=== PATIENT | female | born 1965 | race Hispanic/Latino ===

== ENCOUNTER 2022-02-28 14:16 | Emergency (ER) | payer OTHER, SELFPAY ==
--- OUTSIDE RECORDS SUMMARY | 2022-02-28 14:25 | XMS REPORT | Continuity of Care Document ---
:1965 Author Organization [facility] t Address [address] [place] [address] Dr. H[address]. [address] [place] [address] Care Team Providers Name Role Phone Pcp, Patient Does Not Have A Primary Care Physician [id number] Yoandy CAMPOS, Jenny Daniels Attending Clinician Quin Akbar Attending Clinician Lana Chirinos LVN Attending Clinician Hernán CASTAÑEDA, Eduardo Zarate Attending Clinician HARVEY GILES Attending Clinician Unavailable Corey CASTAÑEDA, Sriram Love Attending Clinician Sheldon Weir MD Attending Clinician Hugh CASTAÑEDA, Refugio Hodge Attending Clinician Liliam CASTAÑEDA, Ruddy Richard Attending Clinician Harvey Giles MD Attending Clinician HANNAH DILLARD Attending Clinician Unavailable Hannah Dillard DO Attending Clinician Doctor Unassigned, [place] Attending Clinician Unavailable Brendan Wolf Attending Clinician HARVEY GILES Admitting Clinician Unavailable Harvey Giles MD Admitting Clinician Payers Payer Name Policy Type Policy Number Effective Date Expiration Date Fay sommer [facility] [id number] 2019 PPO 00:00:00 Problems Condition Condition Condition Status Onset Resolution Last Treating Co mments Source Name Details Category Date Date Treatment Clinician Date Morbid Morbid Disease Active Univers obesity obesity 6-18 [place] mass index mass index 00 Me dical of 50 or of 50 or Branch higher higher Pulmonary Pulmonary Disease Active Uni vers embolus, embolus, 6-17 ity of left left 00:00: [place] 00 Medical Branch Exposure Exposure Disease Active Unive rs of vaginal of vaginal 08-15 it y of mesh mesh 00:00: [place] through through Medical vaginal vaginal Branch wall wall Vaginismus Vaginismus Disease Active U nivers 4-03 ity of 00:00: [place] [facility] Dyspareuni Dyspareuni Disease Active U nivers a a 4-03 ity of 00:00: [place] [facility] Normal Normal Disease Active Univers breast breast 3-08 ity of exam exam 00:00: [place] 00 Medical Branch Normal Normal Disease Active Univers breast breast 3-08 ity of exam exam 00:00: [place] 00 Medical Branch Chronic Chronic Disease Active 2009-05 Univers pain pain 2-16 ity of syndrome syndrome 00:00: [place] 00 Medical Branch Subclinica Subclinica Disease Active 2009-05 U nivers l l 2-16 ity of hypothyroi hypothyroi 00:[place] dism dism 00 Medical [place] Cervicalgi Cervicalgi Disease Active 2005-05 U nivers a a 2-11 ity of 00:00: [place] 00 Medical Branch Myalgia Myalgia Disease Active 2005-05 Overview: Univ ers and and 05-24 Formattin ity of myositis myositis 00:00: g of this [place] 00 note Medical might be Branch different from the original. 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 classified classified Br anch Simple and Simple and Disease Active Overview : Univers unspecifie unspecifie 01-03 Formattin ity of d goiter d goiter 00:00: g of this [place] 00 note Medical might be Branch different from the original. 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 Arms and legs Urinary Urinary Disease Active Overview: Univ ers incontinen incontinen 01-03 Formattin ity of ce ce 00:00: g of this [place] 00 note Medical might be Branch different from the original. 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 Positive R0, a sed rate of 48, and positive RA factor; hep C is neg and so is the anti-CCP Ab. Anti-DNA was negative too. Allergies, Adverse Reactions, Alerts Allergy Allergy Status Severity Reaction(s) Onset Inactive Treating Comm ents Source Name Type Date Date Clinician NO KNOWN Drug Active Univers ALLERGIE Class ity of S [facility] Social History Social Habit Start Date Stop Date Quantity Comments Source Alcohol intake 2021-10-30 2021-10-30 Current University of 00:00:00 00:00:00 non-drinker of [facility] alcohol (finding) Branch Exposure to 2021-10-19 2021-10-29 Not sure University SARS-CoV-2 00:00:00 16:16:00 [place] Medical (event) Branch Tobacco use and 2012-07-20 2012-07-20 Smokeless tobacco Un iversity of exposure 00:00:00 00:00:00 non-user [facility] Tobacco Comment 2006-08-01 2006-08-01 Basically a Universi ty of 00:00:00 00:00:00 non-smoker. [facility] Sex Ass[birth year] At [birth year] Universit y of 00:00:00 00:00:00 [facility] Smoking Status Start Date Stop Date Source Never smoked tobacco [facility] Medications Ordered Filled Start Stop Current Ordering Indication Dosage Frequency Signature Comments Components Source Medication Medication Date Date Medication? Clinician (SIG) Name Name INSTILL 4 2021-0 No DROPS INTO 12-02 AFFECTED 00:00: EAR THREE 00 TIMES DAILY FOR 7 DAYS Dose 2021-0 No Unknown 12-02 00:00: 00 Dose 2021-0 No Unknown 12-02 00:00: 00 Dose 2-0 No 250 Unknown 12-02 00:00: 00 Dose 2-0 No Unknown 12-02 00:00: 00 INSTILL 4 2021-0 No DROPS INTO 12-02 AFFECTED 00:00: EAR THREE 00 TIMES DAILY FOR 7 DAYS Dose 2-0 No Unknown 12-02 00:00: 00 Dose 2022-0 No Unknown 12-02 00:00: 00 Dose 2022-0 No 250 Unknown 12-02 00:00: 00 Dose 2022-0 No Unknown 12-02 00:00: 00 INSTILL 4 2021-0 No DROPS INTO 11-19 AFFECTED 00:00: EAR THREE 00 TIMES DAILY FOR 7 DAYS TAKE 3 2-0 No 250 TABLETS BY 7-08 MOUTH EVERY 00:00: 24 00 (TWENTY-FOU R) HOURS FOR 4 DAYS. Dose 2-0 No 5 Unknown 11-19 00:00: 00 Dose 2022-0 No Unknown 11-19 00:00: 00 Eliquis 5 2021-0 No 1mg mg tablet 11-19 00:00: 00 TAKE 1 2-0 No TABLET BY 7-08 MOUTH IN 00:00: THE MORNING 00 ON AN EMPTY STOMACH 30 TO 60 MINUTES PRIOR TO BREAKFAST Dose 2022-0 No Unknown 11-19 00:00: 00 Dose 2022-0 No Unknown 11-19 00:00: 00 INSTILL 4 2022-0 No DROPS INTO 11-19 AFFECTED 00:00: EAR THREE 00 TIMES DAILY FOR 7 DAYS TAKE 3 2022-0 No 250 TABLETS BY 7-08 MOUTH EVERY 00:00: 24 00 (TWENTY-FOU R) HOURS FOR 4 DAYS. Dose 2022-0 No 5 Unknown 11-19 00:00: 00 Dose 2022-0 No Unknown 11-19 00:00: 00 Eliquis 5 2022-0 No 1mg mg tablet 11-19 00:00: 00 TAKE 1 2022-0 No TABLET BY 7-08 MOUTH IN 00:00: THE MORNING 00 ON AN EMPTY STOMACH 30 TO 60 MINUTES PRIOR TO BREAKFAST Dose 2022-0 No Unknown 11-19 00:00: 00 Dose 2022-0 No Unknown 11-19 00:00: 00 Dose 2022-0 No Unknown 11-17 00:00: 00 Dose 2022-0 No Unknown 11-17 00:00: 00 TAKE 3 2022-0 No TABLETS BY 6-29 MOUTH EVERY 00:00: 24 00 (TWENTY-FOU R) HOURS FOR 4 DAYS. TAKE 3 2022-0 No TABLETS BY 6-29 MOUTH EVERY 00:00: 24 00 (TWENTY-FOU R) HOURS FOR 4 DAYS. TAKE 3 2022-0 No TABLETS BY 6-29 MOUTH EVERY 00:00: 24 00 (TWENTY-FOU R) HOURS FOR 4 DAYS. TAKE 3 2022-0 No TABLETS BY 6-29 MOUTH EVERY 00:00: 24 00 (TWENTY-FOU R) HOURS FOR 4 DAYS. TAKE 1 2022-0 No CAPSULE BY 6-28 MOUTH THREE 00:00: TIMES DAILY 00 NEEDED FOR COUGH TAKE 3 2022-0 No TABLETS BY 6-28 MOUTH EVERY 00:00: 24 00 (TWENTY-FOU R) HOURS FOR 4 DAYS. TAKE 1 2022-0 No TABLET BY 6-28 MOUTH IN 00:00: THE MORNING 00 ON AN EMPTY STOMACH 30 TO 60 MINUTES PRIOR TO BREAKFAST TAKE 1 2022-0 No TABLET BY 6-28 MOUTH 2 00:00: (TWO) TIMES 00 DAILY FOR 180 DAYS. INDICATIONS : A CLOT IN THE LUNG TAKE 1 2022-0 No TABLET BY 6-28 MOUTH 2 00:00: (TWO) TIMES 00 DAILY FOR 180 DAYS. INDICATIONS : A CLOT IN THE LUNG TAKE 1 2022-0 No TABLET BY 6-28 MOUTH IN 00:00: THE MORNING 00 ON AN EMPTY STOMACH 30 TO 60 MINUTES PRIOR TO BREAKFAST TAKE 1 2022-0 No CAPSULE BY 6-28 MOUTH THREE 00:00: TIMES DAILY 00 NEEDED FOR COUGH TAKE 3 2022-0 No TABLETS BY 6-28 MOUTH EVERY 00:00: 24 00 (TWENTY-FOU R) HOURS FOR 4 DAYS. TAKE 1 2022-0 No TABLET BY 6-28 MOUTH IN 00:00: THE MORNING 00 ON AN EMPTY STOMACH 30 TO 60 MINUTES PRIOR TO BREAKFAST TAKE 1 2022-0 No TABLET BY 6-28 MOUTH 2 00:00: (TWO) TIMES 00 DAILY FOR 180 DAYS. INDICATIONS : A CLOT IN THE LUNG TAKE 1 2022-0 No TABLET BY 6-28 MOUTH 2 00:00: (TWO) TIMES 00 DAILY FOR 180 DAYS. INDICATIONS : A CLOT IN THE LUNG TAKE 1 2022-0 No TABLET BY 6-28 MOUTH IN 00:00: THE MORNING 00 ON AN EMPTY STOMACH 30 TO 60 MINUTES PRIOR TO BREAKFAST apixaban 2022-0 2022- No 1291 5mg Take 1 Univer s (ELIQUIS) 5 11-06 tablet by it y of mg tablet 00:00: 05:59 mouth 2 [place] 00 :[place] (two) Medical times Branch daily for 180 days. Indication s: a clot in the lung apixaban 2022-0 2022- No 1291 5mg Take 1 Univer s (ELIQUIS) 5 6- 12-23 tablet by it y of mg tablet 00:00: 05:59 mouth 2 [place] 00 :00 (two) Medical times Branch daily for 180 days. Indication s: a clot in the lung apixaban 2022-0 2022- No 1291 5mg Take 1 Univer s (ELIQUIS) 5 6-08 05- tablet by it y of mg tablet 00:00: 05:59 mouth 2 [place] 00 :00 (two) Medical times Branch daily for 180 days. Indication s: a clot in the lung apixaban 2022-0 2022- No 1291 5mg Take 1 Univer s (ELIQUIS) 5 6-05-06 tablet by it y of mg tablet 00:00: 05:59 mouth 2 [place] 00 :00 (two) Medical times Branch daily for 180 days. Indication s: a clot in the lung apixaban 2021- No 1291 5mg Take 1 Univer s (ELIQUIS) 5 11-0623 tablet by it y of mg tablet 00:00: 05:59 mouth 2 [place] 00 :00 (two) Medical times Branch daily for 180 days. Indication s: a clot in the lung apixaban 2021- No 1291 5mg Take 1 Univer s (ELIQUIS) 5 11-06 tablet by it y of mg tablet 00:00: 05:59 mouth 2 [place] 00 :00 (two) Medical times Branch daily for 180 days. Indication s: a clot in the lung apixaban 2021- No 1291 5mg Take 1 Univer s (ELIQUIS) 5 11-06 tablet by it y of mg tablet 00:00: 05:59 mouth 2 [place] 00 :00 (two) Medical times Branch daily for 180 days. Indication s: a clot in the lung levoFLOXaci No 250mg 250 mg, U nivers n 10-31 Oral, Q24H ity of (LEVAQUIN) 02:00: 01:59 ABX, 4 [place] tablet 250 00 :00 doses, Medical mg First dose Branch on Mon10/30/21 at 2100, Last dose on Mon11/02/21 at 2100, SHADY
Re ason for Anti-Infec tive: Documented Infection< br>Documen omar Infection Site: Respirator y
Durat ion of Therapy: 7 days codeine-gua Yes 5mL 5 mL, Unive rs ifenesin 6-18 Oral, ity of (ROBITUSSIN 17:14: Q6HPRN, [place] AC) 10-100 50 Starting Medic al mg/5 mL on Sat Branch oral 10/30/21 at solution 5 1214, mL Until Discontinu ed, Routine, Cough ibuprofen Yes 200mg Take 200 Uni vers (ADVIL) 200 6-18 mg by ity of mg tablet 17:08: mouth [place] 31 every 6 Medical (six) Branch hours as needed. ibuprofen 2022-0 Yes 200mg Take 200 Uni vers (ADVIL) 200 6-18 mg by ity of mg tablet 17:08: mouth [place] 31 every 6 Medical (six) Branch hours as needed. ibuprofen 2022-0 Yes 200mg Take 200 Uni vers (ADVIL) 200 6-18 mg by ity of mg tablet 17:08: mouth [place] 31 every 6 Medical (six) Branch hours as needed. ibuprofen 2022-0 Yes 200mg Take 200 Uni vers (ADVIL) 200 6-18 mg by ity of mg tablet 17:08: mouth [place] 31 every 6 Medical (six) Branch hours as needed. ibuprofen 2022-0 Yes 200mg Take 200 Uni vers (ADVIL) 200 6-18 mg by ity of mg tablet 17:08: mouth [place] 31 every 6 Medical (six) Branch hours as needed. ibuprofen 2022-0 Yes 200mg Take 200 Uni vers (ADVIL) 200 6-18 mg by ity of mg tablet 17:08: mouth [place] 31 every 6 Medical (six) Branch hours as needed. ibuprofen 2022-0 Yes 200mg Take 200 Uni vers (ADVIL) 200 6-18 mg by ity of mg tablet 17:08: mouth [place] 31 every 6 Medical (six) Branch hours as needed. Sliding 2021-0 Yes Subcutaneo Univ ers Scale -18 us, TID ity of Insulin - 13:00: MEALS+HS, [place] Lispro 00 First dose Medical (HumaLOG) + on Sat Branch Fsbg 10/30/21 at Testing 0800, Until Discontinu ed, Routine enoxaparin 2021-0 Yes 1mg/kg 70 mg Univ ers (LOVENOX) 10-30 (rounded ity of injection 13:00: from 65.8 [place] 70 mg 00 mg = 1 Medical mg/kg Branch ?65.8 kg), Subcutaneo us, Q12H, First dose (after last modificati on) on 10/30/21 at 0800, Until Discontinu ed, Routine levothyroxi 2021-0 Yes 50ug 50 mcg, Uni vers ne 18 Oral, ity of (SYNTHROID) 11:00: QAM-0600, [place] tablet 50 00 First dose Medi unique mcg on Sat Branch 10/30/21 at 0600, Until Discontinu ed, Routine polyethylen 2021-0 Yes 17g 17 g, Unive rs e glycol -18 Oral, ity of 3350 powder 06:45: DAILY, [place] 17 g 00 First dose Medical on [place] Branch 10/30/21 at 0145, Until Discontinu ed, Routine glucagon 2021-0 Yes 1mg 1 mg, Univers (GLUCAGEN 10-30 Intramuscu ity of DIAGNOSTIC 06:41: [place], PRN, [place] KIT) 05 Starting Medical injection 1 on [place] Branch mg 10/30/21 at 0141, Until Discontinu ed, SHADY, Blood Glucose < or = 70 mg/dL and patient is unable to swallow or has mental changes. dextrose 0 Yes 250mL 250 mL, IV Un kwesi 10% (D10W) 10-30 Infusion, ity of bolus 06:41: PRN - SEE [place] infusion 05 INSTRUCTIO Medic al 250 mL NS, Branch Administer over 60 Minutes, BS <70, Starting on [place] 10/30/21 at 0141
De xtrose 10% 250 mL bag contains:& nbsp;10 gm = 100 mL 20 gm = 200 mL 25 gm = 250 mL (whole bag) The maximum rate at which dextrose can be infused without producing glycosuria is 0.5 g/kg/hour. &nbs p;BUD: If wrapper is open bag is good for 30 days at room temperatur e. <b r> albuterol 2021-0 Yes 1{puff} 1 Puff, Un kwesi (VENTOLIN) 18 Inhalation ity of inhaler 1 04:42: , Q6HPRN, [place] Puff 11 Starting Medical on Mon Branch 10/29/21 at 2342, Until Discontinu ed, Routine, Wheezing, Shortness of Breath benzonatate 2021-0 Yes 100mg 100 mg, Un kwesi (TESSALON 6-18 Oral, ity of PERLES) 04:41: Q8HPRN, [place] capsule 100 58 Starting Medi unique mg on Mon Branch 10/29/21 at 2341, Until Discontinu ed, Routine, Cough warfarin 2022-0 2022- No 5mg 5 mg, Univers (COUMADIN) 10-30 Oral, ONCE it y of tablet 5 mg 04:15: 04:06 NOW, 1 [place] 00 :00 dose, On Medical [facility] Branch 10/29/21 at 2315, SHADY
IN R Goal Range: 2-3
IND ICATION (More than one indication for warfarin can be selected): DVT and/or PE enoxaparin 2021- No 60mg 60 mg, Univ ers (LOVENOX) 10-30 Subcutaneo ity of injection 04:15: 04:07 [place], ONCE, [place] 60 mg 00 :00 1 dose, On [facility] 10/29/21 at 2315, SHADY levoFLOXaci 2021- No 500mg 500 mg, IV Univers n in D5W 10-30 Piggyback, ity of (LEVAQUIN) 04:15: 04:26 ONCE, 1 [place] 500 mg/100 00 :00 dose, On Medic al mL [facility] Branch Piggyback 10/29/21 at 500 mg 2315, Administer over 60 Minutes, 100 mL
R renato for Anti-Infec tive: Documented Infection< br>Documen omar Infection Site: Respirator y
Du ration of Therapy: 7 days acetaminoph Yes 650mg 650 mg, Un kwesi en 10-30 Oral, ity of (TYLENOL) 04:14: Q6HPRN, [place] tablet 650 19 Starting Medic al mg on [facility] Branch 10/29/21 at 2314, Until Discontinu ed, Routine, Pain (scale 1-3) ipratropium 2021- No 3mL 3 mL, Univ ers -albuteroL 10-30 Inhalation it y of (DUONEB) 02:15: 01:28 , ONCE, 1 [place] 0.5 mg-3 00 :00 dose, On Medical mg(2.5 mg Mon [place] [employer])/3 mL 10/29/21 at nebulizer 2114, SHADY solution 3 mL iopamidol 2021- No [id number] 80mL 80 mL, Univers (ISOVUE 10-30 Intravenou ity o f 370-500 mL) 01:02: 01:02 s, ONCE, 1 [place] injection 00 :00 dose, On Medica l 80 mL Fri Branch 10/29/21 at 2015, Routine apixaban 2021- No 1291 10mg Take 2 Univer s (ELIQUIS) 5 10-30- tablets by i ty of mg tablet 00:00: 04:59 mouth 2 [place] 00 :00 (two) Medical times Branch daily for 7 days. Indication s: a clot in the lung codeine-gua 2021- No 5mL Take 5 mL Univers ifenesin 10-30 by mouth ity of 10-100 mg/5 00:00: 04:59 every 6 [place] mL oral 00 :00 (six) Medical solution hours as Branch needed for Cough for up to 7 days. Indication s: Cough apixaban 2021- No 1291 10mg Take 2 Univer s (ELIQUIS) 5 10-30 tablets by i ty of mg tablet 00:00: 04:59 mouth 2 [place] 00 :00 (two) Medical times Branch daily for 7 days. Indication s: a clot in the lung codeine-gua 2021- No 5mL Take 5 mL Univers ifenesin 10-30 by mouth ity of 10-100 mg/5 00:00: 04:59 every 6 [place] mL oral 00 :00 (six) Medical solution hours as Branch needed for Cough for up to 7 days. Indication s: Cough apixaban 2021- No 1291 10mg Take 2 Univer s (ELIQUIS) 5 10-30- tablets by i ty of mg tablet 00:00: 04:59 mouth 2 [place] 00 :00 (two) Medical times Branch daily for 7 days. Indication s: a clot in the lung codeine-gua 2021- No 5mL Take 5 mL Univers ifenesin 10-30 by mouth ity of 10-100 mg/5 00:00: 04:59 every 6 [place] mL oral 00 :00 (six) Medical solution hours as Branch needed for Cough for up to 7 days. Indication s: Cough apixaban 2021- No 1291 10mg Take 2 Univer s (ELIQUIS) 5 10-30 tablets by i ty of mg tablet 00:00: 04:59 mouth 2 [place] 00 :00 (two) Medical times Branch daily for 7 days. Indication s: a clot in the lung codeine-gua 2021- No 5mL Take 5 mL Univers ifenesin 10-30 by mouth ity of 10-100 mg/5 00:00: 04:59 every 6 [place] mL oral 00 :00 (six) Medical solution hours as Branch needed for Cough for up to 7 days. Indication s: Cough levoFLOXaci 2021- No [id number] 750mg Take 3 Univers n 250 mg 10-30 tablets by ity of tablet 00:00: 04:59 mouth [place] 00 :00 every 24 Medical (twenty-fo Branch ur) hours for 4 days. levoFLOXaci 2021- No [id number] 750mg Take 3 Univers n 250 mg 10-30 tablets by ity of tablet 00:00: 04:59 mouth [place] 00 :00 every 24 Medical (twenty-fo Branch ur) hours for 4 days. levoFLOXaci 2021- No [id number] 750mg Take 3 Univers n 250 mg 10-30 tablets by ity of tablet 00:00: 04:59 mouth [place] 00 :00 every 24 Medical (twenty-fo Branch ur) hours for 4 days. metFORMIN 2021- No 500mg Take 500 Un kwesi 500 mg 10-29 mg by ity of tablet 23:14: 00:00 mouth at [place] 56 :00 bedtime. Medical Branch famotidine 2021- No 20mg 20 mg, Univ ers (PEPCID 10-29 Slow IV ity of (PF)) 22:45: 00:39 Push, [place] injection 00 :00 ONCE, 1 Medical 20 mg dose, On Branch 10/29/21 at 1745, SHADY albuterol 2021- No 2{puff} 2 Puff, U nivers (VENTOLIN) 10-29 Inhalation it y of inhaler 2 22:30: 02:16 , ONCE, 1 [place] Puff 00 :00 dose, On Medical Fri Branch 10/29/21 at 1730, SHADY dexamethaso 2021- No 10mg 10 mg, Uni vers ne sod phos 10-29 Slow IV ity of PF 22:30: 00:39 Push, [place] injection 00 :00 ONCE, 1 Medical 10 mg dose, On Branch 10/29/21 at 1730, 1 mL benzonatate 2021- No 100mg 100 mg, U nivers (TESSALON 10-29 Oral, ity of PERLES) 22:30: 00:39 ONCE, 1 [place] capsule 100 00 :00 dose, On Medi unique mg Fri Branch 10/29/21 at 1730, SHADY BENZONATATE 0 Yes [id number] 100mg Take 1 Univers 100 mg 6-07 capsule by ity of capsule 00:00: mouth 3 [place] 00 (three) Medical times Branch daily as needed for Cough. calcium-mag 2021-0 Yes [id number] Take as Univers nesium-zinc 6-07 directed ity of 333-133-8.3 00:00: for daily [place] mg Tab 00 dose. Medical Branch chlorphenir 2021-0 Yes [id number] 4mg Take 1 Univers amine 4 mg 6-07 tablet by ity of tablet 00:00: mouth [place] 00 every 6 Medical (six) Branch hours as needed for Allergies or Runny nose. BENZONATATE 2021-0 Yes [id number] 100mg Take 1 Univers 100 mg 6-07 capsule by ity of capsule 00:00: mouth 3 [place] 00 (three) Medical times Branch daily as needed for Cough. calcium-mag 2021-0 Yes [id number] Take as Univers nesium-zinc 6-07 directed ity of 333-133-8.3 00:00: for daily [place] mg Tab 00 dose. Medical Branch chlorphenir 2021-0 Yes [id number] 4mg Take 1 Univers amine 4 mg 6-07 tablet by ity of tablet 00:00: mouth [place] 00 every 6 Medical (six) Branch hours as needed for Allergies or Runny nose. BENZONATATE 2021-0 Yes [id number] 100mg Take 1 Univers 100 mg 6-07 capsule by ity of capsule 00:00: mouth 3 [place] 00 (three) Medical times Branch daily as needed for Cough. calcium-mag 2021-0 Yes [id number] Take as Univers nesium-zinc 6-07 directed ity of 333-133-8.3 00:00: for daily [place] mg Tab 00 dose. Medical Branch chlorphenir 2021-0 Yes [id number] 4mg Take 1 Univers amine 4 mg 6-07 tablet by ity of tablet 00:00: mouth [place] 00 every 6 Medical (six) Branch hours as needed for Allergies or Runny nose. BENZONATATE 2021-0 Yes [id number] 100mg Take 1 Univers 100 mg 6-07 capsule by ity of capsule 00:00: mouth 3 [place] 00 (three) Medical times Branch daily as needed for Cough. calcium-mag 2021-0 Yes [id number] Take as Univers nesium-zinc 6-07 directed ity of 333-133-8.3 00:00: for daily [place] mg Tab 00 dose. Medical Branch chlorphenir 2021-0 Yes [id number] 4mg Take 1 Univers amine 4 mg 6-07 tablet by ity of tablet 00:00: mouth [place] 00 every 6 Medical (six) Branch hours as needed for Allergies or Runny nose. BENZONATATE 2021-0 Yes [id number] 100mg Take 1 Univers 100 mg 6-07 capsule by ity of capsule 00:00: mouth 3 [place] 00 (three) Medical times Branch daily as needed for Cough. calcium-mag 2021-0 Yes [id number] Take as Univers nesium-zinc 6-07 directed ity of 333-133-8.3 00:00: for daily [place] mg Tab 00 dose. Medical Branch chlorphenir 2021-0 Yes [id number] 4mg Take 1 Univers amine 4 mg 6-07 tablet by ity of tablet 00:00: mouth [place] 00 every 6 Medical (six) Branch hours as needed for Allergies or Runny nose. BENZONATATE 2-0 Yes [id number] 100mg Take 1 Univers 100 mg 6-07 capsule by ity of capsule 00:00: mouth 3 [place] 00 (three) Medical times Branch daily as needed for Cough. calcium-mag 2021-0 Yes [id number] Take as Univers nesium-zinc 6-07 directed ity of 333-133-8.3 00:00: for daily [place] mg Tab 00 dose. Medical Branch chlorphenir 2021-0 Yes [id number] 4mg Take 1 Univers amine 4 mg 6-07 tablet by ity of tablet 00:00: mouth [place] 00 every 6 Medical (six) Branch hours as needed for Allergies or Runny nose. BENZONATATE 2021-0 Yes [id number] 100mg Take 1 Univers 100 mg 6-07 capsule by ity of capsule 00:00: mouth 3 [place] 00 (three) Medical times Branch daily as needed for Cough. calcium-mag 2021-0 Yes [id number] Take as Univers nesium-zinc 6-07 directed ity of 333-133-8.3 00:00: for daily [place] mg Tab 00 dose. Medical Branch chlorphenir 2021-0 Yes [id number] 4mg Take 1 Univers amine 4 mg 6-07 tablet by ity of tablet 00:00: mouth [place] 00 every 6 Medical (six) Branch hours as needed for Allergies or Runny nose. BENZONATATE 2021-0 Yes [id number] 100mg Take 1 Univers 100 mg 6-07 capsule by ity of capsule 00:00: mouth 3 [place] 00 (three) Medical times Branch daily as needed for Cough. calcium-mag 2021-0 Yes [id number] Take as Univers nesium-zinc 6-07 directed ity of 333-133-8.3 00:00: for daily [place] mg Tab 00 dose. Medical Branch chlorphenir 2021-0 Yes [id number] 4mg Take 1 Univers amine 4 mg 6-07 tablet by ity of tablet 00:00: mouth [place] 00 every 6 Medical (six) Branch hours as needed for Allergies or Runny nose. Bromfed DM 2021-0 No 10mg/5 2 mg-30 4-25 mL mg-10 mg/5 00:00: mL oral 00 syrup Dose 2021-0 No Unknown 4-25 00:00: 00 Bromfed DM 2021-0 No 10mg/5 2 mg-30 4-25 mL mg-10 mg/5 00:00: mL oral 00 syrup Dose 2021-0 No Unknown 4-25 00:00: 00 Dose 2021-0 No Unknown 3-18 00:00: 00 Dose 2021-0 No Unknown 3-18 00:00: 00 Dose 2021-0 No Unknown 3-18 00:00: 00 Dose 2022-0 No Unknown 3-18 00:00: 00 Dose 2-0 No Unknown 3-12 00:00: 00 Dose 2-0 No Unknown 3-12 00:00: 00 Dose 2-0 No Unknown 3-12 00:00: 00 Dose 2-0 No Unknown 3-12 00:00: 00 Dose 2-0 No Unknown 3-12 00:00: 00 Dose 2-0 No Unknown 3-12 00:00: 00 Dose 2-0 No Unknown 3-12 00:00: 00 Dose 2-0 No Unknown 3-12 00:00: 00 Dose 2-0 No Unknown 3-12 00:00: 00 Dose 2-0 No Unknown 3-12 00:00: 00 Dose 2021-0 No Unknown 3-12 00:00: 00 Dose 2-0 No Unknown 3-12 00:00: 00 Dose 2-0 No Unknown 3-12 00:00: 00 Dose 2021-0 No Unknown 3-12 00:00: 00 Dose 2021-0 No Unknown 3-12 00:00: 00 Dose 2-0 No Unknown 3-12 00:00: 00 Dose 2-0 No Unknown 3-12 00:00: 00 Dose 2021-0 No Unknown 3-12 00:00: 00 cholecalcif 2021-0 No 1(50,00 edie 3-05 0 unit) (vitamin 00:00: D3) 1,250 00 mcg (50,000 unit) tablet cholecalcif 2021-0 No 1(50,00 edie 3-05 0 unit) (vitamin 00:00: D3) 1,250 00 mcg (50,000 unit) tablet levothyroxi 2021-0 No 1mcg ne 50 mcg 3-04 tablet 00:00: 00 Dose 2-0 No Unknown 3-04 00:00: 00 Dose 2-0 No Unknown 3-04 00:00: 00 Dose 2-0 No Unknown 3-04 00:00: 00 Dose 2-0 No Unknown 3-04 00:00: 00 Dose 2-0 No Unknown 3-04 00:00: 00 Dose 2-0 No Unknown 3-04 00:00: 00 Dose 2-0 No Unknown 3-04 00:00: 00 levothyroxi 2022-0 No 1mcg ne 50 mcg 3-04 tablet 00:00: 00 Dose 2022-0 No Unknown 3-04 00:00: 00 Dose 2022-0 No Unknown 3-04 00:00: 00 Dose 2022-0 No Unknown 3-04 00:00: 00 Dose 2022-0 No Unknown 3-04 00:00: 00 Dose 2022-0 No Unknown 3-04 00:00: 00 Dose 2022-0 No Unknown 3-04 00:00: 00 Dose 2022-0 No Unknown 3-04 00:00: 00 Dose 2021-0 No Unknown 9- 00:00: 00 Dose 2021-0 No Unknown 9- 00:00: 00 Dose 2021-0 No Unknown 9- 00:00: 00 Dose 2021-0 No Unknown 9- 00:00: 00 Dose 2021-0 No Unknown 9- 00:00: 00 Dose 2021-0 No Unknown 9- 00:00: 00 Dose 1-0 No Unknown 9- 00:00: 00 Dose 1-0 No Unknown 9- 00:00: 00 Dose 2021-0 No Unknown 8-04 00:00: 00 diclofenac 1-0 No 1mg sodium 75 8-04 mg 00:00: tablet,kaitlin 00 yed release levothyroxi 1-0 No 1mcg ne 50 mcg 8-04 tablet 00:00: 00 Dose 2021-0 No Unknown 8-04 00:00: 00 diclofenac 2021-0 No 1mg sodium 75 8-04 mg 00:00: tablet,kaitlin 00 yed release levothyroxi 1-0 No 1mcg ne 50 mcg 8-04 tablet 00:00: 00 levothyroxi 1-0 No 1mcg ne 50 mcg 6-28 tablet 00:00: 00 levothyroxi 1-0 No 1mcg ne 50 mcg 6-28 tablet 00:00: 00 atorvastati 1-0 No 1mg n 40 mg 4-19 tablet 00:00: 00 levothyroxi 1-0 No 1mcg ne 50 mcg 4-19 tablet 00:00: 00 atorvastati 1-0 No 1mg n 40 mg 4-19 tablet 00:00: 00 levothyroxi 2021-0 No 1mcg ne 50 mcg 4-19 tablet 00:00: 00 metformin No 1mg 500 mg 4-12 tablet 00:00: 00 atorvastati No 1mg n 20 mg 4-12 tablet 00:00: 00 metformin No 1mg 500 mg 4-12 tablet 00:00: 00 atorvastati No 1mg n 20 mg 4-12 tablet 00:00: 00 multivitami Yes [id number] 1{capsu Take 1 [facility] n capsule 2-03 le} capsule by ity of 00:00: mouth [place] 00 daily. [facility] multivitami Yes [id number] 1{capsu Take 1 [facility] n capsule 2-03 le} capsule by ity of 00:00: mouth [place] 00 daily. Medical Branch multivitami Yes [id number] 1{capsu Take 1 [facility] n capsule 2-03 le} capsule by ity of 00:00: mouth [place] 00 daily. Medical Branch multivitami Yes [id number] 1{capsu Take 1 [facility] n capsule 2-03 le} capsule by ity of 00:00: mouth [place] 00 daily. Medical [facility] multivitami Yes [id number] 1{capsu Take 1 [facility] n capsule 2-03 le} capsule by ity of 00:00: mouth [place] 00 daily. [facility] Branch multivitami Yes [id number] 1{capsu Take 1 [facility] n capsule 2-03 le} capsule by ity of 00:00: mouth [place] 00 daily. Medical Branch multivitami Yes [id number] 1{capsu Take 1 [facility] n capsule 2-03 le} capsule by ity of 00:00: mouth [place] 00 daily. Medical Branch multivitami Yes [id number] 1{capsu Take 1 [facility] n capsule 2-03 le} capsule by ity of 00:00: mouth [place] 00 daily. [facility] benzonatate Yes [id number] 100mg Take 1 [facility] 100 mg 2-03 capsule by ity of capsule 00:00: mouth 3 [place] 00 (three) Medical times Branch daily as needed for Cough. chlorphenir Yes [id number] 4mg Take 1 [facility] amine 4 mg 2-03 tablet by ity of tablet 00:00: mouth [place] 00 every 6 Medical (six) Branch hours as needed for Allergies or Runny nose. multivitami Yes [id number] 1{capsu Take 1 [facility] n capsule 2- le} capsule by ity of 00:00: mouth [place] 00 daily. Medical Branch calcium-mag Yes [id number] Take as [facility] nesium-zinc 2-03 directed ity of 333-133-8.3 00:00: for daily [place] mg Tab 00 dose. [facility] benzonatate 2021- No [id number] 100mg Take 1 [facility] 100 mg 2- 06- capsule by ity of capsule 00:00: 00:00 mouth 3 [place] 00 :00 (three) Medical times Branch daily as needed for Cough. chlorphenir 2021- No [id number] 4mg Take 1 [facility] amine 4 mg 2- 06- tablet by ity of tablet 00:00: 00:00 mouth [place] 00 :00 every 6 Medical (six) Branch hours as needed for Allergies or Runny nose. calcium-mag 2021- No [id number] Take as [facility] nesium-zinc 2-03 06- directed ity of 333-133-8.3 00:00: 00:00 for daily [place] mg Tab 00 :00 dose. Medical Branch hydrOXYzine 2019-05 2020- No 50mg 50 mg, Uni vers (ATARAX) 06-08 Oral, ity of tablet 50 23:00: 22:26 ONCE, 1 [place] 00 :[place] dose, Wed Medical 04/08/20 Branch at 1700, SHADY metFORMIN 2019-05 Yes 500mg Take 500 [facility] vers 500 mg 1-25 mg by ity of tablet 21:19: mouth at [place] 08 bedtime. Medical Branch metFORMIN 2019-05 Yes 500mg Take 500 [facility] vers 500 mg 1-25 mg by ity of tablet 21:19: mouth at [place] 08 bedtime. Medical Branch metFORMIN 2019-05 Yes 500mg Take 500 [facility] vers 500 mg 1-25 mg by ity of tablet 21:19: mouth at [place] 08 bedtime. Medical Branch metFORMIN 2019-05 Yes 500mg Take 500 [facility] vers 500 mg 1-25 mg by ity of tablet 15:19: mouth at [place] 08 bedtime. Medical Branch hydrOXYzine 2020-1 Yes [id number] 50mg Take 1 [facility] 50 mg 1-25 tablet by ity of tablet 00:00: mouth [place] 00 every 8 Medical (eight) Branch hours as needed for Anxiety. hydrOXYzine 2020-1 Yes [id number] 50mg Take 1 [facility] 50 mg 1-25 tablet by ity of tablet 00:00: mouth [place] 00 every 8 Medical (eight) Branch hours as needed for Anxiety. hydrOXYzine 2020-1 Yes [id number] 50mg Take 1 [facility] 50 mg 1-25 tablet by ity of tablet 00:00: mouth [place] 00 every 8 Medical (eight) Branch hours as needed for Anxiety. hydrOXYzine 2020-1 Yes [id number] 50mg Take 1 [facility] 50 mg 1-25 tablet by ity of tablet 00:00: mouth [place] 00 every 8 Medical (eight) Branch hours as needed for Anxiety. hydrOXYzine 2020-1 Yes [id number] 50mg Take 1 [facility] 50 mg 1-25 tablet by ity of tablet 00:00: mouth [place] 00 every 8 Medical (eight) Branch hours as needed for Anxiety. hydrOXYzine 2020-1 Yes [id number] 50mg Take 1 [facility] 50 mg 1-25 tablet by ity of tablet 00:00: mouth [place] 00 every 8 Medical (eight) Branch hours as needed for Anxiety. hydrOXYzine 2020-1 Yes [id number] 50mg Take 1 [facility] 50 mg 1-25 tablet by ity of tablet 00:00: mouth [place] 00 every 8 Medical (eight) Branch hours as needed for Anxiety. hydrOXYzine 2020-1 Yes [id number] 50mg Take 1 [facility] 50 mg 1-25 tablet by ity of tablet 00:00: mouth [place] 00 every 8 Medical (eight) Branch hours as needed for Anxiety. hydrOXYzine 2020-1 Yes [id number] 50mg Take 1 [facility] 50 mg 1-25 tablet by ity of tablet 00:00: mouth [place] 00 every 8 Medical (eight) Branch hours as needed for Anxiety. hydrOXYzine 2020-1 Yes [id number] 50mg Take 1 [facility] 50 mg 1-25 tablet by ity of tablet 00:00: mouth [place] 00 every 8 Medical (eight) Branch hours as needed for Anxiety. hydrOXYzine 2020-1 Yes [id number] 50mg Take 1 [facility] 50 mg 1-25 tablet by ity of tablet 00:00: mouth [place] 00 every 8 Medical (eight) Branch hours as needed for Anxiety. Macrobid 2020-0 No 1mg 100 mg 8-10 capsule 00:00: 00 Macrobid 2020-0 No 1mg 100 mg 8-10 capsule 00:00: 00 levothyroxi 2020-0 No 1mcg ne 50 mcg 7-07 tablet 00:00: 00 levothyroxi 2020-0 No 1mcg ne 50 mcg 7-07 tablet 00:00: 00 metformin 2020-0 No 1mg 500 mg 6-26 tablet 00:00: 00 metformin 2020-0 No 1mg 500 mg 6-26 tablet 00:00: 00 Premarin 2020-0 No 1mg/gra 0.625 5-12 m mg/gram 00:00: vaginal 00 cream Macrobid 2020-0 No 1mg 100 mg 5-12 capsule 00:00: 00 Premarin 2020-0 No 1mg/gra 0.625 5-12 m mg/gram 00:00: vaginal 00 cream Macrobid 2020-0 No 1mg 100 mg 5-12 capsule 00:00: 00 levothyroxi 2020-0 No 1mcg ne 50 mcg 4-27 tablet 00:00: 00 Macrobid 2020-0 No 1mg 100 mg 4-27 capsule 00:00: 00 levothyroxi 2020-0 No 1mcg ne 50 mcg 4-27 tablet 00:00: 00 Macrobid 2020-0 No 1mg 100 mg 4-27 capsule 00:00: 00 metformin 2020-0 No 1mg 500 mg 3-09 tablet 00:00: 00 atorvastati 2020-0 No 2mg n 10 mg 3-09 tablet 00:00: 00 levothyroxi 2020-0 No 1mcg ne 25 mcg 3-09 tablet 00:00: 00 metformin 2020-0 No 1mg 500 mg 3-09 tablet 00:00: 00 atorvastati 2020-0 No 2mg n 10 mg 3-09 tablet 00:00: 00 levothyroxi 2020-0 No 1mcg ne 25 mcg 3-09 tablet 00:00: 00 metformin 2020-0 No 1mg 500 mg 1-15 tablet 00:00: 00 atorvastati 2020-0 No 2mg n 10 mg 1-15 tablet 00:00: 00 metformin 2020-0 No 1mg 500 mg 1-15 tablet 00:00: 00 atorvastati 2020-0 No 2mg n 10 mg 1-15 tablet 00:00: 00 levothyroxi 2019-1 No 1mcg ne 25 mcg 2-30 tablet 00:00: 00 levothyroxi 2019-1 No 1mcg ne 25 mcg 2-30 tablet 00:00: 00 triamcinolo 2019-0 No 1% ne 5-14 acetonide 00:00: 0.1 % 00 topical cream triamcinolo 2019-0 No 1% ne 5-14 acetonide 00:00: 0.1 % 00 topical cream triamcinolo 2019-0 No 1% ne 5-14 acetonide 00:00: 0.1 % 00 topical cream atorvastati 2019-0 No 2mg n 10 mg 5-14 tablet 00:00: 00 levothyroxi 2019-0 No 1mcg ne 25 mcg 5-14 tablet 00:00: 00 levothyroxi 2019-0 No 1mcg ne 25 mcg 5-14 tablet 00:00: 00 levothyroxi 2019-0 No 1mcg ne 25 mcg 5-14 tablet 00:00: 00 triamcinolo 2019-0 No 1% ne 5-14 acetonide 00:00: 0.1 % 00 topical cream atorvastati 2019-0 No 2mg n 10 mg 5-14 tablet 00:00: 00 levothyroxi 2019-0 No 1mcg ne 25 mcg 5-14 tablet 00:00: 00 levothyroxi 2019-0 No 1mcg ne 25 mcg 5-14 tablet 00:00: 00 levothyroxi 2019-0 No 1mcg ne 25 mcg 5-14 tablet 00:00: 00 amoxicillin 2019-0 No 2mg 500 mg 3-30 tablet 00:00: 00 clarithromy 2019-0 No 1mg greg 500 mg 3-30 tablet 00:00: 00 omeprazole 2019-0 No 1mg 20 mg 3-30 capsule,del 00:00: ayed 00 release amoxicillin 2019-0 No 2mg 500 mg 3-30 tablet 00:00: 00 clarithromy 2019-0 No 1mg greg 500 mg 3-30 tablet 00:00: 00 omeprazole 2019-0 No 1mg 20 mg 3-30 capsule,del 00:00: ayed 00 release cyclobenzap 2019-0 No 1mg rine 10 mg 3-04 tablet 00:00: 00 prednisone 2019-0 No 1mg 20 mg 3-04 tablet 00:00: 00 promethazin 2018-0 No 5mg/5 e-DM 6.25 3-04 mL mg-15 mg/5 00:00: mL oral 00 syrup cyclobenzap 2018-0 No 1mg rine 10 mg 3-04 tablet 00:00: 00 prednisone 2018-0 No 1mg 20 mg 3-04 tablet 00:00: 00 promethazin 0 No 5mg/5 e-DM 6.25 3-04 mL mg-15 mg/5 00:00: mL oral 00 syrup metformin 2016-05 No 1mg 500 mg 0-30 tablet 00:00: 00 metformin 2016-05 No 1mg 500 mg 0-30 tablet 00:00: 00 levothyroxi 2016-05 No 1mcg ne 50 mcg 0-30 tablet 00:00: 00 metformin 2016-05 No 1mg 500 mg 0-30 tablet 00:00: 00 metformin 2016-05 No 1mg 500 mg 0-30 tablet 00:00: 00 levothyroxi 2016-05 No 1mcg ne 50 mcg 0-30 tablet 00:00: 00 ibuprofen Yes 200mg Take 200 Uni vers (ADVIL) 200 2-15 mg by ity of mg tablet 18:44: mouth [place] 03 every 6 Medical (six) Branch hours as needed. ibuprofen Yes 200mg Take 200 [facility] vers (ADVIL) 200 2-15 mg by ity of mg tablet 18:44: mouth [place] 03 every 6 Medical (six) Branch hours as needed. ibuprofen Yes 200mg Take 200 [facility] vers (ADVIL) 200 2-15 mg by ity of mg tablet 18:44: mouth [place] 03 every 6 Medical (six) Branch hours as needed. ibuprofen Yes 200mg Take 200 [facility] vers (ADVIL) 200 2-15 mg by ity of mg tablet 12:44: mouth [place] 03 every 6 Medical (six) Branch hours as needed. traMADOL 50 Yes 50mg Take 1 [facility] ers mg tablet 1-24 tablet by ity o f 00:00: mouth [place] 00 every 6 Medical (six) Branch hours as needed for Pain (scale 4-6) for up to 30 doses. traMADOL 50 Yes 50mg Take 1 [facility] ers mg tablet 1-24 tablet by ity o f 00:00: mouth [place] 00 every 6 Medical (six) Branch hours as needed for Pain (scale 4-6) for up to 30 doses. traMADOL 50 2017-0 Yes 50mg Take 1 [facility] ers mg tablet 1-24 tablet by ity o f 00:00: mouth [place] 00 every 6 Medical (six) Branch hours as needed for Pain (scale 4-6) for up to 30 doses. traMADOL 50 2017-0 Yes 50mg Take 1 [facility] ers mg tablet 1-24 tablet by ity o f 00:00: mouth [place] 00 every 6 Medical (six) Branch hours as needed for Pain (scale 4-6) for up to 30 doses. traMADOL 50 2017-0 Yes 50mg Take 1 [facility] ers mg tablet 1-24 tablet by ity o f 00:00: mouth [place] 00 every 6 Medical (six) Branch hours as needed for Pain (scale 4-6) for up to 30 doses. traMADOL 50 2017-0 Yes 50mg Take 1 [facility] ers mg tablet 1-24 tablet by ity o f 00:00: mouth [place] 00 every 6 Medical (six) Branch hours as needed for Pain (scale 4-6) for up to 30 doses. traMADOL 50 2017-0 Yes 50mg Take 1 [facility] ers mg tablet 1-24 tablet by ity o f 00:00: mouth [place] 00 every 6 Medical (six) Branch hours as needed for Pain (scale 4-6) for up to 30 doses. traMADOL 50 2017-0 Yes 50mg Take 1 [facility] ers mg tablet 1-24 tablet by ity o f 00:00: mouth [place] 00 every 6 Medical (six) Branch hours as needed for Pain (scale 4-6) for up to 30 doses. traMADOL 50 2017-0 Yes 50mg Take 1 [facility] ers mg tablet 1-24 tablet by ity o f 00:00: mouth [place] 00 every 6 Medical (six) Branch hours as needed for Pain (scale 4-6) for up to 30 doses. traMADOL 50 2017-0 Yes 50mg Take 1 [facility] ers mg tablet 1-24 tablet by ity o f 00:00: mouth [place] 00 every 6 Medical (six) Branch hours as needed for Pain (scale 4-6) for up to 30 doses. traMADOL 50 2017-0 Yes 50mg Take 1 [facility] ers mg tablet 1-24 tablet by ity o f 00:00: mouth [place] 00 every 6 Medical (six) Branch hours as needed for Pain (scale 4-6) for up to 30 doses. fluconazole 2017-0 No 1mg 150 mg 1-11 tablet 00:00: 00 fluconazole 2017-0 No 1mg 150 mg 1-11 tablet 00:00: 00 amoxicillin 2015-1 No 1mg 875 2-20 mg-potassiu 00:00: m 00 clavulanate 125 mg tablet amoxicillin 2015- No 1mg 875 2-20 mg-potassiu 00:00: m 00 clavulanate 125 mg tablet metformin 2015- No 1mg 500 mg 2-15 tablet 00:00: 00 Bactrim DS 2015-1 No 1mg 800 mg-160 2-15 mg tablet 00:00: 00 levothyroxi 2015-1 No 1mcg ne 50 mcg 2-15 tablet 00:00: 00 metformin 2015-1 No 1mg 500 mg 2-15 tablet 00:00: 00 Bactrim DS 2015-1 No 1mg 800 mg-160 2-15 mg tablet 00:00: 00 levothyroxi 2015-1 No 1mcg ne 50 mcg 2-15 tablet 00:00: 00 metformin 2016-0 No 1mg 500 mg 8-12 tablet 00:00: 00 Bactrim DS 2016-0 No 1mg 800 mg-160 8-12 mg tablet 00:00: 00 cyclobenzap 2016-0 No 1mg rine 10 mg 8-12 tablet 00:00: 00 levothyroxi 2016-0 No 1mcg ne 50 mcg 8-12 tablet 00:00: 00 metformin 2016-0 No 1mg 500 mg 8-12 tablet 00:00: 00 Bactrim DS 2016-0 No 1mg 800 mg-160 8-12 mg tablet 00:00: 00 cyclobenzap 2016-0 No 1mg rine 10 mg 8-12 tablet 00:00: 00 levothyroxi 2016-0 No 1mcg ne 50 mcg 8-12 tablet 00:00: 00 ciprofloxac 2015-0 No 1% in 0.3 % 4-20 eye drops 00:00: 00 metformin 2016-0 No 1mg 500 mg 4-20 tablet 00:00: 00 levothyroxi 2015-0 No 1mcg ne 50 mcg 4-20 tablet 00:00: 00 amoxicillin 2016-0 No 1mg 500 mg 4-20 capsule 00:00: 00 ciprofloxac 2015-0 No 1% in 0.3 % 4-20 eye drops 00:00: 00 metformin 2015-0 No 1mg 500 mg 4-20 tablet 00:00: 00 levothyroxi 0 No 1mcg ne 50 mcg 4-20 tablet 00:00: 00 amoxicillin 2015-0 No 1mg 500 mg 4-20 capsule 00:00: 00 metformin 2014- No 1mg 500 mg 2-21 tablet 00:00: 00 metformin 2014- No 1mg 500 mg 2-21 tablet 00:00: 00 metformin 2014- No 1mg 500 mg 2-21 tablet 00:00: 00 metformin 2014-1 No 1mg 500 mg 2-21 tablet 00:00: 00 metoprolol 2014-05 No 1mg tartrate 25 2-17 mg tablet 00:00: 00 ibuprofen 2014- No 1mg 800 mg 2-17 tablet 00:00: 00 metoprolol 2014-05 No 1mg tartrate 25 2-17 mg tablet 00:00: 00 ibuprofen 2014-05 No 1mg 800 mg 2-17 tablet 00:00: 00 naproxen 2014-0 Yes 550mg Take 1 Tab Un [place] sodium 8-26 by mouth 2 ity of (ANAPROX) 00:00: (two) [place] 550 mg 00 times Medical tablet daily with Branch meals. cyclobenzap 2014-0 Yes 5mg Take 1 Tab [facility] rine 8-26 by mouth 3 ity of (FLEXERIL) 00:00: (three) [place] 5 mg tablet 00 times Medical daily. Branch naproxen 2014-0 Yes 550mg Take 1 Tab Un [place] sodium 8-26 by mouth 2 ity of (ANAPROX) 00:00: (two) [place] 550 mg 00 times Medical tablet daily with Branch meals. cyclobenzap 2015-0 Yes 5mg Take 1 Tab [facility] rine 8-26 by mouth 3 ity of (FLEXERIL) 00:00: (three) [place] 5 mg tablet 00 times Medical daily. Branch naproxen 2014-0 Yes 550mg Take 1 Tab Un [place] sodium 8-26 by mouth 2 ity of (ANAPROX) 00:00: (two) [place] 550 mg 00 times Medical tablet daily with Branch meals. cyclobenzap 2015-0 Yes 5mg Take 1 Tab [facility] rine 8-26 by mouth 3 ity of (FLEXERIL) 00:00: (three) [place] 5 mg tablet 00 times Medical daily. Branch naproxen 2015-0 Yes 550mg Take 1 Tab Un [place] sodium 8-26 by mouth 2 ity of (ANAPROX) 00:00: (two) [place] 550 mg 00 times Medical tablet daily with Branch meals. cyclobenzap 2015-0 Yes 5mg Take 1 Tab [facility] rine 8-26 by mouth 3 ity of (FLEXERIL) 00:00: (three) [place] 5 mg tablet 00 times Medical daily. Branch naproxen 2015-0 Yes 550mg Take 1 Tab Un [place] sodium 8-26 by mouth 2 ity of (ANAPROX) 00:00: (two) [place] 550 mg 00 times Medical tablet daily with Branch meals. cyclobenzap 2015-0 Yes 5mg Take 1 Tab [facility] rine 8-26 by mouth 3 ity of (FLEXERIL) 00:00: (three) [place] 5 mg tablet 00 times Medical daily. Branch naproxen 2015-0 Yes 550mg Take 1 Tab Un [place] sodium 8-26 by mouth 2 ity of (ANAPROX) 00:00: (two) [place] 550 mg 00 times Medical tablet daily with Branch meals. cyclobenzap 2015-0 Yes 5mg Take 1 Tab [facility] rine 8-26 by mouth 3 ity of (FLEXERIL) 00:00: (three) [place] 5 mg tablet 00 times Medical daily. Branch naproxen 2015-0 Yes 550mg Take 1 Tab Un [place] sodium 8-26 by mouth 2 ity of (ANAPROX) 00:00: (two) [place] 550 mg 00 times Medical tablet daily with Branch meals. cyclobenzap 2015-0 Yes 5mg Take 1 Tab [facility] rine 8-26 by mouth 3 ity of (FLEXERIL) 00:00: (three) [place] 5 mg tablet 00 times Medical daily. Branch naproxen 2015-0 Yes 550mg Take 1 Tab Un [place] sodium 8-26 by mouth 2 ity of (ANAPROX) 00:00: (two) [place] 550 mg 00 times Medical tablet daily with Branch meals. cyclobenzap 2015-0 Yes 5mg Take 1 Tab [facility] rine 8-26 by mouth 3 ity of (FLEXERIL) 00:00: (three) [place] 5 mg tablet 00 times Medical daily. Branch naproxen 2015-0 Yes 550mg Take 1 Tab Un [place] sodium 8-26 by mouth 2 ity of (ANAPROX) 00:00: (two) [place] 550 mg 00 times Medical tablet daily with Branch meals. cyclobenzap 2015-0 Yes 5mg Take 1 Tab [facility] rine 8-26 by mouth 3 ity of (FLEXERIL) 00:00: (three) [place] 5 mg tablet 00 times Medical daily. Branch naproxen 2015-0 Yes 550mg Take 1 Tab [facility] [place] sodium 8-26 by mouth 2 ity of (ANAPROX) 00:00: (two) [place] 550 mg 00 times Medical tablet daily with Branch meals. cyclobenzap 2015-0 Yes 5mg Take 1 Tab [facility] rine 8-26 by mouth 3 ity of (FLEXERIL) 00:00: (three) [place] 5 mg tablet 00 times Medical daily. Branch naproxen 2014-0 Yes 550mg Take 1 Tab Un [place] sodium 8-26 by mouth 2 ity of (ANAPROX) 00:00: (two) [place] 550 mg 00 times Medical tablet daily with Branch meals. cyclobenzap 2015-0 Yes 5mg Take 1 Tab [facility] rine 8-26 by mouth 3 ity of (FLEXERIL) 00:00: (three) [place] 5 mg tablet 00 times Medical daily. Branch Lexapro 10 2014-0 No 1mg mg tablet 3-26 00:00: 00 Lexapro 10 2014-0 No 1mg mg tablet 3-26 00:00: 00 gemfibrozil 2015-0 No 1mg 600 mg 3-26 tablet 00:00: 00 naproxen 2015-0 No 1mg 500 mg 3-26 tablet 00:00: 00 cyclobenzap 2015-0 No 1mg rine 10 mg 3-26 tablet 00:00: 00 cyclobenzap 2015-0 No 1mg rine 10 mg 3-26 tablet 00:00: 00 gemfibrozil 2015-0 No 1mg 600 mg 3-26 tablet 00:00: 00 naproxen 2015-0 No 1mg 500 mg 3-26 tablet 00:00: 00 cyclobenzap 2015-0 No 1mg rine 10 mg 3-26 tablet 00:00: 00 cyclobenzap 2014-0 No 1mg rine 10 mg 3-26 tablet 00:00: 00 estradiol Yes [id number] 2g Insert 2 g [facility] (ESTRACE) 5-30 into ity of 0.01 % (0.1 00:00: [place] mg/gram) 00 daily. Medical vaginal Branch cream estradiol Yes [id number] 2g Insert 2 g [facility] (ESTRACE) 5-30 into ity of 0.01 % (0.1 00:00: vagina [place] mg/gram) 00 daily. Medical vaginal Branch cream estradiol Yes [id number] 2g Insert 2 g [facility] (ESTRACE) 5-30 into ity of 0.01 % (0.1 00:00: vagina [place] mg/gram) 00 daily. Medical vaginal Branch cream estradiol Yes [id number] 2g Insert 2 g [facility] (ESTRACE) 5-30 into ity of 0.01 % (0.1 00:00: vagina [place] mg/gram) 00 daily. Medical vaginal Branch cream estradiol Yes [id number] 2g Insert 2 g [facility] (ESTRACE) 5-30 into ity of 0.01 % (0.1 00:00: vagina [place] mg/gram) 00 daily. Medical vaginal Branch cream estradiol Yes [id number] 2g Insert 2 g [facility] (ESTRACE) 5-30 into ity of 0.01 % (0.1 00:00: vagina [place] mg/gram) 00 daily. Medical vaginal Branch cream estradiol Yes [id number] 2g Insert 2 g [facility] (ESTRACE) 5-30 into ity of 0.01 % (0.1 00:00: vagina [place] mg/gram) 00 daily. Medical vaginal Branch cream estradiol Yes [id number] 2g Insert 2 g [facility] (ESTRACE) 5-30 into ity of 0.01 % (0.1 00:00: vagina [place] mg/gram) 00 daily. Medical vaginal Branch cream estradiol Yes [id number] 2g Insert 2 g [facility] (ESTRACE) 5-30 into ity of 0.01 % (0.1 00:00: vagina [place] mg/gram) 00 daily. Medical vaginal Branch cream estradiol Yes [id number] 2g Insert 2 g [facility] (ESTRACE) 5-30 into ity of 0.01 % (0.1 00:00: vagina [place] mg/gram) 00 daily. Medical vaginal Branch cream estradiol Yes [id number] 2g Insert 2 g [facility] (ESTRACE) 5-30 into ity of 0.01 % (0.1 00:00: vagina [place] mg/gram) 00 daily. Medical vaginal Branch cream Immunizations Ordered Immunization Filled Immunization Date Status Commen ts Source Name Name Tory STOKES 2020-12-19 Completed Vaccine 00:00:00 Tory LAWLERID-Ronald 2020-12-19 Completed Vaccine 00:00:00 [facility] LAWLERID-Ronald 2020-11-19 Completed Vaccine 00:00:00 Tory LAWLERID-Ronald 2020-11-19 Completed Vaccine 00:00:00 Vital Signs Vital Name Observation Time Observation Value Comments Source Systolic blood 2021-10-30 17:00:00 119 mm[Hg] [facility] Diastolic blood 2021-10-30 17:00:00 68 mm[Hg] [facility] Heart rate 2021-10-30 17:00:00 84 /min [facility] Body temperature 2021-10-30 17:00:00 36.78 [facility] [place] [facility] Respiratory rate 2021-10-30 17:00:00 16 /min [facility] Oxygen saturation in 2021-10-30 17:00:00 94 /min [facility] Arterial blood by [facility] Pulse oximetry [place] Body height 2021-10-30 04:46:00 13.7 cm [facility] Body weight 2021-10-30 04:46:00 65.772 kg [facility] BMI 2021-10-30 04:46:00 3496.10 kg/m2 [facility] Systolic blood 2021-10-19 13:57:00 111 mm[Hg] [facility] Diastolic blood 2021-10-19 13:57:00 59 mm[Hg] [facility] Heart rate 2021-10-19 13:57:00 111 /min [facility] Body temperature 2021-10-19 13:57:00 37 Vannessa [facility] [place] [facility] Respiratory rate 2021-10-19 13:57:00 18 /min [facility] [place] [facility] Body weight 2021-10-19 13:57:00 68.04 kg [facility] [place] [facility] BMI 2021-10-19 13:57:00 25.75 kg/m2 [facility] [place] [facility] Oxygen saturation in 2021-10-19 13:57:00 97 /min [facility] Arterial blood by [facility] unique Pulse oximetry Branch Systolic blood 2020-06-17 18:00:00 127 mm[Hg] [facility] [place] [facility] Diastolic blood 2020-06-17 18:00:00 83 mm[Hg] [facility] [place] [facility] Heart rate 2020-06-17 18:00:00 81 /min [facility] [place] [facility] Respiratory rate 2020-06-17 18:00:00 21 /min [facility] [place] [facility] Oxygen saturation in 2020-06-17 18:00:00 99 /min [facility] Arterial blood by [facility] unique Pulse oximetry Branch Body temperature 2020-06-17 15:27:00 37.06 Vannessa [facility] [place] [facility] Body weight 2020-06-17 15:27:00 68.04 kg [facility] [place] [facility] BMI 2020-06-17 15:27:00 25.75 kg/m2 [facility] [place] [facility] Systolic blood 2020-04-08 21:28:00 120 mm[Hg] [facility] [place] [facility] Diastolic blood 2020-04-08 21:28:00 59 mm[Hg] [facility] [place] [facility] Heart rate 2020-04-08 21:28:00 90 /min [facility] [place] [facility] Respiratory rate 2020-04-08 21:28:00 18 /min [facility] [place] [facility] Oxygen saturation in 2020-04-08 21:28:00 98 /min [facility] Arterial blood by [facility] Pulse oximetry Branch Body temperature 2020-04-08 21:18:00 36.33 Vannessa [facility] [place] [facility] Body height 2020-04-08 21:18:00 162.6 cm [facility] Body weight 2020-04-08 21:18:00 65.772 kg [facility] BMI 2020-04-08 21:18:00 24.89 kg/m2 [facility] BP Systolic 2022-02-02 13:45:00 105 mm[Hg] BP Diastolic 2022-02-02 13:45:00 72 mm[Hg] Weight Measured 2022-02-02 13:45:00 155.00 pounds Height Measured 2022-02-02 13:45:00 63.00 inches Body Temperature 2022-02-02 13:45:00 97.50 degrees Heart Rate 2022-02-02 13:45:00 87.00 /min Respiratory Rate 2022-02-02 13:45:00 21.00 /min BP Systolic 2021-12-02 13:32:00 119 mm[Hg] BP Diastolic 2021-12-02 13:32:00 74 mm[Hg] Weight Measured 2021-12-02 13:32:00 153.60 pounds Height Measured 2021-12-02 13:32:00 63.00 inches Body Temperature 2021-12-02 13:32:00 97.40 degrees Heart Rate 2021-12-02 13:32:00 74.00 /min Respiratory Rate 2021-12-02 13:32:00 BP Systolic 2021-11-09 10:09:00 123 mm[Hg] BP Diastolic 2021-11-09 10:09:00 79 mm[Hg] Weight Measured 2021-11-09 10:09:00 150.20 pounds Height Measured 2021-11-09 10:09:00 63.00 inches Body Temperature 2021-11-09 10:09:00 98.00 degrees Heart Rate 2021-11-09 10:09:00 83.00 /min Respiratory Rate 2021-11-09 10:09:00 16.00 /min BP Systolic 2021-09-06 10:37:00 108 mm[Hg] BP Diastolic 2021-09-06 10:37:00 66 mm[Hg] Weight Measured 2021-09-06 10:37:00 147.80 pounds Height Measured 2021-09-06 10:37:00 63.00 inches Body Temperature 2021-09-06 10:37:00 98.70 degrees Heart Rate 2021-09-06 10:37:00 86.00 /min Respiratory Rate 2021-09-06 10:37:00 BP Systolic 2021-07-16 16:45:00 111 mm[Hg] BP Diastolic 2021-07-16 16:45:00 69 mm[Hg] Weight Measured 2021-07-16 16:45:00 151.40 pounds Height Measured 2021-07-16 16:45:00 63.00 inches Body Temperature 2021-07-16 16:45:00 97.30 degrees Heart Rate 2021-07-16 16:45:00 78.00 /min Respiratory Rate 2021-07-16 16:45:00 Respiratory Rate 2021-01-14 16:06:00 BP Systolic 2021-01-14 16:06:00 96 mm[Hg] BP Diastolic 2021-01-14 16:06:00 60 mm[Hg] Weight Measured 2021-01-14 16:06:00 154.20 pounds Height Measured 2021-01-14 16:06:00 63.00 inches Body Temperature 2021-01-14 16:06:00 98.20 degrees Heart Rate 2021-01-14 16:06:00 79.00 /min BP Systolic 2020-12-16 17:10:00 135 mm[Hg] BP Diastolic 2020-12-16 17:10:00 70 mm[Hg] Weight Measured 2020-12-16 17:10:00 153.80 pounds Height Measured 2020-12-16 17:10:00 63.00 inches Body Temperature 2020-12-16 17:10:00 98.60 degrees Heart Rate 2020-12-16 17:10:00 75.00 /min Respiratory Rate 2020-12-16 17:10:00 BP Systolic 2020-08-24 17:09:00 100 mm[Hg] BP Diastolic 2020-08-24 17:09:00 64 mm[Hg] Weight Measured 2020-08-24 17:09:00 152.00 pounds Height Measured 2020-08-24 17:09:00 63.00 inches Body Temperature 2020-08-24 17:09:00 97.70 degrees Heart Rate 2020-08-24 17:09:00 75.00 /min Respiratory Rate 2020-08-24 17:09:00 16.00 /min BP Systolic 2019-12-23 10:31:00 93 mm[Hg] BP Diastolic 2019-12-23 10:31:00 65 mm[Hg] Weight Measured 2019-12-23 10:31:00 152.00 pounds Height Measured 2019-12-23 10:31:00 63.00 inches Body Temperature 2019-12-23 10:31:00 98.30 degrees Heart Rate 2019-12-23 10:31:00 80.00 /min Respiratory Rate 2019-12-23 10:31:00 17.00 /min BP Systolic 2019-09-24 16:34:00 107 mm[Hg] BP Diastolic 2019-09-24 16:34:00 69 mm[Hg] Weight Measured 2019-09-24 16:34:00 152.40 pounds Height Measured 2019-09-24 16:34:00 63.00 inches Body Temperature 2019-09-24 16:34:00 98.60 degrees Heart Rate 2019-09-24 16:34:00 80.00 /min Respiratory Rate 2019-09-24 16:34:00 BP Systolic 2019-09-09 15:41:00 105 mm[Hg] BP Diastolic 2019-09-09 15:41:00 69 mm[Hg] Weight Measured 2019-09-09 15:41:00 152.60 pounds Height Measured 2019-09-09 15:41:00 63.00 inches Body Temperature 2019-09-09 15:41:00 97.90 degrees Heart Rate 2019-09-09 15:41:00 88.00 /min Respiratory Rate 2019-09-09 15:41:00 16.00 /min Procedures Procedure Date / Time Performing Clinician Source Performed POCT GLUCOSE (AUTOMATED) 2021-10-30 [facility] 2021-10-30 13:17:00 Harvey Giles [facility] MAGNESIUM 2021-10-30 09:15:00 Moisés Pereira [facility] BASIC METABOLIC PANEL 2021-10-30 09:15:00 Moisés Pereira [facility] (NA, K, CL, CO2, GLUCOSE, Medica l Branch BUN, CREATININE, CA) CBC WITH DIFF 2021-10-30 09:15:00 Moisés Pereira [facility] BLOOD CULTURE SCREEN 2021-10-30 03:23:[address] [facility] CT CHEST PULMONARY 2021-10-30 01:05:53 Cass Woodruff [facility] ANGIOGRAM Medical Branch CBC WITH DIFF 2021-10-29 23:26:00 Cass Woodruff [facility] GLYCOSYLATED HEMOGLOBIN 2021-10-29 23:26:00 Moisés Pereira [facility] (A1C) [facility] LIPASE 2021-10-29 23:25:00 Cass Woodruff [facility] TROPONIN I 2021-10-29 23:25:00 Cass Woodruff [facility] COMP. METABOLIC PANEL 2021-10-29 23:25:00 Cass Woodruff [facility] ([id number]) [facility] PROTHROMBIN TIME / INR 2021-10-29 23:25:00 Moisés Pereira [facility] D-DIMER 2021-10-29 23:25:00 Cass Woodruff [facility] HEPATITIS B SURFACE 2021-10-29 23:25:00 Moisés Pereira [facility] ANTIBODY [facility] HEPATITIS B SURFACE 2021-10-29 23:25:00 Moisés Pereira [facility] ANTIGEN [facility] HCV ANTIBODY 2021-10-29 23:25:00 Moisés Pereira [facility] HBC ANTIBODY (IGM & IGG) 2021-10-29 23:25:00 Moisés Pereira [facility] N-TERMINAL PRO-BNP 2021-10-29 23:25:00 Cass Woodruff [facility] GALV ONLY - INFLUENZA A B 2021-10-29 22:33:00 Cass Woodruff [facility] RSV PCR [facility] COVID-19 (ID NOW RAPID 2021-10-29 22:33:00 [facility] Medical Branch LAB ONLY COVID 2021-10-29 22:33:00 Cass Woodruff [facility] INTERPRETATION Medical Branch XR CHEST 2 VW 2021-10-29 21:40:00 Cass Woodruff [facility] Medical Branch CONSENT/REFUSAL FOR 2021-10-29 21:28:46 Doctor Jovita [facility] DIAGNOSIS AND TREATMENT [place] [facility] RAPID STREP SCREEN FOR 2021-10-19 14:01:00 Hannah Dillard [facility] GROUP A Medical Branch RAPID INFLUENZA A/B 2021-10-19 14:01:00 Hannah Dillard [facility] COVID-19 (ID NOW RAPID 2021-10-19 14:01:00 Hannah Dillard [facility] TESTING) Medical Branch NOTICE OF PRIVACY 2021-10-19 13:54:26 Doctor Jovita, [facility] PRACTICES [place] [facility] CONSENT/REFUSAL FOR 2021-10-19 13:54:09 Doctor Jovita [facility] DIAGNOSIS AND TREATMENT [place] [facility] COMP. METABOLIC PANEL 2020-06-17 16:47:00 [facility] ([id number]) Medical Branch CBC WITH DIFF 2020-06-17 16:47:00 Hannah Dillard [facility] COVID-19 (ID NOW RAPID 2020-06-17 16:47:00 Hannah Dillard [facility] TESTING) Medical Branch XR CHEST 1 VW 2020-06-17 16:38:15 Hannah Dillard [facility] CONSENT/REFUSAL FOR 2020-06-17 15:14:17 Doctor Jovita [facility] DIAGNOSIS AND TREATMENT [place] [facility] [place] COMP. METABOLIC PANEL 2020-04-08 22:21:00 Brendan Yee [facility] ([id number]) Medical Branch CBC WITH DIFF 2020-04-08 22:21:00 Brendan Yee [facility] [place] URINALYSIS 2020-04-08 22:21:00 Brendan Yee [facility] [place] NOTICE OF PRIVACY 2020-04-08 21:12:29 Doctor Unassolinda, [facility] PRACTICES [place] [facility] CONSENT/REFUSAL FOR 2020-04-08 21:12:08 Doctor Unassigned, Alexi [facility] DIAGNOSIS AND TREATMENT [place] [facility] Plan of Care Planned Activity Planned Date Details Comments Source Goal Plan of Care Note [code = 16832-1] Goal Plan of Care Note [code = 89115-3] Goal Plan of Care Note [code = 33919-4] Goal Plan of Care Note [code = 12685-2] Goal Plan of Care Note [code = 70559-6] Goal Plan of Care Note [code = 89615-8] Goal Plan of Care Note [code = 44716-7] Goal Plan of Care Note [code = 76587-8] Goal Plan of Care Note [code = 11893-6] Goal Plan of Care Note [code = 39319-9] Goal Plan of Care Note [code = 08146-7] Goal Plan of Care Note [code = 70836-4] Goal Plan of Care Note [code = 49007-3] Goal Plan of Care Note [code = 10660-7] Goal Plan of Care Note [code = 99633-9] Goal Plan of Care Note [code = 71207-8] Goal Plan of Care Note [code = 44407-9] Goal Plan of Care Note [code = 35644-3] Goal Plan of Care Note [code = 26984-1] Goal Plan of Care Note [code = 99364-6] Goal Plan of Care Note [code = 64955-8] Goal Plan of Care Note [code = 69519-4] Goal Plan of Care Note [code = 15821-3] Goal Plan of Care Note [code = 98408-8] Goal Plan of Care Note [code = 79067-0] Goal Plan of Care Note [code = 27714-4] Goal Plan of Care Note [code = 36201-4] Goal Plan of Care Note [code = 63629-2] Goal Plan of Care Note [code = 06525-2] Goal Plan of Care Note [code = 30168-9] Goal Plan of Care Note [code = 78834-6] Goal Plan of Care Note [code = 68142-0] Goal Plan of Care Note [code = 12996-7] Goal Plan of Care Note [code = 47391-7] Goal Plan of Care Note [code = 87828-1] Goal Plan of Care Note [code = 59896-9] Goal Plan of Care Note [code = 62066-7] Goal Plan of Care Note [code = 35076-8] Goal Plan of Care Note [code = 72577-6] Goal Plan of Care Note [code = 53611-4] Goal Plan of Care Note [code = 20087-0] Goal Plan of Care Note [code = 82997-1] Goal Plan of Care Note [code = 37714-1] Goal Plan of Care Note [code = 06589-0] Goal Plan of Care Note [code = 35347-5] Goal Plan of Care Note [code = 20131-0] Goal Plan of Care Note [code = 29747-5] Goal Plan of Care Note [code = 88683-3] Goal Plan of Care Note [code = 10127-9] Goal Plan of Care Note [code = 94108-7] Goal Plan of Care Note [code = 72676-4] Goal Plan of Care Note [code = 32447-1] Goal Plan of Care Note [code = 80147-9] Goal Plan of Care Note [code = 16644-3] Goal Plan of Care Note [code = 04437-2] Goal Plan of Care Note [code = 20594-3] Goal Plan of Care Note [code = 05226-3] Goal Plan of Care Note [code = 81977-6] Goal Plan of Care Note [code = 18703-9] Goal Plan of Care Note [code = 60043-8] Goal Plan of Care Note [code = 17242-5] Goal Plan of Care Note [code = 68775-3] Goal Plan of Care Note [code = 13075-6] Goal Plan of Care Note [code = 21479-2] Goal Plan of Care Note [code = 26727-0] Goal Plan of Care Note [code = 31335-3] Goal Plan of Care Note [code = 28661-2] Goal Plan of Care Note [code = 96201-5] Goal Plan of Care Note [code = 97147-0] Goal Plan of Care Note [code = 42515-6] Goal Plan of Care Note [code = 86081-3] Goal Plan of Care Note [code = 77818-3] Goal Plan of Care Note [code = 27291-3] Goal Plan of Care Note [code = 32025-2] Goal Plan of Care Note [code = 99713-4] Goal Plan of Care Note [code = 01518-5] Goal Plan of Care Note [code = 40859-1] Goal Plan of Care Note [code = 66901-8] Goal Plan of Care Note [code = 32833-9] Goal Plan of Care Note [code = 45921-8] Goal Plan of Care Note [code = 85350-1] Goal Plan of Care Note [code = 36793-5] Goal Plan of Care Note [code = 04106-7] Encounters Start End Encounter Admission Attending Care Care Encounter Source Date/Time Date/Time Type Type Clinicians Facility Department ID 2021-03-13 Emergency [facility] [id number] Univers 21:29:15 [facility] 2021-03-13 Emergency [facility] [id number] Univers 07:51:29 [facility] 2022-02-08 2022-02-08 Patient Jenny Pitt 1.2.840.114 [id number] Univers 00:00:00 00:00:00 Outreach E [place] [id number] [id number] [address] 2022-02-07 2022-02-07 Patient CARLI Akbar 1.2.840.114 [id number] [facility] Univers 00:00:00 00:00:00 Outreach Quin E [place] [id number] [place] [id number] [address] 2022-02-02 2022-02-02 Outpatient [id number]- [id number]-y 00:00:00 00:00:00 Visit [id number] 221-4e5c-a -p1el-55i 0db-75d36f 25xh9a5h8 f0f2e4 2021-12-02 2021-12-02 Outpatient [id number] [id number] 00:00:00 00:00:00 Visit 1e2s-3y78 z6n-7t84-o -g421-4k6 [id number] [id number] 2021-11-10 2021-11-10 Patient Jenny Pitt 1.2.840.114 [id number] Univers 10:00:00 11:00:00 Outreach E [place] [id number] [place] [id number] [facility] [address] Branch 2021-11-03 2021-11-03 Patient Jenny Pitt 1.2.840.114 [id number] Univers 00:00:00 00:00:00 Outreach E [place] 350.1.13.10 [place] [id number] [address] Branch 2021-11-02 2021-11-02 Transition CARLI Chirinos 1.2.840.114 [id number] Univers 00:00:00 00:00:00 of Care Lana [place] [id number] [place] [id number] [address] 2021-11-01 2021-11-01 [facility] 1.2.840.114 [id number] Univers 00:00:00 00:00:00 Eduardo PRIMARY 350.1.13.10 it [place] [id number] Sc dical [address] 2021-10-29 2021-10-30 Outpatient X HARVEY GILES [facility] GINGER [id number] Univers 16:23:00 16:58:00 ity of [facility] 2021-10-29 2021-10-30 Emergency Sriram Nicole 1.2.840.1 [id number] Univers 16:23:00 16:58:00 Sheldon Weir 350.1.13.1 0 ity of [facility] 4.2.7.2.686 [place] [facility] Ricketts [id number] Medical Harvey Giles [address] [place] 2021-10-19 2021-10-19 Emergency X [facility] ERT [id number] Univers 09:01:00 10:00:00 HANNAH itshelia of [facility] 2021-10-19 2021-10-19 Emergency [facility] [id number] [id number] Univers 09:01:00 10:00:00 Hannah GOLDMAN 350.1.13.10 i ty of [place] 4.2.7.2.686 [facility] [id number] [address] 2020-06-17 2020-06-17 Emergency [facility] 1.2.056.941 [id number] Univers 09:28:00 12:52:00 Hannah Goldman 350.1.13.10 i ty of [place] 4.2.7.2.686 [facility] [id number] [address] 2020-06-17 2020-06-17 Orders Doctor KIKA 1.2.840.114 [id number] Univers 00:00:00 00:00:00 Only Unassigned, CHRISTIANO 350.1.13.10 ity of [place] [facility] 4.2.7.2.686 [place] [id number] [address] 2020-04-08 2020-04-08 Emergency [facility] 1.2.840.114 [id number] Univers 15:20:00 17:16:00 Brendan Goldman 350.1.13.10 ity of [place] 4.2.7.2.686 [facility] [id number] [address] Results Test Description Test Time Test Comments Results Result Comments Source TSH, THIRD GENERATION 2022-02-03 05:47:23 Test Item Value Reference Range Interpretation Comme nts TSH, THIRD GENERATION (test 2.060 UIU/ML 0.400-4.100 UNLESS OTHERWISE INDICATED, code = 2821) ALL TESTING PER FORMED ATCLINICAL PATH OLOGY LABORATORIES, I [place]. 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 [id number] HEMOGLOBIN [id number] 04:21:36 Test Item Value Reference Range Interpretation Comments HEMOGLOBIN A1c (test code = 25586) 6.1 % 4.2-5.6 H COMPREHENSIVE METABOLIC [id number] 03:10:01 Test Item Value Reference Range Interpretation Comments GLUCOSE (test code = 101 MG/DL 70-99 H 2216) BUN (test code = 15 MG/DL 6-20 2207) CREATININE (test 0.75 MG/DL 0.60-1.30 code = 2214) eGFR (2020 CKD-EPI) 92 ML/MIN/1.73 >60 (test code = 79975) CALC BUN/CREAT (test 20 RATIO 6-28 code = 2235) SODIUM (test code = 143 MEQ/L 624-670 7759) POTASSIUM (test code 3.8 MEQ/L 3.5-5.4 = 2227) CHLORIDE (test code 109 MEQ/L 95-107 H = 2214) CARBON DIOXIDE (test 22 MEQ/L 19-31 code = 2206) CALCIUM (test code = 10.1 MG/DL 8.5-10.5 2208) PROTEIN, TOTAL (test 8.2 G/DL 6.1-8.3 code = 222) ALBUMIN (test code = 4.6 G/DL 3.5-5.2 2200) CALC GLOBULIN (test 3.6 G/DL 1.9-3.7 code = 2240) CALC A/G RATIO (test 1.3 RATIO 1.0-2.6 code = 2234) BILIRUBIN, TOTAL 0.3 MG/DL See_Comment [Automated message] (test code = 220) The syste m which generated this result transmit omar reference range : <=1.2. The refe rence range was not u sed to interpret th is result as normal/abnormal . ALKALINE PHOSPHATASE 99 U/L 40-136 (test code = 2204) AST (test code = 37 U/L 9-40 2217) ALT (test code = 32 U/L 5-40 2218) LIPID [id number] 03:10:01 Test Item Value Reference Range Interpretation Comments CHOLESTEROL (test 271 MG/DL <200 H code = 2210) TRIGLYCERIDES (test 282 MG/DL <150 H code = 2232) HDL CHOLESTEROL (test 39 MG/DL >39 L code = 2220) CALC LDL CHOL (test 182 MG/DL <100 H NOTE: C ALCULATED LDL code = 2237) IS BASED ON TOI-YOUNG METHOD WHICHINCLUDES ADJUSTABLE TRIGLYCERIDE:VL DL CHOLESTEROL RAT IO.THIS FACTOR VARIES B Y MEASURED TRIGLY CERIDE AND NON-HDLCHOL ESTEROL CONCENTRATIONS WITH INCREASED CALCU LATED LDL SEENIN HIGH ER TRIGLYCERIDE OR LOWER NON-HDL SPECIME NS. FOR MOREINFORMATION , SEE CLIENT ANNOUNCE MENT AT [email or web address] RISK RATIO LDL/HDL 4.67 RATIO <3.22 H (test code = 2238) COMPREHENSIVE METABOLIC [id number] 00:00:00 Test Item Value Reference Range Interpretation Comments GLUCOSE (test code = 2217) 101 MG/DL BUN (test code = 2208) 15 MG/DL CREATININE (test code = 2214) 0.75 MG/DL eGFR (2020 CKD-EPI) (test code 92 ML/MIN/1.73 = 87249) CALC BUN/CREAT (test code = 20 RATIO 2235) SODIUM (test code = 2231) 143 MEQ/L POTASSIUM (test code = 2228) 3.8 MEQ/L CHLORIDE (test code = 2215) 109 MEQ/L CARBON DIOXIDE (test code = 22 MEQ/L 2205) CALCIUM (test code = 2209) 10.1 MG/DL PROTEIN, TOTAL (test code = 8.2 G/DL 2228) ALBUMIN (test code = 2201) 4.6 G/DL CALC GLOBULIN (test code = 3.6 G/DL 2240) CALC A/G RATIO (test code = 1.3 RATIO 4) BILIRUBIN, TOTAL (test code = 0.3 MG/DL 2206) ALKALINE PHOSPHATASE (test 99 U/L code = 2204) AST (test code = 2218) 37 U/L ALT (test code = 2219) 32 U/L COMPREHENSIVE METABOLIC [id number] 00:00:00 Test Item Value Reference Range Interpretation Comments GLUCOSE (test code = 2217) 101 MG/DL BUN (test code = 2208) 15 MG/DL CREATININE (test code = 2214) 0.75 MG/DL eGFR (2020 CKD-EPI) (test code 92 ML/MIN/1.73 = 22647) CALC BUN/CREAT (test code = 20 RATIO 2235) SODIUM (test code = 2231) 143 MEQ/L POTASSIUM (test code = 2228) 3.8 MEQ/L CHLORIDE (test code = 2215) 109 MEQ/L CARBON DIOXIDE (test code = 22 MEQ/L 2205) CALCIUM (test code = 2209) 10.1 MG/DL PROTEIN, TOTAL (test code = 8.2 G/DL 2228) ALBUMIN (test code = 2201) 4.6 G/DL CALC GLOBULIN (test code = 3.6 G/DL 2240) CALC A/G RATIO (test code = 1.3 RATIO 2234) BILIRUBIN, TOTAL (test code = 0.3 MG/DL 2206) ALKALINE PHOSPHATASE (test 99 U/L code = 2204) AST (test code = 2218) 37 U/L ALT (test code = 2219) 32 U/L LIPID [id number] 00:00:00 Test Item Value Reference Range Interpretation Comments CHOLESTEROL (test code = 2210) 271 MG/DL TRIGLYCERIDES (test code = 2232) 282 MG/DL HDL CHOLESTEROL (test code = 2220) 39 MG/DL CALC LDL CHOL (test code = 2237) 182 MG/DL RISK RATIO LDL/HDL (test code = 4.67 RATIO 2238) LIPID [id number] 00:00:00 Test Item Value Reference Range Interpretation Comments CHOLESTEROL (test code = 2210) 271 MG/DL TRIGLYCERIDES (test code = 2232) 282 MG/DL HDL CHOLESTEROL (test code = 2220) 39 MG/DL CALC LDL CHOL (test code = 2237) 182 MG/DL RISK RATIO LDL/HDL (test code = 4.67 RATIO 2238) HEMOGLOBIN [id number] 00:00:00 Test Item Value Reference Range Interpretation Comments HEMOGLOBIN A1c (test code = 61296) 6.1 % HEMOGLOBIN [id number] 00:00:00 Test Item Value Reference Range Interpretation Comments HEMOGLOBIN A1c (test code = 66989) 6.1 % HEMOGLOBIN [id number] 00:00:00 Test Item Value Reference Range Interpretation Comments HEMOGLOBIN A1c (test code = 10849) 6.1 % TSH, THIRD [id number] 00:00:00 Test Item Value Reference Range Interpretation Comments TSH, THIRD GENERATION (test code 2.060 UIU/ML = 2821) TSH, THIRD [id number] 00:00:00 Test Item Value Reference Range Interpretation Comments TSH, THIRD GENERATION (test code 2.060 UIU/ML = 2821) TSH, THIRD [id number] 00:00:00 Test Item Value Reference Range Interpretation Comments TSH, THIRD GENERATION (test code 2.060 UIU/ML = 2821) PROTHROMBIN TIME (PT)2021-11-10 02:18:41 Test Item Value Reference Range Interpretation Comments PROTHROMBIN TIME 16.6 SECONDS 12.5-14.7 H (PT) (test code = 1402) INR (test code = 1.3 SEE BELOW CURRENT 74104) RECOMMENDATIONS ARE FOR AN INR OF 2 .0-3.0 FOR ALL PATIENT S ON VITAMIN K ANTAG ONISTS, EXCEPT THOSE WI TH PROSTHETIC HEAR T VALVES, FOR WHO M INR OF 2.5-3.5 IS RECOMMENDED. [id number] 02:18:41 Test Item Value Reference Range Interpretation Comments PTT (test code = 35.6 SECONDS 25.2-40.0 UNLESS OTH ERWISE 1403) INDICATED, ALL TESTING PERFORMED ATCLI NICAL PATHOLOGY [email or web address], [employer]. [address] [place] [id number] [place] [address] DIRECTOR: SUMAN MORENO M.D. CLIA NUMBER [id number] CAP ACCREDITATION N O. [id number] PROTHROMBIN TIME (PT)2021-11-10 00:00:00 Test Item Value Reference Range Interpretation Comments PROTHROMBIN TIME (PT) (test code 16.6 SECONDS = 1402) INR (test code = 54310) 1.3 [id number] 00:00:00 Test Item Value Reference Range Interpretation Comments PTT (test code = 1403) 35.6 SECONDS [id number] 00:00:00 Test Item Value Reference Range Interpretation Comments PTT (test code = 1403) 35.6 SECONDS [id number] 00:00:00 Test Item Value Reference Range Interpretation Comments PTT (test code = 1403) 35.6 SECONDS PROTHROMBIN TIME (PT)2021-11-10 00:00:00 Test Item Value Reference Range Interpretation Comments PROTHROMBIN TIME (PT) (test code 16.6 SECONDS = 1402) INR (test code = 72241) 1.3 PROTHROMBIN TIME (PT)2021-11-10 00:00:00 Test Item Value Reference Range Interpretation Comments PROTHROMBIN TIME (PT) (test code 16.6 SECONDS = 1402) INR (test code = 03712) 1.3 [id number] 00:00:00 Test Item Value Reference Range Interpretation Comments PTT (test code = 1403) 35.6 SECONDS [id number] 00:00:00 Test Item Value Reference Range Interpretation Comments PTT (test code = 1403) 35.6 SECONDS [id number] 00:00:00 Test Item Value Reference Range Interpretation Comments PTT (test code = 1403) 35.6 SECONDS [id number] 00:00:00 Test Item Value Reference Range Interpretation Comments PTT (test code = 1403) 35.6 SECONDS POCT GLUCOSE (AUTOMATED)2021-10-30 17:12:43 Test Item Value Reference Range Interpretation Comments POCT GLU (test code = 0164533680) 241 mg/dL 70-110 H Lab Interpretation (test code = Abnormal 52683-0) [facility] 13:46:12 Test Item Value Reference Range Interpretation Comments POCT GLU (test code = 6246920425) 160 mg/dL 70-110 H Lab Interpretation (test code = Abnormal 15922-9) [facility] METABOLIC PANEL (NA, K, CL, CO2, GLUCOSE, BUN, CREATININE, CA)2021-10-30 10:11:16 Test Item Value Reference Range Interpretation Comments NA (test code = 140 mmol/L 135-145 [id number]) K (test code = 4.7 mmol/L 3.5-5.0 4717916308) CL (test code = 110 mmol/L 98-108 H [id number]) CO2 TOTAL (test code = 18 mmol/L 23-31 L 9138956009) AGAP (test code = 2-16 0798363620) BUN (test code = 18 mg/dL 7-23 2089153304) GLUCOSE (test code = 217 mg/dL 70-110 H 8461232047) CREATININE (test code = 0.72 mg/dL 0.50-1.04 4568361405) CALCIUM (test code = 9.1 mg/dL 8.6-10.6 6668185488) eGFR (test code = mL/min/1.73m2 8992988309) MARI (test code = MARI) Association of Glomerular Filtration Rate (GFR) and Staging of Kidney Disease* + --+ --+ ------+| GFR (mL/min/1.73 m2) ?| With Kidney Damage ?| ?Without Kidney Damage+ --------+ --------+ +| ?>90 ?| ?Stage one ?| ? Normal ?+ ---+ ---+ -------+| ?60-89 ?| ?Stage two ?| ? Decreased GFR ? + --+ --+ ------+| ?30-59 ?| ?Stage three ?| ? Stage three ? + --+ --+ ------+| ?15-29 ?| ?Stage four ? | ? Stage four ?+ ---+ ---+ -------+| ?<15 (or dialysis) ? ?| ?Stage five ? | ? Stage five ?+ ---+ ---+ -------+ *Each stage assumes the associated GFR level has been in effect for at least three months. ?Stages 1 to 5, with or without kidney disease, indicate chronic kidney disease. Notes: Determination of stages one and two (with eGFR >59mL/min/1.73 m2) requires estimation of kidney damage for at least three months as defined by structural or functional abnormalities of the kidney, manifested by either:Pathological abnormalities or Markers of kidney damage (including abnormalities in the composition of the blood or urine or abnormalities in imaging tests). Lab Interpretation Abnormal (test code = 20774-0) [facility]:11[facility]16 Test Item Value Reference Range Interpretation Comments MAGNESIUM (test code = 3943639295) 2.2 mg/dL 1.7-2.4 Lab Interpretation (test code = Normal 98670-5) [facility] WITH [id number] 09:27:31 Test Item Value Reference Range Interpretation Comments WBC (test code = See_Comment H [Automated 9790-2) message] The system which generated this result transmit omar reference range : 4.30 - 11.10 10*3/?L. The reference range was not used to interpret this result as normal/abnormal . RBC (test code = See_Comment L [Automated 989-8) message] The system which generated this result transmit omar reference range : 3.93 - 5.25 10*6/?L. The reference range was not used to interpret this result as normal/abnormal . HGB (test code = 11.9 g/dL 11.6-15.0 718-7) HCT (test code = 35.4 % 35.7-45.2 L 4544-3) MCV (test code = 94.7 fL 80.6-95.5 787-2) MCH (test code = 31.8 pg 25.9-32.8 785-6) MCHC (test code = 33.6 g/dL 31.6-35.1 786-4) RDW-SD (test code = 44.0 fL 39.0-49.9 94863-8) RDW-CV (test code = 12.8 % 12.0-15.5 788-0) PLT (test code = See_Comment H [Automated 777-3) message] The system which generated this result transmit omar reference range : 166 - 358 10*3/ ?L. The reference range was not u sed to interpret th is result as normal/abnormal . MPV (test code = 8.4 fL 9.5-12.9 L 25502-0) NRBC/100 WBC (test See_Comment [Automat ed code = 8624410450) message] The system which generated this result transmit omar reference range : 0.0 - 10.0 /100 WBCs. The reference range was not used to interpret this result as normal/abnormal . NRBC x10^3 (test code <0.01 See_Comment [Auto mated = 7411489370) message] The system which generated this result transmit omar reference range : 10*3/?L. The reference range was not used to interpret this result as normal/abnormal . GRAN MAT (NEUT) % 87.7 % (test code = 770-8) IMM GRAN % (test code 1.70 % = 4177392396) LYMPH % (test code = 9.7 % 736-9) MONO % (test code = 0.7 % 5905-5) EOS % (test code = 0.0 % 713-8) BASO % (test code = 0.2 % 706-2) GRAN MAT x10^3(ANC) 11.34 10*3/uL 1.88-7.09 H (test code = 0907034939) IMM GRAN x10^3 (test 0.22 10*3/uL 0.00-0.06 H code = 1410014791) LYMPH x10^3 (test code 1.25 10*3/uL 1.32-3.29 L = 731-0) MONO x10^3 (test code 0.09 10*3/uL 0.33-0.92 L = 742-7) EOS x10^3 (test code = <0.03 0.03-0.39 L 711-2) BASO x10^3 (test code <0.03 0.01-0.07 = 704-7) Lab Interpretation Abnormal (test code = 17708-0) [facility] & IGG)2021-10-30 06:09:14 Test Item Value Reference Range Interpretation Comments HBC (test code = 4754587047) Negative HBC Semi-Quantitative (test code = 2807816667) [facility] SURFACE [id number] 06:09:14 Test Item Value Reference Range Interpretation Comments HBsAB (test code = Positive 0631158383) HBsAb mIU/mL Semi-Quantitative (test code = 4202806498) MARI (test code = Interpretation: MARI) ?Hepatitis B Surface Antibody ? Negative - Patient is considered to be not immune to infection with HBV. ? ? Positive - Anti-HBs detected at greater than or equal to 12 mIU/mL. ?Patient is considered to be immune to infection with HBV. ? [facility] CenterHCV [id number] 06:09:14 Test Item Value Reference Range Interpretation Comments HCV Ab (test code = 69713-8) Negative HCV Semi-Quantitative (test code = 22496-9) [facility] CenterGLYCOSYLATED HEMOGLOBIN (A1C)2021-10-30 06:04:43 Test Item Value Reference Range Interpretation Comments HGB A1C (test code = 6.5 % 4.0-5.7 H 4548-4) MARI (test code = MARI) Reference RangesNormal: <5.7%Prediabetes: 5.7 - 6.4%Diabetes: > 6.5% Lab Interpretation (test Abnormal code = 80727-7) [facility] [id number] 05:50:47 Test Item Value Reference Range Interpretation Comments HBsAg Semi-Quantitative (test code = Negative Negative 5195-3) [facility] CenterProthrombin Time / [id number] 04:36:03 Test Item Value Reference Range Interpretation Comments PROTIME PATIENT (test See_Comment H [Auto mated message] code = 5964-2) The system wh ich generated this result transmitted ref erence range: 10.1 - 1 2.6 Seconds. The reference range was not used to int erpret this result as normal/abnormal . INR (test code = 6301-6) Nor mal INR <1.1; Warfarin Therap eutic range 2.0 to 3. 0 or 2.5 to 3.5, dep ending upon the indica tions. Lab Interpretation (test Abnormal code = 02511-4) [facility] WITH [id number] 00:59:06 Test Item Value Reference Range Interpretation Comments WBC (test code = See_Comment [Automated 6490-2) message] The sy stem which generated this result transmitted reference range : 4.30 - 11.10 10*3/?L. The reference range was not used to interpret this result as normal/abnormal . RBC (test code = See_Comment [Automated 929-8) message] The sy stem which generated this result transmitted reference range : 3.93 - 5.25 10*6/?L. The reference range was not used to interpret this result as normal/abnormal . HGB (test code = 13.1 g/dL 11.6-15.0 718-7) HCT (test code = 39.7 % 35.7-45.2 4544-3) MCV (test code = 97.8 fL 80.6-95.5 H 787-2) MCH (test code = 32.3 pg 25.9-32.8 785-6) MCHC (test code = 33.0 g/dL 31.6-35.1 786-4) RDW-SD (test code = 46.5 fL 39.0-49.9 38247-4) RDW-CV (test code = 12.9 % 12.0-15.5 788-0) PLT (test code = See_Comment H [Automated 777-3) message] The sy stem which generated this result transmitted reference range : 166 - 358 10*3/ ?L. The reference r teddy was not used to interpret this result as normal/abnormal . MPV (test code = 8.8 fL 9.5-12.9 L 78044-7) NRBC/100 WBC (test See_Comment [Automat ed code = 9331153754) message] The system which generated this result transmitted reference range : 0.0 - 10.0 /100 WBCs. The refer ence range was not u sed to interpret th is result as normal/abnormal . NRBC x10^3 (test code <0.01 See_Comment [Auto mated = 0551586795) message] The s ystem which generated this result transmitted reference range : 10*3/?L. The reference range was not used to interpret this result as normal/abnormal . GRAN MAT (NEUT) % 63.3 % (test code = 770-8) IMM GRAN % (test code 3.90 % = 5567230931) LYMPH % (test code = 21.5 % 736-9) MONO % (test code = 6.9 % 5905-5) EOS % (test code = 3.6 % 713-8) BASO % (test code = 0.8 % 706-2) GRAN MAT x10^3(ANC) 6.36 10*3/uL 1.88-7.09 (test code = 0790590833) IMM GRAN x10^3 (test 0.39 10*3/uL 0.00-0.06 H code = 7795777394) LYMPH x10^3 (test code 2.16 10*3/uL 1.32-3.29 = 731-0) MONO x10^3 (test code 0.69 10*3/uL 0.33-0.92 = 742-7) EOS x10^3 (test code = 0.36 10*3/uL 0.03-0.39 711-2) BASO x10^3 (test code 0.08 10*3/uL 0.01-0.07 H = 704-7) Lab Interpretation Abnormal (test code = 02185-3) [facility] CenterN-TERMINAL [id number] 00:39:20 Test Item Value Reference Range Interpretation Comments NT-proBNP (test code 52 pg/mL See_Comment [Autom ated = 2233228490) message] The system which generated this result transmitted reference range : <=125. The reference range was not used to interpret this result as normal/abnormal . MARI (test code = MARI) Biotin has been reported to cause a negative bias, interpret results relative to patient's use of biotin. Lab Interpretation Normal (test code = 54146-1) [facility] CenterTROPONIN [id number] 00:39:20 Test Item Value Reference Interpretation Comments Range TROPONIN I (test 0.002 ng/mL See_Comment [Automated code = 3588584181) message] The system which generated this result transmitted reference range : <=0.034. The reference range was not used to interpret this result as normal/abnormal . MARI (test code = Reference (Normal) MARI) Range (defined by the 99th percentile reference limit): <= 0.034 ng/mL Note: Cardiac troponin begins to rise 3-4 hours after the onset of ischemia. Repeat in 4-6 hours if the sample was drawn within 3-4 hours of the onset of the symptom and found normal. Diagnosis of myocardial injury is made with acute changes in cTn concentrations with at least one serial sample above the 99th percentile upper reference limit (URL), taken together with the patient's clinical presentation. Biotin has been reported to cause a negative bias, interpret results relative to patient's use of biotin. Lab Interpretation Normal (test code = 96983-0) [facility] CenterCOM. METABOLIC PANEL (50365)2021-10-30 00:21:59 Test Item Value Reference Range Interpretation Comments NA (test code = 143 mmol/L 135-145 3445410171) K (test code = 4.5 mmol/L 3.5-5.0 1301278611) CL (test code = 106 mmol/L 98-108 4372152056) CO2 TOTAL (test code = 25 mmol/L 23-31 2017553533) AGAP (test code = 2-16 9321320701) BUN (test code = 21 mg/dL 7-23 7805106613) GLUCOSE (test code = 118 mg/dL 70-110 H 1206684881) CREATININE (test code = 0.88 mg/dL 0.50-1.04 0338098176) TOTAL BILI (test code = 0.5 mg/dL 0.1-1.9 7594651816) CALCIUM (test code = 9.6 mg/dL 8.6-10.6 3171641140) T PROTEIN (test code = 8.8 g/dL 6.3-8.2 H 9949161419) ALBUMIN (test code = 4.2 g/dL 3.5-5.0 5019677734) ALK PHOS (test code = 173 U/L 34-122 H 1703274035) ALTv (test code = 40 U/L 5-35 H 1742-6) AST(SGOT) (test code = 40 U/L 13-40 7970925241) eGFR (test code = mL/min/1.73m2 9793704651) MARI (test code = MARI) Association of Glomerular Filtration Rate (GFR) and Staging of Kidney Disease* + --+ --+ ------+| GFR (mL/min/1.73 m2) ?| With Kidney Damage ?| ?Without Kidney Damage+ --------+ --------+ +| ?>90 ?| ?Stage one ?| ? Normal ?+ ---+ ---+ -------+| ?60-89 ?| ?Stage two ?| ? Decreased GFR ? + --+ --+ ------+| ?30-59 ?| ?Stage three ?| ? Stage three ? + --+ --+ ------+| ?15-29 ?| ?Stage four ? | ? Stage four ?+ ---+ ---+ -------+| ?<15 (or dialysis) ? ?| ?Stage five ? | ? Stage five ?+ ---+ ---+ -------+ *Each stage assumes the associated GFR level has been in effect for at least three months. ?Stages 1 to 5, with or without kidney disease, indicate chronic kidney disease. Notes: Determination of stages one and two (with eGFR >59mL/min/1.73 m2) requires estimation of kidney damage for at least three months as defined by structural or functional abnormalities of the kidney, manifested by either:Pathological abnormalities or Markers of kidney damage (including abnormalities in the composition of the blood or urine or abnormalities in imaging tests). Lab Interpretation Abnormal (test code = 42196-1) [facility] CenterLIPASE2022-[facility] 00:21:59 Test Item Value Reference Range Interpretation Comments LIPASE (test code = 0114286558) 404 U/L 0-220 H Lab Interpretation (test code = Abnormal 89705-8) [facility] CenterD-[id number] 23:59:55 Test Item Value Reference Interpretation Comments Range D-DIMER (test code = See_Comment H [Autom ated 4382343329) message] The system which generated this result transmitted reference range : <0.50 ?g/mL (FEU). The reference range was not used to interpret this result as normal/abnormal . MARI (test code = Results may be MARI) affected by the presence of LIPEMIA This test may be used in conjunction with a clinical pretest probability (PTP) assessment model to exclude venous thromboembolism (VTE) in patients suspected of deep venous thrombosis (DVT) and pulmonary embolism (PE) A D-Dimer value less than 0.50 ?g/ml (FEU) has a negative predicative value of 96 to 100% (95% CI)and 97 to 100% (95% CI) as an aid in the diagnosis of deep vein thrombosis (DVT) and pulmonary embolism when there is low or moderate pretest probability of PE or DVT. D-Dimer values are expressed in initial fibrinogen equivalent units (FEU)" The assay results should be used with other information, including the clinical context, in forming a diagnosis. Lab Interpretation Abnormal (test code = 62939-2) [facility] CenterLIPID [id number] 01:58:19 Test Item Value Reference Range Interpretation Comments CHOLESTEROL (test 188 MG/DL <200 code = 2210) TRIGLYCERIDES (test 165 MG/DL <150 H code = 2232) HDL CHOLESTEROL (test 40 MG/DL >39 code = 2220) CALC LDL CHOL (test 120 MG/DL <100 H NOTE: C ALCULATED LDL code = 2237) IS BASED ON TOI-YOUNG METHOD WHICHINCLUDES ADJUSTABLE TRIGLYCERIDE:VL DL CHOLESTEROL RAT IO.THIS FACTOR VARIES B Y MEASURED TRIGLY CERIDE AND NON-HDLCHOL ESTEROL CONCENTRATIONS WITH INCREASED CALCU LATED LDL SEENIN HIGH ER TRIGLYCERIDE OR LOWER NON-HDL SPECIME NS. FOR MOREINFORMATION , SEE CLIENT ANNOUNCE MENT AT [email or web address] RISK RATIO LDL/HDL 3.00 RATIO <3.22 UNLESS O THERWISE (test code = 2238) INDICATED , ALL TESTING PERFORMED [facility], [facility]. [address] [place] [address] [id number] [facility] DIRECTOR: SUMAN MORENO M.D. CLIA NUMBER [id number] CAP ACCREDITATION N O. [id number] LIPID [id number] 00:00:00 Test Item Value Reference Range Interpretation Comments CHOLESTEROL (test code = 2210) 188 MG/DL TRIGLYCERIDES (test code = 2232) 165 MG/DL HDL CHOLESTEROL (test code = 2220) 40 MG/DL CALC LDL CHOL (test code = 2237) 120 MG/DL RISK RATIO LDL/HDL (test code = 3.00 RATIO 2238) LIPID [id number] 00:00:00 Test Item Value Reference Range Interpretation Comments CHOLESTEROL (test code = 2210) 188 MG/DL TRIGLYCERIDES (test code = 2232) 165 MG/DL HDL CHOLESTEROL (test code = 2220) 40 MG/DL CALC LDL CHOL (test code = 2237) 120 MG/DL RISK RATIO LDL/HDL (test code = 3.00 RATIO 2238) LIPID [id number] 00:00:00 Test Item Value Reference Range Interpretation Comments CHOLESTEROL (test code = 2210) 188 MG/DL TRIGLYCERIDES (test code = 2232) 165 MG/DL HDL CHOLESTEROL (test code = 2220) 40 MG/DL CALC LDL CHOL (test code = 2237) 120 MG/DL RISK RATIO LDL/HDL (test code = 3.00 RATIO 2238) HEMOGLOBIN [id number] 10:24:14 Test Item Value Reference Range Interpretation Comments HEMOGLOBIN A1c (test code = 78569) 6.1 % 4.2-5.6 H FOLIC [id number] 06:34:55 Test Item Value Reference Range Interpretation Comments FOLIC ACID (test 11.3 UG/L SEE BELOW INTE RPRETIVE code = 2695) RANGES DE FICIENCY . . . . . . . . . . . . . . . UG/L <4.0 POS SIBLE DEFICIENCY. . . . . . . . . . . UG/L 4.0- 5.9 SUFFICIENT . . . . . . . . . . . . . . . UG/L >=6.0 VITAMIN [id number] 06:34:55 Test Item Value Reference Range Interpretation Comments VITAMIN B-12 (test 690 PG/ML 200-950 UNLESS O THERWISE code = 2840) INDICATED, ALL TESTING PERFORMED ATCL[facility] N[facility] PATHOLOG[facility]ITALV[facility], [employer]. [address] [place] [id number] [place] [address] DIRECTOR: Yesi CABANIA NUMBER [id number] CAP ACCREDITATION N O. [id number] VITAMIN D, 25 [id number] 06:05:31 Test Item Value Reference Range Interpretation Comments VITAMIN D, 25 OH 26 NG/ML SEE BELOW L NOTE: 25-H YDROXYVITAMIN D (test code = 4958) ASSAY INC LUDES 25-HYDROXYVITAM IN D2 AND D3. METHODOLOGY IS CHEMILUMINESCEN T IMMUNOASSAY. INTERPRETIVE RA NGES PEDIATRIC (<17 YEARS) . . . . . . . . . . . NG/ML 20-100ADULT: IN SUFFICIENT . . . . . . . . . . . . . . NG/ML <20 SUBO PTIMAL . . . . . . . . . . . . . . . NG/ML 20-29 OPT IMAL . . . . . . . . . . . . . . . . . NG/ML 30-100 CBC W/AUTO DIFF WITH [id number] 05:11:49 Test Item Value Reference Range Interpretation Comments WBC (test code = 7.9 K/UL 3.5-11.0 1001) RBC (test code = 4.25 M/UL 3.80-5.40 1002) HEMOGLOBIN (test code 13.6 G/DL 11.5-15.5 = 1003) HEMATOCRIT (test code 39.7 % 34.0-45.0 = 1004) MCV (test code = 93.4 fL 80.0-99.0 1005) MCH (test code = 32.0 PG 25.0-33.0 1006) MCHC (test code = 34.3 G/DL 31.0-36.0 1007) RDW (test code = 12.6 % 11.5-15.0 1038) NEUTROPHILS (test 54.8 % code = 1008) LYMPHOCYTES (test 32.7 % code = 1010) MONOCYTES (test code 8.1 % = 1011) EOSINOPHILS (test 3.3 % code = 1012) BASOPHILS (test code 0.8 % = 1013) IMMATURE GRANULOCYTES 0.3 % (test code = 1036) NUCLEATED RBCS (test 0.0 /100 WBC'S See_Comment [Aut omated code = 1065) message] The sy stem which generated this result transmitted reference range : 0.0. The refere nce range was not u sed to interpret th is result as normal/abnormal . PLATELET COUNT (test 291 K/UL 130-400 code = 1015) ABSOLUTE NEUTROPHILS 4.36 K/UL 1.50-7.50 (test code = 1066) ABSOLUTE LYMPHOCYTES 2.59 K/UL 1.00-4.00 (test code = 1067) ABSOLUTE MONOCYTES 0.64 K/UL 0.20-1.00 (test code = 1068) ABSOLUTE EOSINOPHILS 0.26 K/UL 0.00-0.50 (test code = 1040) ABSOLUTE BASOPHILS 0.06 K/UL 0.00-0.20 (test code = 1069) ABS IMMATURE 0.02 K/UL 0.00-0.10 GRANULOCYTES (test code = 1020) ABS NUCLEATED RBCS 0.00 K/UL 0.00-0.11 (test code = 65772) COMPREHENSIVE METABOLIC [id number] 04:34:34 Test Item Value Reference Range Interpretation Comments GLUCOSE (test code = 104 MG/DL 70-99 H 2216) BUN (test code = 19 MG/DL 11-01) CREATININE (test 0.67 MG/DL 0.60-1.30 code = 2214) eGFR (2020 CKD-EPI) 101 >60 (test code = 25393) ML/MIN/1.73 CALC BUN/CREAT (test 28 RATIO - code = 2235) SODIUM (test code = 139 MEQ/L 589-425 1372) POTASSIUM (test code 3.8 MEQ/L 3.5-5.4 = 2227) CHLORIDE (test code 102 MEQ/L 95-107 = 2214) CARBON DIOXIDE (test 24 MEQ/L 19-31 code = 2206) CALCIUM (test code = 9.8 MG/DL 8.5-10.5 2208) PROTEIN, TOTAL (test 8.0 G/DL 6.1-8.3 code = 2229) ALBUMIN (test code = 4.5 G/DL 3.5-5.2 2200) CALC GLOBULIN (test 3.5 G/DL 1.9-3.7 code = 2240) CALC A/G RATIO (test 1.3 RATIO 1.0-2.6 code = 2234) BILIRUBIN, TOTAL <0.2 MG/DL See_Comment [Automated message] (test code = 2206) The syste m which generated this result transmit omar reference range : <=1.2. The refe rence range was not u sed to interpret th is result as normal/abnormal . ALKALINE PHOSPHATASE 92 U/L 40-136 (test code = 2203) AST (test code = 23 U/L 9-40 2217) ALT (test code = 20 U/L 5-40 2218) CBC W/AUTO [id number] 00:00:00 Test Item Value Reference Range Interpretation Comments WBC (test code = 1001) 7.9 K/UL RBC (test code = 1002) 4.25 M/UL HEMOGLOBIN (test code = 1003) 13.6 G/DL HEMATOCRIT (test code = 1004) 39.7 % MCV (test code = 1005) 93.4 fL MCH (test code = 1006) 32.0 PG MCHC (test code = 1007) 34.3 G/DL RDW (test code = 1038) 12.6 % NEUTROPHILS (test code = 1008) 54.8 % LYMPHOCYTES (test code = 1010) 32.7 % MONOCYTES (test code = 1011) 8.1 % EOSINOPHILS (test code = 1012) 3.3 % BASOPHILS (test code = 1013) 0.8 % IMMATURE GRANULOCYTES (test 0.3 % code = 1036) NUCLEATED RBCS (test code = 0.0 /100WBC'S 1065) PLATELET COUNT (test code = 291 K/UL 1015) ABSOLUTE NEUTROPHILS (test code 4.36 K/UL = 1066) ABSOLUTE LYMPHOCYTES (test code 2.59 K/UL = 1067) ABSOLUTE MONOCYTES (test code = 0.64 K/UL 1068) ABSOLUTE EOSINOPHILS (test code 0.26 K/UL = 1040) ABSOLUTE BASOPHILS (test code = 0.06 K/UL 1069) ABS IMMATURE GRANULOCYTES (test 0.02 K/UL code = 1020) ABS NUCLEATED RBCS (test code = 0.00 K/UL 33586) CBC W/AUTO [id number] 00:00:00 Test Item Value Reference Range Interpretation Comments WBC (test code = 1001) 7.9 K/UL RBC (test code = 1002) 4.25 M/UL HEMOGLOBIN (test code = 1003) 13.6 G/DL HEMATOCRIT (test code = 1004) 39.7 % MCV (test code = 1005) 93.4 fL MCH (test code = 1006) 32.0 PG MCHC (test code = 1007) 34.3 G/DL RDW (test code = 1038) 12.6 % NEUTROPHILS (test code = 1008) 54.8 % LYMPHOCYTES (test code = 1010) 32.7 % MONOCYTES (test code = 1011) 8.1 % EOSINOPHILS (test code = 1012) 3.3 % BASOPHILS (test code = 1013) 0.8 % IMMATURE GRANULOCYTES (test 0.3 % code = 1036) NUCLEATED RBCS (test code = 0.0 /100WBC'S 1065) PLATELET COUNT (test code = 291 K/UL 1015) ABSOLUTE NEUTROPHILS (test code 4.36 K/UL = 1066) ABSOLUTE LYMPHOCYTES (test code 2.59 K/UL = 1067) ABSOLUTE MONOCYTES (test code = 0.64 K/UL 1068) ABSOLUTE EOSINOPHILS (test code 0.26 K/UL = 1040) ABSOLUTE BASOPHILS (test code = 0.06 K/UL 1069) ABS IMMATURE GRANULOCYTES (test 0.02 K/UL code = 1020) ABS NUCLEATED RBCS (test code = 0.00 K/UL 41483) HEMOGLOBIN [id number] 00:00:00 Test Item Value Reference Range Interpretation Comments HEMOGLOBIN A1c (test code = 26296) 6.1 % HEMOGLOBIN [id number] 00:00:00 Test Item Value Reference Range Interpretation Comments HEMOGLOBIN A1c (test code = 55525) 6.1 % COMPREHENSIVE METABOLIC [id number] 00:00:00 Test Item Value Reference Range Interpretation Comments GLUCOSE (test code = 2217) 104 MG/DL BUN (test code = 2208) 19 MG/DL CREATININE (test code = 2214) 0.67 MG/DL eGFR (2020 CKD-EPI) (test 101 ML/MIN/1.73 code = 94451) CALC BUN/CREAT (test code = 28 RATIO 2234) SODIUM (test code = 2231) 139 MEQ/L POTASSIUM (test code = 2228) 3.8 MEQ/L CHLORIDE (test code = 2215) 102 MEQ/L CARBON DIOXIDE (test code = 24 MEQ/L 2205) CALCIUM (test code = 220) 9.8 MG/DL PROTEIN, TOTAL (test code = 8.0 G/DL 2228) ALBUMIN (test code = 220) 4.5 G/DL CALC GLOBULIN (test code = 3.5 G/DL 2239) CALC A/G RATIO (test code = 1.3 RATIO 2233) BILIRUBIN, TOTAL (test code = <0.2 MG/DL 2206) ALKALINE PHOSPHATASE (test 92 U/L code = 220) AST (test code = 2218) 23 U/L ALT (test code = 221) 20 U/L VITAMIN D, 25 [id number] 00:00:00 Test Item Value Reference Range Interpretation Comments VITAMIN D, 25 OH (test code = 4958) 26 NG/ML FOLIC [id number] 00:00:00 Test Item Value Reference Range Interpretation Comments FOLIC ACID (test code = 2695) 11.3 UG/L VITAMIN [id number] 00:00:00 Test Item Value Reference Range Interpretation Comments VITAMIN B-12 (test code = 2840) 690 PG/ML VITAMIN [id number] 00:00:00 Test Item Value Reference Range Interpretation Comments VITAMIN B-12 (test code = 2840) 690 PG/ML CBC W/AUTO [id number] 00:00:00 Test Item Value Reference Range Interpretation Comments WBC (test code = 1001) 7.9 K/UL RBC (test code = 1002) 4.25 M/UL HEMOGLOBIN (test code = 1003) 13.6 G/DL HEMATOCRIT (test code = 1004) 39.7 % MCV (test code = 1005) 93.4 fL MCH (test code = 1006) 32.0 PG MCHC (test code = 1007) 34.3 G/DL RDW (test code = 1038) 12.6 % NEUTROPHILS (test code = 1008) 54.8 % LYMPHOCYTES (test code = 1010) 32.7 % MONOCYTES (test code = 1011) 8.1 % EOSINOPHILS (test code = 1012) 3.3 % BASOPHILS (test code = 1013) 0.8 % IMMATURE GRANULOCYTES (test 0.3 % code = 1036) NUCLEATED RBCS (test code = 0.0 /100WBC'S 1065) PLATELET COUNT (test code = 291 K/UL 1015) ABSOLUTE NEUTROPHILS (test code 4.36 K/UL = 1066) ABSOLUTE LYMPHOCYTES (test code 2.59 K/UL = 1067) ABSOLUTE MONOCYTES (test code = 0.64 K/UL 1068) ABSOLUTE EOSINOPHILS (test code 0.26 K/UL = 1040) ABSOLUTE BASOPHILS (test code = 0.06 K/UL 1069) ABS IMMATURE GRANULOCYTES (test 0.02 K/UL code = 1020) ABS NUCLEATED RBCS (test code = 0.00 K/UL [id number]) CBC W/AUTO [id number] 00:00:00 Test Item Value Reference Range Interpretation Comments WBC (test code = 1001) 7.9 K/UL RBC (test code = 1002) 4.25 M/UL HEMOGLOBIN (test code = 1003) 13.6 G/DL HEMATOCRIT (test code = 1004) 39.7 % MCV (test code = 1005) 93.4 fL MCH (test code = 1006) 32.0 PG MCHC (test code = 1007) 34.3 G/DL RDW (test code = 1038) 12.6 % NEUTROPHILS (test code = 1008) 54.8 % LYMPHOCYTES (test code = 1010) 32.7 % MONOCYTES (test code = 1011) 8.1 % EOSINOPHILS (test code = 1012) 3.3 % BASOPHILS (test code = 1013) 0.8 % IMMATURE GRANULOCYTES (test 0.3 % code = 1036) NUCLEATED RBCS (test code = 0.0 /100WBC'S 1065) PLATELET COUNT (test code = 291 K/UL 1015) ABSOLUTE NEUTROPHILS (test code 4.36 K/UL = 1066) ABSOLUTE LYMPHOCYTES (test code 2.59 K/UL = 1067) ABSOLUTE MONOCYTES (test code = 0.64 K/UL 1068) ABSOLUTE EOSINOPHILS (test code 0.26 K/UL = 1040) ABSOLUTE BASOPHILS (test code = 0.06 K/UL 1069) ABS IMMATURE GRANULOCYTES (test 0.02 K/UL code = 1020) ABS NUCLEATED RBCS (test code = 0.00 K/UL 55665) CBC W/AUTO [id number] 00:00:00 Test Item Value Reference Range Interpretation Comments WBC (test code = 1001) 7.9 K/UL RBC (test code = 1002) 4.25 M/UL HEMOGLOBIN (test code = 1003) 13.6 G/DL HEMATOCRIT (test code = 1004) 39.7 % MCV (test code = 1005) 93.4 fL MCH (test code = 1006) 32.0 PG MCHC (test code = 1007) 34.3 G/DL RDW (test code = 1038) 12.6 % NEUTROPHILS (test code = 1008) 54.8 % LYMPHOCYTES (test code = 1010) 32.7 % MONOCYTES (test code = 1011) 8.1 % EOSINOPHILS (test code = 1012) 3.3 % BASOPHILS (test code = 1013) 0.8 % IMMATURE GRANULOCYTES (test 0.3 % code = 1036) NUCLEATED RBCS (test code = 0.0 /100WBC'S 1065) PLATELET COUNT (test code = 291 K/UL 1015) ABSOLUTE NEUTROPHILS (test code 4.36 K/UL = 1066) ABSOLUTE LYMPHOCYTES (test code 2.59 K/UL = 1067) ABSOLUTE MONOCYTES (test code = 0.64 K/UL 1068) ABSOLUTE EOSINOPHILS (test code 0.26 K/UL = 1040) ABSOLUTE BASOPHILS (test code = 0.06 K/UL 1069) ABS IMMATURE GRANULOCYTES (test 0.02 K/UL code = 1020) ABS NUCLEATED RBCS (test code = 0.00 K/UL 32233) HEMOGLOBIN [id number] 00:00:00 Test Item Value Reference Range Interpretation Comments HEMOGLOBIN A1c (test code = 33179) 6.1 % HEMOGLOBIN [id number] 00:00:00 Test Item Value Reference Range Interpretation Comments HEMOGLOBIN A1c (test code = 78008) 6.1 % HEMOGLOBIN [id number] 00:00:00 Test Item Value Reference Range Interpretation Comments HEMOGLOBIN A1c (test code = 49118) 6.1 % COMPREHENSIVE METABOLIC [id number] 00:00:00 Test Item Value Reference Range Interpretation Comments GLUCOSE (test code = 2217) 104 MG/DL BUN (test code = 2208) 19 MG/DL CREATININE (test code = 2214) 0.67 MG/DL eGFR (2020 CKD-EPI) (test 101 ML/MIN/1.73 code = 66644) CALC BUN/CREAT (test code = 28 RATIO 2235) SODIUM (test code = 2231) 139 MEQ/L POTASSIUM (test code = 2228) 3.8 MEQ/L CHLORIDE (test code = 2215) 102 MEQ/L CARBON DIOXIDE (test code = 24 MEQ/L 220) CALCIUM (test code = 2209) 9.8 MG/DL PROTEIN, TOTAL (test code = 8.0 G/DL 2228) ALBUMIN (test code = 2201) 4.5 G/DL CALC GLOBULIN (test code = 3.5 G/DL 2240) CALC A/G RATIO (test code = 1.3 RATIO 2234) BILIRUBIN, TOTAL (test code = <0.2 MG/DL 2206) ALKALINE PHOSPHATASE (test 92 U/L code = 2204) AST (test code = 2218) 23 U/L ALT (test code = 2219) 20 U/L COMPREHENSIVE METABOLIC [id number] 00:00:00 Test Item Value Reference Range Interpretation Comments GLUCOSE (test code = 2217) 104 MG/DL BUN (test code = 2208) 19 MG/DL CREATININE (test code = 2214) 0.67 MG/DL eGFR (2020 CKD-EPI) (test 101 ML/MIN/1.73 code = 31987) CALC BUN/CREAT (test code = 28 RATIO 2235) SODIUM (test code = 2231) 139 MEQ/L POTASSIUM (test code = 2228) 3.8 MEQ/L CHLORIDE (test code = 2215) 102 MEQ/L CARBON DIOXIDE (test code = 24 MEQ/L 220) CALCIUM (test code = 2209) 9.8 MG/DL PROTEIN, TOTAL (test code = 8.0 G/DL 2228) ALBUMIN (test code = 2201) 4.5 G/DL CALC GLOBULIN (test code = 3.5 G/DL 2240) CALC A/G RATIO (test code = 1.3 RATIO 2234) BILIRUBIN, TOTAL (test code = <0.2 MG/DL 2206) ALKALINE PHOSPHATASE (test 92 U/L code = 2204) AST (test code = 2218) 23 U/L ALT (test code = 2219) 20 U/L VITAMIN D, 25 [id number] 00:00:00 Test Item Value Reference Range Interpretation Comments VITAMIN D, 25 OH (test code = 4958) 26 NG/ML VITAMIN D, 25 [id number] 00:00:00 Test Item Value Reference Range Interpretation Comments VITAMIN D, 25 OH (test code = 4958) 26 NG/ML FOLIC [id number] 00:00:00 Test Item Value Reference Range Interpretation Comments FOLIC ACID (test code = 2695) 11.3 UG/L FOLIC [id number] 00:00:00 Test Item Value Reference Range Interpretation Comments FOLIC ACID (test code = 2695) 11.3 UG/L VITAMIN [id number] 00:00:00 Test Item Value Reference Range Interpretation Comments VITAMIN B-12 (test code = 2840) 690 PG/ML VITAMIN [id number] 00:00:00 Test Item Value Reference Range Interpretation Comments VITAMIN B-12 (test code = 2840) 690 PG/ML VITAMIN [id number] 00:00:00 Test Item Value Reference Range Interpretation Comments VITAMIN B-12 (test code = 2840) 690 PG/ML HEMOGLOBIN [id number] 00:00:00 Test Item Value Reference Range Interpretation Comments HEMOGLOBIN A1c (test code = 60108) 5.9 % HEMOGLOBIN [id number] 00:00:00 Test Item Value Reference Range Interpretation Comments HEMOGLOBIN A1c (test code = 67647) 5.9 % CBC W/AUTO [id number] 00:00:00 Test Item Value Reference Range Interpretation Comments WBC (test code = 1001) 7.7 K/UL RBC (test code = 1002) 4.09 M/UL HEMOGLOBIN (test code = 1003) 13.1 G/DL HEMATOCRIT (test code = 1004) 38.6 % MCV (test code = 1005) 94.4 fL MCH (test code = 1006) 32.0 PG MCHC (test code = 1007) 33.9 G/DL RDW (test code = 1038) 12.7 % NEUTROPHILS (test code = 1008) 56.5 % LYMPHOCYTES (test code = 1010) 29.2 % MONOCYTES (test code = 1011) 9.1 % EOSINOPHILS (test code = 1012) 4.4 % BASOPHILS (test code = 1013) 0.8 % PLATELET COUNT (test code = 1015) 295 K/UL CBC W/AUTO [id number] 00:00:00 Test Item Value Reference Range Interpretation Comments WBC (test code = 1001) 7.7 K/UL RBC (test code = 1002) 4.09 M/UL HEMOGLOBIN (test code = 1003) 13.1 G/DL HEMATOCRIT (test code = 1004) 38.6 % MCV (test code = 1005) 94.4 fL MCH (test code = 1006) 32.0 PG MCHC (test code = 1007) 33.9 G/DL RDW (test code = 1038) 12.7 % NEUTROPHILS (test code = 1008) 56.5 % LYMPHOCYTES (test code = 1010) 29.2 % MONOCYTES (test code = 1011) 9.1 % EOSINOPHILS (test code = 1012) 4.4 % BASOPHILS (test code = 1013) 0.8 % PLATELET COUNT (test code = 1015) 295 K/UL COMPREHENSIVE METABOLIC [id number] 00:00:00 Test Item Value Reference Range Interpretation Comments GLUCOSE (test code = 2217) 101 MG/DL BUN (test code = 2208) 21 MG/DL CREATININE (test code = 2214) 0.83 MG/DL eGFR AMER. (test code 91 ML/MIN/1.73 = 71081) eGFR NON- AMER. (test 78 ML/MIN/1.73 code = 73417) CALC BUN/CREAT (test code = 25 RATIO 2235) SODIUM (test code = 2231) 141 MEQ/L POTASSIUM (test code = 2228) 4.1 MEQ/L CHLORIDE (test code = 2215) 105 MEQ/L CARBON DIOXIDE (test code = 24 MEQ/L 2205) CALCIUM (test code = 2209) 9.5 MG/DL PROTEIN, TOTAL (test code = 8.4 G/DL 2228) ALBUMIN (test code = 2201) 4.6 G/DL CALC GLOBULIN (test code = 3.8 G/DL 224) CALC A/G RATIO (test code = 1.2 RATIO 2234) BILIRUBIN, TOTAL (test code = <0.2 MG/DL 2206) ALKALINE PHOSPHATASE (test 85 U/L code = 2204) AST (test code = 2218) 27 U/L ALT (test code = 2219) 21 U/L LIPID [id number] 00:00:00 Test Item Value Reference Range Interpretation Comments CHOLESTEROL (test code = 2210) 262 MG/DL TRIGLYCERIDES (test code = 2232) 543 MG/DL HDL CHOLESTEROL (test code = 31 MG/DL 2220) CALC LDL CHOL (test code = 2237) (NOTE) MG/DL RISK RATIO LDL/HDL (test code = (NOTE) RATIO 2238) [id number] 00:00:00 Test Item Value Reference Range Interpretation Comments TSH, THIRD GENERATION (test code 9.990 UIU/ML = 2821) [id number] 00:00:00 Test Item Value Reference Range Interpretation Comments TSH, THIRD GENERATION (test code 9.990 UIU/ML = 2821) MICROALBUMIN/CREATININE, RANDOM AND [id number] 00:00:00 Test Item Value Reference Range Interpretation Comments CREATININE, URINE, CONC. (test 92.9 MG/DL code = 2072) ALBUMIN, URINE, RANDOM (test code 0.3 MG/DL = 22427) CALC ALBUMIN/CREAT, RND (test code 3 MG/G = 03328) HEMOGLOBIN [id number] 00:00:00 Test Item Value Reference Range Interpretation Comments HEMOGLOBIN A1c (test code = 85609) 5.9 % HEMOGLOBIN [id number] 00:00:00 Test Item Value Reference Range Interpretation Comments HEMOGLOBIN A1c (test code = 44546) 5.9 % HEMOGLOBIN [id number] 00:00:00 Test Item Value Reference Range Interpretation Comments HEMOGLOBIN A1c (test code = 53133) 5.9 % CBC W/AUTO [id number] 00:00:00 Test Item Value Reference Range Interpretation Comments WBC (test code = 1001) 7.7 K/UL RBC (test code = 1002) 4.09 M/UL HEMOGLOBIN (test code = 1003) 13.1 G/DL HEMATOCRIT (test code = 1004) 38.6 % MCV (test code = 1005) 94.4 fL MCH (test code = 1006) 32.0 PG MCHC (test code = 1007) 33.9 G/DL RDW (test code = 1038) 12.7 % NEUTROPHILS (test code = 1008) 56.5 % LYMPHOCYTES (test code = 1010) 29.2 % MONOCYTES (test code = 1011) 9.1 % EOSINOPHILS (test code = 1012) 4.4 % BASOPHILS (test code = 1013) 0.8 % PLATELET COUNT (test code = 1015) 295 K/UL CBC W/AUTO [id number] 00:00:00 Test Item Value Reference Range Interpretation Comments WBC (test code = 1001) 7.7 K/UL RBC (test code = 1002) 4.09 M/UL HEMOGLOBIN (test code = 1003) 13.1 G/DL HEMATOCRIT (test code = 1004) 38.6 % MCV (test code = 1005) 94.4 fL MCH (test code = 1006) 32.0 PG MCHC (test code = 1007) 33.9 G/DL RDW (test code = 1038) 12.7 % NEUTROPHILS (test code = 1008) 56.5 % LYMPHOCYTES (test code = 1010) 29.2 % MONOCYTES (test code = 1011) 9.1 % EOSINOPHILS (test code = 1012) 4.4 % BASOPHILS (test code = 1013) 0.8 % PLATELET COUNT (test code = 1015) 295 K/UL CBC W/AUTO [id number] 00:00:00 Test Item Value Reference Range Interpretation Comments WBC (test code = 1001) 7.7 K/UL RBC (test code = 1002) 4.09 M/UL HEMOGLOBIN (test code = 1003) 13.1 G/DL HEMATOCRIT (test code = 1004) 38.6 % MCV (test code = 1005) 94.4 fL MCH (test code = 1006) 32.0 PG MCHC (test code = 1007) 33.9 G/DL RDW (test code = 1038) 12.7 % NEUTROPHILS (test code = 1008) 56.5 % LYMPHOCYTES (test code = 1010) 29.2 % MONOCYTES (test code = 1011) 9.1 % EOSINOPHILS (test code = 1012) 4.4 % BASOPHILS (test code = 1013) 0.8 % PLATELET COUNT (test code = 1015) 295 K/UL COMPREHENSIVE METABOLIC [id number] 00:00:00 Test Item Value Reference Range Interpretation Comments GLUCOSE (test code = 2217) 101 MG/DL BUN (test code = 2208) 21 MG/DL CREATININE (test code = 2214) 0.83 MG/DL eGFR AMER. (test code 91 ML/MIN/1.73 = 75847) eGFR NON- AMER. (test 78 ML/MIN/1.73 code = 20118) CALC BUN/CREAT (test code = 25 RATIO 2235) SODIUM (test code = 2231) 141 MEQ/L POTASSIUM (test code = 2228) 4.1 MEQ/L CHLORIDE (test code = 2215) 105 MEQ/L CARBON DIOXIDE (test code = 24 MEQ/L 2205) CALCIUM (test code = 2209) 9.5 MG/DL PROTEIN, TOTAL (test code = 8.4 G/DL 2228) ALBUMIN (test code = 2201) 4.6 G/DL CALC GLOBULIN (test code = 3.8 G/DL 2239) CALC A/G RATIO (test code = 1.2 RATIO 2234) BILIRUBIN, TOTAL (test code = <0.2 MG/DL 2206) ALKALINE PHOSPHATASE (test 85 U/L code = 2204) AST (test code = 2218) 27 U/L ALT (test code = 2219) 21 U/L COMPREHENSIVE METABOLIC [id number] 00:00:00 Test Item Value Reference Range Interpretation Comments GLUCOSE (test code = 2217) 101 MG/DL BUN (test code = 2208) 21 MG/DL CREATININE (test code = 2214) 0.83 MG/DL eGFR AMER. (test code 91 ML/MIN/1.73 = 95491) eGFR NON- AMER. (test 78 ML/MIN/1.73 code = 35539) CALC BUN/CREAT (test code = 25 RATIO 2235) SODIUM (test code = 2231) 141 MEQ/L POTASSIUM (test code = 2228) 4.1 MEQ/L CHLORIDE (test code = 2215) 105 MEQ/L CARBON DIOXIDE (test code = 24 MEQ/L 220) CALCIUM (test code = 2209) 9.5 MG/DL PROTEIN, TOTAL (test code = 8.4 G/DL 2228) ALBUMIN (test code = 2201) 4.6 G/DL CALC GLOBULIN (test code = 3.8 G/DL 2240) CALC A/G RATIO (test code = 1.2 RATIO 2234) BILIRUBIN, TOTAL (test code = <0.2 MG/DL 2206) ALKALINE PHOSPHATASE (test 85 U/L code = 2204) AST (test code = 2218) 27 U/L ALT (test code = 2219) 21 U/L LIPID [id number] 00:00:00 Test Item Value Reference Range Interpretation Comments CHOLESTEROL (test code = 2210) 262 MG/DL TRIGLYCERIDES (test code = 2232) 543 MG/DL HDL CHOLESTEROL (test code = 31 MG/DL 2220) CALC LDL CHOL (test code = 2237) (NOTE) MG/DL RISK RATIO LDL/HDL (test code = (NOTE) RATIO 2238) LIPID [id number] 00:00:00 Test Item Value Reference Range Interpretation Comments CHOLESTEROL (test code = 2210) 262 MG/DL TRIGLYCERIDES (test code = 2232) 543 MG/DL HDL CHOLESTEROL (test code = 31 MG/DL 2220) CALC LDL CHOL (test code = 2237) (NOTE) MG/DL RISK RATIO LDL/HDL (test code = (NOTE) RATIO 2238) [id number] 00:00:00 Test Item Value Reference Range Interpretation Comments TSH, THIRD GENERATION (test code 9.990 UIU/ML = 2821) [id number] 00:00:00 Test Item Value Reference Range Interpretation Comments TSH, THIRD GENERATION (test code 9.990 UIU/ML = 2821) [id number] 00:00:00 Test Item Value Reference Range Interpretation Comments TSH, THIRD GENERATION (test code 9.990 UIU/ML = 2821) MICROALBUMIN/CREATININE, RANDOM AND [id number] 00:00:00 Test Item Value Reference Range Interpretation Comments CREATININE, URINE, CONC. (test 92.9 MG/DL code = 2072) ALBUMIN, URINE, RANDOM (test code 0.3 MG/DL = 99833) CALC ALBUMIN/CREAT, RND (test code 3 MG/G = 07062) MICROALBUMIN/CREATININE, RANDOM AND [id number] 00:00:00 Test Item Value Reference Range Interpretation Comments CREATININE, URINE, CONC. 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 It is used under Emergency Use Authorization (EUA) by FDA. The limit of detection (LOD) of the assay is 125 Genome Equivalents/mL. A positive result is indicative of the presence of SARS-CoV-2 RNA. ?Clinical correlation with patient history and other diagnostic information is necessary to determine patient infection status. A negative (Not Detected) result does not preclude SARS-CoV-2 infection. In patients with clinical symptoms and other tests that are consistent with SARS-CoV-2 infection, negative results should be treated as presumptive negative and a new specimen should be tested with alternative PCR molecular test. Invalid: Please collect a new specimen for repeat patient testing if clinically indicated. Lab Interpretation Normal (test code = 38981-8) [facility]. METABOLIC PANEL ([id number])2020-06-17 17:12:00 Test Item Value Reference Range Interpretation Comments NA (test code = 143 mmol/L 135-145 2828235703) K (test code = 4.1 mmol/L 3.5-5 7630234169) CL (test code = 104 mmol/L 98-108 7112629924) CO2 TOTAL (test code = 28 mmol/L 23-31 5764589474) AGAP (test code = 2-16 9789851413) BUN (test code = 14 mg/dL 7-23 1533962573) GLUCOSE (test code = 99 mg/dL 70-110 4550214791) CREATININE (test code = 0.65 mg/dL 0.5-1.04 2264613086) TOTAL BILI (test code = 0.6 mg/dL 0.1-1.8 6439679001) CALCIUM (test code = 9.9 mg/dL 8.6-10.6 9815772147) T PROTEIN (test code = 9.0 g/dL 6.3-8.2 H 6964952075) ALBUMIN (test code = 4.8 g/dL 3.5-5 4037937019) ALK PHOS (test code = 110 U/L 34-122 4165091274) ALTv (test code = 28 U/L 5-35 1742-6) AST(SGOT) (test code = 38 U/L 13-40 2266082760) eGFR Calculation mL/min/1.73m2 (Non-) (test code = 6061807498) eGFR Calculation mL/min/1.73m2 () (test code = 6998737196) MARI (test code = MARI) Association of Glomerular Filtration Rate (GFR) and Staging of Kidney Disease* + --+ --+ ------+| GFR (mL/min/1.73 m2) ?| With Kidney Damage ?| ?Without Kidney Damage+ --------+ --------+ +| ?>90 ?| ?Stage one ?| ? Normal ?+ ---+ ---+ -------+| ?60-89 ?| ?Stage two ?| ? Decreased GFR ? + --+ --+ ------+| ?30-59 ?| ?Stage three ?| ? Stage three ? + --+ --+ ------+| ?15-29 ?| ?Stage four ? | ? Stage four ?+ ---+ ---+ -------+| ?<15 (or dialysis) ? ?| ?Stage five ? | ? Stage five ?+ ---+ ---+ -------+ *Each stage assumes the associated GFR level has been in effect for at least three months. ?Stages 1 to 5, with or without kidney disease, indicate chronic kidney disease. Notes: Determination of stages one and two (with eGFR >59mL/min/1.73 m2) requires estimation of kidney damage for at least three months as defined by structural or functional abnormalities of the kidney, manifested by either:Pathological abnormalities or Markers of kidney damage (including abnormalities in the composition of the blood or urine or abnormalities in imaging tests). Lab Interpretation Abnormal (test code = 17829-0) [facility] WITH [id number] 17:02:00 Test Item Value Reference Range Interpretation Comments WBC (test code = See_Comment [Automated message] 6690-2) The system [employer] generated this result transmitted ref erence range: 4.30 - 1 1.10 10*3/?L. The re ference range was not u sed to interpret this result as normal/abnor mal. RBC (test code = See_Comment [Automated message] 869-8) The system [employer] generated this result transmitted ref erence range: 3.93 - 5 .25 10*6/?L. The re ference range was not u sed to interpret this result as normal/abnor mal. HGB (test code = 13.9 g/dL 11.6-15 718-7) HCT (test code = 41.5 % 35.7-45.2 4544-3) MCV (test code = 93.5 fL 80.6-95.5 787-2) MCH (test code = 31.3 pg 25.9-32.8 785-6) MCHC (test code = 33.5 g/dL 31.6-35.1 786-4) RDW-SD (test code 41.8 fL 39-49.9 = 49755-8) RDW-CV (test code 12.1 % 12-15.5 = 788-0) PLT (test code = See_Comment [Automated message] 777-3) The system [employer] generated this result transmitted ref erence range: 166 - 35 8 10*3/?L. The re ference range was not u sed to interpret this result as normal/abnor mal. MPV (test code = 10.1 fL 9.5-12.9 37970-7) NRBC/100 WBC (test See_Comment [Automat ed message] code = 3687721592) The syste [employer] which generated this result transmitted ref erence range: 0.0 - 10 .0 /100 WBCs. The refer ence range was not u sed to interpret this result as normal/abnor mal. NRBC x10^3 (test <0.01 See_Comment [Automated message] code = 9732678368) The syste m which generated this result transmitted ref erence range: 10*3/?L. The reference range was not used to interpr et this result as normal/abnormal . GRAN MAT (NEUT) % 55.2 % (test code = 770-8) IMM GRAN % (test 0.30 % code = 6726009592) LYMPH % (test code 32.2 % = 736-9) MONO % (test code 8.9 % = 5905-5) EOS % (test code = 2.7 % 713-8) BASO % (test code 0.7 % = 706-2) GRAN MAT 3.89 10*3/uL 1.88-7.09 x10^3(ANC) (test code = 2121871532) IMM GRAN x10^3 <0.03 0-0.06 (test code = 3817291882) LYMPH x10^3 (test 2.27 10*3/uL 1.32-3.29 code = 731-0) MONO x10^3 (test 0.63 10*3/uL 0.33-0.92 code = 742-7) EOS x10^3 (test 0.19 10*3/uL 0.03-0.39 code = 711-2) BASO x10^3 (test 0.05 10*3/uL 0.01-0.07 code = 704-7) [facility] [id number] 16:42:49HISTORY: Shortness of breath. TECHNIQUE: 2 Portable AP erect views of the chest were obtained. No priorchest study available for comparison. FINDINGS: No acute pneumonia. No pneumothorax or pleural effusion orpulmonary congestion detected. Cardiac size is within normal limits. CONCLUSIONS: No signs ofacute cardiopulmonary disease.[facility], Radiant Results Inft User - 06/17/2020 10:43 AM CSTHISTORY: Shortness of breath.TECHNIQUE: 2 Portable AP erect views of the chest were obtained. No priorchest study available for comparison.FINDINGS: No acute pneumonia. No pneumothorax or pleural effusion orpulmonary congestion detected. Cardiac size is within normal limits. CONCLUSIONS: No signs of acute cardiopulmonary disease.[facility] 22:52:00 Test Item Value Reference Range Interpretation Comments APPEARANCE (test code = Clear Clear 5045205522) COLOR (test code = Yellow Yellow 2301010774) PH (test code = 4.8-8.0 3136408925) SP GRAVITY (test code = 1.003-1.030 0644789381) GLU U QUAL (test code = Normal Normal 6957185492) BLOOD (test code = Negative Negative INTERFERE NCE FROM 6566771496) ASCORBIC ACID M AY CAUSE FALSE NEG ATIVE RESULT KETONES (test code = Negative Negative 8509362640) PROTEIN (test code = Negative Negative 2887-8) UROBILIN (test code = Normal Normal 3143203873) BILIRUBIN (test code = Negative Negative 8088844524) NITRITE (test code = Negative Negative 5134689125) LEUK ANDER (test code = 25/uL Negative A 1849045488) RBC/HPF (test code = <1 See_Comment [Autom ated message] 8098840122) The system [employer] generated this result transmitted ref erence range: 0 - 3 HP F. The reference range was not used to int erpret this result as normal/abnormal . WBC/HPF (test code = See_Comment [Autom ated message] 2245659366) The system [employer] generated this result transmitted ref erence range: 0 - 5 HP F. The reference range was not used to int erpret this result as normal/abnormal . BACTERIA (test code = Negative Negative 1266045100) MUCOUS (test code = Slight Negative LPF A 1447227113) SQ EPITH (test code = HPF 7779097693) Lab Interpretation (test Abnormal code = 93098-9) [facility] ([id number])2020-04-08 22:48:00 Test Item Value Reference Range Interpretation Comments NA (test code = 141 mmol/L 135-145 6683580504) K (test code = 4.2 mmol/L 3.5-5 3559180112) CL (test code = 103 mmol/L 98-108 3839664491) CO2 TOTAL (test code = 28 mmol/L 23-31 4704472994) AGAP (test code = 2-16 9095108601) BUN (test code = 18 mg/dL 7-23 5140684940) GLUCOSE (test code = 112 mg/dL 70-110 H 9446655337) CREATININE (test code = 0.80 mg/dL 0.5-1.04 1093871772) TOTAL BILI (test code = 0.5 mg/dL 0.1-1.4 8304446677) CALCIUM (test code = 10.2 mg/dL 8.6-10.6 9535751394) T PROTEIN (test code = 9.3 g/dL 6.3-8.2 H 2302649925) ALBUMIN (test code = 4.9 g/dL 3.5-5 9792594274) ALK PHOS (test code = 101 U/L 34-122 6668703497) ALTv (test code = 40 U/L 5-35 H 1742-6) AST(SGOT) (test code = 42 U/L 13-40 H 5860158293) eGFR Calculation mL/min/1.73m2 (Non-) (test code = 0637062679) eGFR Calculation mL/min/1.73m2 () (test code = 7719568416) MARI (test code = MARI) Association of Glomerular Filtration Rate (GFR) and Staging of Kidney Disease* + --+ --+ ------+| GFR (mL/min/1.73 m2) ?| With Kidney Damage ?| ?Without Kidney Damage+ --------+ --------+ +| ?>90 ?| ?Stage one ?| ? Normal ?+ ---+ ---+ -------+| ?60-89 ?| ?Stage two ?| ? Decreased GFR ? + --+ --+ ------+| ?30-59 ?| ?Stage three ?| ? Stage three ? + --+ --+ ------+| ?15-29 ?| ?Stage four ? | ? Stage four ?+ ---+ ---+ -------+| ?<15 (or dialysis) ? ?| ?Stage five ? | ? Stage five ?+ ---+ ---+ -------+ *Each stage assumes the associated GFR level has been in effect for at least three months. ?Stages 1 to 5, with or without kidney disease, indicate chronic kidney disease. Notes: Determination of stages one and two (with eGFR >59mL/min/1.73 m2) requires estimation of kidney damage for at least three months as defined by structural or functional abnormalities of the kidney, manifested by either:Pathological abnormalities or Markers of kidney damage (including abnormalities in the composition of the blood or urine or abnormalities in imaging tests). Lab Interpretation Abnormal (test code = 11319-3) [facility] WITH [id number] 22:34:00 Test Item Value Reference Range Interpretation Comments WBC (test code = See_Comment [Automated 6690-2) message] The sy stem which generated this result transmitted reference range : 4.30 - 11.10 10*3/?L. The reference range was not used to interpret this result as normal/abnormal . RBC (test code = See_Comment [Automated 789-8) message] The sy stem which generated this result transmitted reference range : 3.93 - 5.25 10*6/?L. The reference range was not used to interpret this result as normal/abnormal . HGB (test code = 14.2 g/dL 11.6-15 718-7) HCT (test code = 43.1 % 35.7-45.2 4544-3) MCV (test code = 96.0 fL 80.6-95.5 H 787-2) MCH (test code = 31.6 pg 25.9-32.8 785-6) MCHC (test code = 32.9 g/dL 31.6-35.1 786-4) RDW-SD (test code = 42.2 fL 39-49.9 03060-5) RDW-CV (test code = 11.9 % 12-15.5 L 788-0) PLT (test code = See_Comment [Automated 777-3) message] The sy stem which generated this result transmitted reference range : 166 - 358 10*3/ ?L. The reference r teddy was not used to interpret this result as normal/abnormal . MPV (test code = 10.1 fL 9.5-12.9 83664-6) NRBC/100 WBC (test See_Comment [Automat ed code = [id number]) message] The system which generated this result transmitted reference range : 0.0 - 10.0 /100 WBCs. The refer ence range was not u sed to interpret th is result as normal/abnormal . NRBC x10^3 (test code <0.01 See_Comment [Auto mated = [id number]) message] The s ystem which generated this result transmitted reference range : 10*3/?L. The reference range was not used to interpret this result as normal/abnormal . GRAN MAT (NEUT) % 55.1 % (test code = 770-8) IMM GRAN % (test code 0.20 % = [id number]) LYMPH % (test code = 32.7 % 736-9) MONO % (test code = 8.4 % 5905-5) EOS % (test code = 2.9 % 713-8) BASO % (test code = 0.7 % 706-2) GRAN MAT x10^3(ANC) 5.30 10*3/uL 1.88-7.09 (test code = 0215673183) IMM GRAN x10^3 (test <0.03 0-0.06 code = [id number]) LYMPH x10^3 (test code 3.15 10*3/uL 1.32-3.29 = 731-0) MONO x10^3 (test code 0.81 10*3/uL 0.33-0.92 = 742-7) EOS x10^3 (test code = 0.28 10*3/uL 0.03-0.39 711-2) BASO x10^3 (test code 0.07 10*3/uL 0.01-0.07 = 704-7) Lab Interpretation Abnormal (test code = 04283-2) [facility], [id number] 00:00:00 Test Item Value Reference Range Interpretation Comments CULTURE, URINE (test SPECIMEN NUMBER: code = 47491) [id number] CULTURE, [id number] 00:00:00 Test Item Value Reference Range Interpretation Comments CULTURE, URINE (test SPECIMEN NUMBER: code = 48394) [id number] CULTURE, [id number] 00:00:00 Test Item Value Reference Range Interpretation Comments CULTURE, URINE (test SPECIMEN NUMBER: code = 85369) [id number] THYROID II PROFILE (TU,T4,FTI,TSH) [ADDED]2019-11-09 00:00:00 Test Item Value Reference Range Interpretation Comments T-UPTAKE (test code = 2817) 30.2 % THYROX. BIND. CAPAC. (test code 1.1 = 40666) T4 (THYROXINE) (test code = 10.1 UG/DL 2819) CORRECTED T4 (FTI) (test code = 9.2 UG/DL 2820) TSH, THIRD GENERATION (test code 2.240 UIU/ML = 2821) THYROID II PROFILE (TU,T4,FTI,TSH) [ADDED]2019-11-09 00:00:00 Test Item Value Reference Range Interpretation Comments T-UPTAKE (test code = 2817) 30.2 % THYROX. BIND. CAPAC. (test code 1.1 = 62226) T4 (THYROXINE) (test code = 10.1 UG/DL 2819) CORRECTED T4 (FTI) (test code = 9.2 UG/DL 2820) TSH, THIRD GENERATION (test code 2.240 UIU/ML = 2821) THYROID II PROFILE (TU,T4,FTI,TSH) [ADDED]2019-11-09 00:00:00 Test Item Value Reference Range Interpretation Comments T-UPTAKE (test code = 2817) 30.2 % THYROX. BIND. CAPAC. (test code 1.1 = 84283) T4 (THYROXINE) (test code = 10.1 UG/DL 2819) CORRECTED T4 (FTI) (test code = 9.2 UG/DL 2820) TSH, THIRD GENERATION (test code 2.240 UIU/ML = 2821) THYROID II PROFILE (T3U, T4, T7, TSH)2019-09-02 00:00:00 Test Item Value Reference Range Interpretation Comments T-UPTAKE (test code = 2817) 27.2 % THYROX. BIND. CAPAC. (test code 1.2 = 64485) T4 (THYROXINE) (test code = 9.5 UG/DL 2819) CORRECTED T4 (FTI) (test code = 7.9 UG/DL 2820) TSH, THIRD GENERATION (test code 4.190 UIU/ML = 2821) THYROID II PROFILE (T3U, T4, T7, TSH)2019-09-02 00:00:00 Test Item Value Reference Range Interpretation Comments T-UPTAKE (test code = 2817) 27.2 % THYROX. BIND. CAPAC. (test code 1.2 = 54732) T4 (THYROXINE) (test code = 9.5 UG/DL 2819) CORRECTED T4 (FTI) (test code = 7.9 UG/DL 2820) TSH, THIRD GENERATION (test code 4.190 UIU/ML = 2821) THYROID II PROFILE (T3U, T4, T7, TSH)2019-09-02 00:00:00 Test Item Value Reference Range Interpretation Comments T-UPTAKE (test code = 2817) 27.2 % THYROX. BIND. CAPAC. (test code 1.2 = 87559) T4 (THYROXINE) (test code = 9.5 UG/DL 2819) CORRECTED T4 (FTI) (test code = 7.9 UG/DL 2820) TSH, THIRD GENERATION (test code 4.190 UIU/ML = 2821) CULTURE, [id number] 00:00:00 Test Item Value Reference Range Interpretation Comments CULTURE, URINE (test SPECIMEN NUMBER: code = 09267) [id number] CULTURE, [id number] 00:00:00 Test Item Value Reference Range Interpretation Comments CULTURE, URINE (test SPECIMEN NUMBER: code = 08710) [id number] CULTURE, [id number] 00:00:00 Test Item Value Reference Range Interpretation Comments CULTURE, URINE (test SPECIMEN NUMBER: code = 14465) [id number] HEMOGLOBIN [id number] 00:00:00 Test Item Value Reference Range Interpretation Comments HEMOGLOBIN A1c (test code = 60188) 6.3 % HEMOGLOBIN [id number] 00:00:00 Test Item Value Reference Range Interpretation Comments HEMOGLOBIN A1c (test code = 36328) 6.3 % COMPREHENSIVE METABOLIC [id number] 00:00:00 Test Item Value Reference Range Interpretation Comments GLUCOSE (test code = 2217) 98 MG/DL BUN (test code = 2208) 13 MG/DL CREATININE (test code = 2214) 0.83 MG/DL eGFR AMER. (test code 91 ML/MIN/1.73 = 55168) eGFR NON- AMER. (test 79 ML/MIN/1.73 code = 36697) CALC BUN/CREAT (test code = 16 RATIO 2235) SODIUM (test code = 2231) 145 MEQ/L POTASSIUM (test code = 2228) 4.8 MEQ/L CHLORIDE (test code = 2215) 105 MEQ/L CARBON DIOXIDE (test code = 24 MEQ/L 220) CALCIUM (test code = 2209) 10.0 MG/DL PROTEIN, TOTAL (test code = 8.7 G/DL 2228) ALBUMIN (test code = 2201) 4.8 G/DL CALC GLOBULIN (test code = 3.9 G/DL 2240) CALC A/G RATIO (test code = 1.2 RATIO 2234) BILIRUBIN, TOTAL (test code = 0.4 MG/DL 2206) ALKALINE PHOSPHATASE (test 119 U/L code = 2204) AST (test code = 2218) 27 U/L ALT (test code = 2219) 23 U/L THYROID II PROFILE (T3U, T4, T7, TSH)2019-07-19 00:00:00 Test Item Value Reference Range Interpretation Comments T-UPTAKE (test code = 2817) 27.2 % THYROX. BIND. CAPAC. (test code 1.2 = 93758) T4 (THYROXINE) (test code = 8.8 UG/DL 2819) CORRECTED T4 (FTI) (test code = 7.3 UG/DL 2820) TSH, THIRD GENERATION (test code 5.010 UIU/ML = 2821) LIPID [id number] 00:00:00 Test Item Value Reference Range Interpretation Comments CHOLESTEROL (test code = 2210) 152 MG/DL TRIGLYCERIDES (test code = 2232) 183 MG/DL HDL CHOLESTEROL (test code = 2220) 37 MG/DL CALC LDL CHOL (test code = 2237) 87 MG/DL RISK RATIO LDL/HDL (test code = 2.35 RATIO 2238) HEMOGLOBIN [id number] 00:00:00 Test Item Value Reference Range Interpretation Comments HEMOGLOBIN A1c (test code = 61361) 6.3 % HEMOGLOBIN [id number] 00:00:00 Test Item Value Reference Range Interpretation Comments HEMOGLOBIN A1c (test code = 68314) 6.3 % HEMOGLOBIN [id number] 00:00:00 Test Item Value Reference Range Interpretation Comments HEMOGLOBIN A1c (test code = 09008) 6.3 % COMPREHENSIVE METABOLIC [id number] 00:00:00 Test Item Value Reference Range Interpretation Comments GLUCOSE (test code = 2217) 98 MG/DL BUN (test code = 2208) 13 MG/DL CREATININE (test code = 2214) 0.83 MG/DL eGFR AMER. (test code 91 ML/MIN/1.73 = 09989) eGFR NON- AMER. (test 79 ML/MIN/1.73 code = 49615) CALC BUN/CREAT (test code = 16 RATIO 2235) SODIUM (test code = 2231) 145 MEQ/L POTASSIUM (test code = 2228) 4.8 MEQ/L CHLORIDE (test code = 2215) 105 MEQ/L CARBON DIOXIDE (test code = 24 MEQ/L 2206) CALCIUM (test code = 2209) 10.0 MG/DL PROTEIN, TOTAL (test code = 8.7 G/DL 222) ALBUMIN (test code = 2201) 4.8 G/DL CALC GLOBULIN (test code = 3.9 G/DL 2240) CALC A/G RATIO (test code = 1.2 RATIO 2234) BILIRUBIN, TOTAL (test code = 0.4 MG/DL 2206) ALKALINE PHOSPHATASE (test 119 U/L code = 2204) AST (test code = 2218) 27 U/L ALT (test code = 2219) 23 U/L COMPREHENSIVE METABOLIC [id number] 00:00:00 Test Item Value Reference Range Interpretation Comments GLUCOSE (test code = 2217) 98 MG/DL BUN (test code = 2208) 13 MG/DL CREATININE (test code = 2214) 0.83 MG/DL eGFR AMER. (test code 91 ML/MIN/1.73 = 73164) eGFR NON- AMER. (test 79 ML/MIN/1.73 code = 42266) CALC BUN/CREAT (test code = 16 RATIO 2235) SODIUM (test code = 2231) 145 MEQ/L POTASSIUM (test code = 2228) 4.8 MEQ/L CHLORIDE (test code = 2215) 105 MEQ/L CARBON DIOXIDE (test code = 24 MEQ/L 2206) CALCIUM (test code = 2209) 10.0 MG/DL PROTEIN, TOTAL (test code = 8.7 G/DL 2228) ALBUMIN (test code = 2201) 4.8 G/DL CALC GLOBULIN (test code = 3.9 G/DL 2240) CALC A/G RATIO (test code = 1.2 RATIO 2234) BILIRUBIN, TOTAL (test code = 0.4 MG/DL 2206) ALKALINE PHOSPHATASE (test 119 U/L code = 2204) AST (test code = 2218) 27 U/L ALT (test code = 2219) 23 U/L THYROID II PROFILE (T3U, T4, T7, TSH)2019-07-19 00:00:00 Test Item Value Reference Range Interpretation Comments T-UPTAKE (test code = 2817) 27.2 % THYROX. BIND. CAPAC. (test code 1.2 = 27244) T4 (THYROXINE) (test code = 8.8 UG/DL 2819) CORRECTED T4 (FTI) (test code = 7.3 UG/DL 2820) TSH, THIRD GENERATION (test code 5.010 UIU/ML = 2821) THYROID II PROFILE (T3U, T4, T7, TSH)2019-07-19 00:00:00 Test Item Value Reference Range Interpretation Comments T-UPTAKE (test code = 2817) 27.2 % THYROX. BIND. CAPAC. (test code 1.2 = 02418) T4 (THYROXINE) (test code = 8.8 UG/DL 2819) CORRECTED T4 (FTI) (test code = 7.3 UG/DL 2820) TSH, THIRD GENERATION (test code 5.010 UIU/ML = 2821) LIPID [id number] 00:00:00 Test Item Value Reference Range Interpretation Comments CHOLESTEROL (test code = 2210) 152 MG/DL TRIGLYCERIDES (test code = 2232) 183 MG/DL HDL CHOLESTEROL (test code = 2220) 37 MG/DL CALC LDL CHOL (test code = 2237) 87 MG/DL RISK RATIO LDL/HDL (test code = 2.35 RATIO 2238) LIPID [id number] 00:00:00 Test Item Value Reference Range Interpretation Comments CHOLESTEROL (test code = 2210) 152 MG/DL TRIGLYCERIDES (test code = 2232) 183 MG/DL HDL CHOLESTEROL (test code = 2220) 37 MG/DL CALC LDL CHOL (test code = 2237) 87 MG/DL RISK RATIO LDL/HDL (test code = 2.35 RATIO 2238) HEMOGLOBIN A1c [ADDED]2019-05-14 00:00:00 Test Item Value Reference Range Interpretation Comments HEMOGLOBIN A1c (test code = 60997) 6.1 % HEMOGLOBIN A1c [ADDED]2019-05-14 00:00:00 Test Item Value Reference Range Interpretation Comments HEMOGLOBIN A1c (test code = 11087) 6.1 % CBC W/AUTO DIFF WITH PLATELETS [ADDED]2019-05-14 00:00:00 Test Item Value Reference Range Interpretation Comments WBC (test code = 1001) 8.5 K/UL RBC (test code = 1002) 4.44 M/UL HEMOGLOBIN (test code = 1003) 14.2 G/DL HEMATOCRIT (test code = 1004) 40.9 % MCV (test code = 1005) 92.1 fL MCH (test code = 1006) 32.0 PG MCHC (test code = 1007) 34.7 G/DL RDW (test code = 1038) 12.5 % NEUTROPHILS (test code = 1008) 56.0 % LYMPHOCYTES (test code = 1010) 32.1 % MONOCYTES (test code = 1011) 7.6 % EOSINOPHILS (test code = 1012) 3.5 % BASOPHILS (test code = 1013) 0.8 % PLATELET COUNT (test code = 1015) 320 K/UL CBC W/AUTO DIFF WITH PLATELETS [ADDED]2019-05-14 00:00:00 Test Item Value Reference Range Interpretation Comments WBC (test code = 1001) 8.5 K/UL RBC (test code = 1002) 4.44 M/UL HEMOGLOBIN (test code = 1003) 14.2 G/DL HEMATOCRIT (test code = 1004) 40.9 % MCV (test code = 1005) 92.1 fL MCH (test code = 1006) 32.0 PG MCHC (test code = 1007) 34.7 G/DL RDW (test code = 1038) 12.5 % NEUTROPHILS (test code = 1008) 56.0 % LYMPHOCYTES (test code = 1010) 32.1 % MONOCYTES (test code = 1011) 7.6 % EOSINOPHILS (test code = 1012) 3.5 % BASOPHILS (test code = 1013) 0.8 % PLATELET COUNT (test code = 1015) 320 K/UL COMPREHENSIVE METABOLIC PANEL [ADDED]2019-05-14 00:00:00 Test Item Value Reference Range Interpretation Comments GLUCOSE (test code = 2217) 92 MG/DL BUN (test code = 2208) 19 MG/DL CREATININE (test code = 2214) 0.68 MG/DL eGFR AMER. (test code 114 ML/MIN/1.73 = 24909) eGFR NON- AMER. (test 98 ML/MIN/1.73 code = 65571) CALC BUN/CREAT (test code = 28 RATIO 2235) SODIUM (test code = 2231) 143 MEQ/L POTASSIUM (test code = 2228) 4.0 MEQ/L CHLORIDE (test code = 2215) 102 MEQ/L CARBON DIOXIDE (test code = 26 MEQ/L 2205) CALCIUM (test code = 2209) 10.1 MG/DL PROTEIN, TOTAL (test code = 9.0 G/DL 2228) ALBUMIN (test code = 2201) 4.8 G/DL CALC GLOBULIN (test code = 4.2 G/DL 2239) CALC A/G RATIO (test code = 1.1 RATIO 2233) BILIRUBIN, TOTAL (test code = 0.2 MG/DL 2206) ALKALINE PHOSPHATASE (test 111 U/L code = 2204) AST (test code = 2218) 29 U/L ALT (test code = 2219) 24 U/L LIPID PANEL [ADDED]2019-05-14 00:00:00 Test Item Value Reference Range Interpretation Comments CHOLESTEROL (test code = 2210) 255 MG/DL TRIGLYCERIDES (test code = 2232) 376 MG/DL HDL CHOLESTEROL (test code = 2220) 34 MG/DL CALC LDL CHOL (test code = 2237) 146 MG/DL RISK RATIO LDL/HDL (test code = 4.29 RATIO 8) THYROID II PROFILE (TU,T4,FTI,TSH) [ADDED]2019-05-14 00:00:00 Test Item Value Reference Range Interpretation Comments T-UPTAKE (test code = 2817) 27.2 % THYROX. BIND. CAPAC. (test code 1.2 = 38483) T4 (THYROXINE) (test code = 7.2 UG/DL 2819) CORRECTED T4 (FTI) (test code = 6.0 UG/DL 2820) TSH, THIRD GENERATION (test code 7.940 UIU/ML = 2821) HEMOGLOBIN A1c [ADDED]2019-05-14 00:00:00 Test Item Value Reference Range Interpretation Comments HEMOGLOBIN A1c (test code = 02867) 6.1 % HEMOGLOBIN A1c [ADDED]2019-05-14 00:00:00 Test Item Value Reference Range Interpretation Comments HEMOGLOBIN A1c (test code = 00329) 6.1 % HEMOGLOBIN A1c [ADDED]2019-05-14 00:00:00 Test Item Value Reference Range Interpretation Comments HEMOGLOBIN A1c (test code = 86260) 6.1 % CBC W/AUTO DIFF WITH PLATELETS [ADDED]2019-05-14 00:00:00 Test Item Value Reference Range Interpretation Comments WBC (test code = 1001) 8.5 K/UL RBC (test code = 1002) 4.44 M/UL HEMOGLOBIN (test code = 1003) 14.2 G/DL HEMATOCRIT (test code = 1004) 40.9 % MCV (test code = 1005) 92.1 fL MCH (test code = 1006) 32.0 PG MCHC (test code = 1007) 34.7 G/DL RDW (test code = 1038) 12.5 % NEUTROPHILS (test code = 1008) 56.0 % LYMPHOCYTES (test code = 1010) 32.1 % MONOCYTES (test code = 1011) 7.6 % EOSINOPHILS (test code = 1012) 3.5 % BASOPHILS (test code = 1013) 0.8 % PLATELET COUNT (test code = 1015) 320 K/UL CBC W/AUTO DIFF WITH PLATELETS [ADDED]2019-05-14 00:00:00 Test Item Value Reference Range Interpretation Comments WBC (test code = 1001) 8.5 K/UL RBC (test code = 1002) 4.44 M/UL HEMOGLOBIN (test code = 1003) 14.2 G/DL HEMATOCRIT (test code = 1004) 40.9 % MCV (test code = 1005) 92.1 fL MCH (test code = 1006) 32.0 PG MCHC (test code = 1007) 34.7 G/DL RDW (test code = 1038) 12.5 % NEUTROPHILS (test code = 1008) 56.0 % LYMPHOCYTES (test code = 1010) 32.1 % MONOCYTES (test code = 1011) 7.6 % EOSINOPHILS (test code = 1012) 3.5 % BASOPHILS (test code = 1013) 0.8 % PLATELET COUNT (test code = 1015) 320 K/UL CBC W/AUTO DIFF WITH PLATELETS [ADDED]2019-05-14 00:00:00 Test Item Value Reference Range Interpretation Comments WBC (test code = 1001) 8.5 K/UL RBC (test code = 1002) 4.44 M/UL HEMOGLOBIN (test code = 1003) 14.2 G/DL HEMATOCRIT (test code = 1004) 40.9 % MCV (test code = 1005) 92.1 fL MCH (test code = 1006) 32.0 PG MCHC (test code = 1007) 34.7 G/DL RDW (test code = 1038) 12.5 % NEUTROPHILS (test code = 1008) 56.0 % LYMPHOCYTES (test code = 1010) 32.1 % MONOCYTES (test code = 1011) 7.6 % EOSINOPHILS (test code = 1012) 3.5 % BASOPHILS (test code = 1013) 0.8 % PLATELET COUNT (test code = 1015) 320 K/UL COMPREHENSIVE METABOLIC PANEL [ADDED]2019-05-14 00:00:00 Test Item Value Reference Range Interpretation Comments GLUCOSE (test code = 2217) 92 MG/DL BUN (test code = 2208) 19 MG/DL CREATININE (test code = 2214) 0.68 MG/DL eGFR AMER. (test code 114 ML/MIN/1.73 = 58829) eGFR NON- AMER. (test 98 ML/MIN/1.73 code = 70380) CALC BUN/CREAT (test code = 28 RATIO 2235) SODIUM (test code = 2231) 143 MEQ/L POTASSIUM (test code = 2228) 4.0 MEQ/L CHLORIDE (test code = 2215) 102 MEQ/L CARBON DIOXIDE (test code = 26 MEQ/L 2206) CALCIUM (test code = 2209) 10.1 MG/DL PROTEIN, TOTAL (test code = 9.0 G/DL 2228) ALBUMIN (test code = 2201) 4.8 G/DL CALC GLOBULIN (test code = 4.2 G/DL 2240) CALC A/G RATIO (test code = 1.1 RATIO 2234) BILIRUBIN, TOTAL (test code = 0.2 MG/DL 2206) ALKALINE PHOSPHATASE (test 111 U/L code = 2204) AST (test code = 2218) 29 U/L ALT (test code = 2219) 24 U/L COMPREHENSIVE METABOLIC PANEL [ADDED]2019-05-14 00:00:00 Test Item Value Reference Range Interpretation Comments GLUCOSE (test code = 2217) 92 MG/DL BUN (test code = 2208) 19 MG/DL CREATININE (test code = 2214) 0.68 MG/DL eGFR AMER. (test code 114 ML/MIN/1.73 = 93963) eGFR NON- AMER. (test 98 ML/MIN/1.73 code = 79579) CALC BUN/CREAT (test code = 28 RATIO 2235) SODIUM (test code = 2231) 143 MEQ/L POTASSIUM (test code = 2228) 4.0 MEQ/L CHLORIDE (test code = 2215) 102 MEQ/L CARBON DIOXIDE (test code = 26 MEQ/L 2205) CALCIUM (test code = 2209) 10.1 MG/DL PROTEIN, TOTAL (test code = 9.0 G/DL 2228) ALBUMIN (test code = 2201) 4.8 G/DL CALC GLOBULIN (test code = 4.2 G/DL 2240) CALC A/G RATIO (test code = 1.1 RATIO 2234) BILIRUBIN, TOTAL (test code = 0.2 MG/DL 2206) ALKALINE PHOSPHATASE (test 111 U/L code = 2204) AST (test code = 2218) 29 U/L ALT (test code = 2219) 24 U/L LIPID PANEL [ADDED]2019-05-14 00:00:00 Test Item Value Reference Range Interpretation Comments CHOLESTEROL (test code = 2210) 255 MG/DL TRIGLYCERIDES (test code = 2232) 376 MG/DL HDL CHOLESTEROL (test code = 2220) 34 MG/DL CALC LDL CHOL (test code = 2237) 146 MG/DL RISK RATIO LDL/HDL (test code = 4.29 RATIO 2238) LIPID PANEL [ADDED]2019-05-14 00:00:00 Test Item Value Reference Range Interpretation Comments CHOLESTEROL (test code = 2210) 255 MG/DL TRIGLYCERIDES (test code = 2232) 376 MG/DL HDL CHOLESTEROL (test code = 2220) 34 MG/DL CALC LDL CHOL (test code = 2237) 146 MG/DL RISK RATIO LDL/HDL (test code = 4.29 RATIO 2238) THYROID II PROFILE (TU,T4,FTI,TSH) [ADDED]2019-05-14 00:00:00 Test Item Value Reference Range Interpretation Comments T-UPTAKE (test code = 2817) 27.2 % THYROX. BIND. CAPAC. (test code 1.2 = 17968) T4 (THYROXINE) (test code = 7.2 UG/DL 2819) CORRECTED T4 (FTI) (test code = 6.0 UG/DL 2820) TSH, THIRD GENERATION (test code 7.940 UIU/ML = 2821) THYROID II PROFILE (TU,T4,FTI,TSH) [ADDED]2019-05-14 00:00:00 Test Item Value Reference Range Interpretation Comments T-UPTAKE (test code = 2817) 27.2 % THYROX. BIND. CAPAC. (test code 1.2 = 57538) T4 (THYROXINE) (test code = 7.2 UG/DL 2819) CORRECTED T4 (FTI) (test code = 6.0 UG/DL 2820) TSH, THIRD GENERATION (test code 7.940 UIU/ML = 2821) COMPREHENSIVE METABOLIC [id number] 00:00:00 Test Item Value Reference Range Interpretation Comments GLUCOSE (test code = 2217) 98 MG/DL BUN (test code = 2208) 12 MG/DL CREATININE (test code = 2214) 0.69 MG/DL eGFR AMER. (test code 114 ML/MIN/1.73 = 98710) eGFR NON- AMER. (test 98 ML/MIN/1.73 code = 59821) CALC BUN/CREAT (test code = 17 RATIO 2235) SODIUM (test code = 2231) 141 MEQ/L POTASSIUM (test code = 2228) 4.0 MEQ/L CHLORIDE (test code = 2215) 104 MEQ/L CARBON DIOXIDE (test code = 22 MEQ/L 220) CALCIUM (test code = 2209) 9.8 MG/DL PROTEIN, TOTAL (test code = 8.6 G/DL 2228) ALBUMIN (test code = 2201) 4.4 G/DL CALC GLOBULIN (test code = 4.2 G/DL 2240) CALC A/G RATIO (test code = 1.0 RATIO 2234) BILIRUBIN, TOTAL (test code = 0.3 MG/DL 2206) ALKALINE PHOSPHATASE (test 121 U/L code = 2204) AST (test code = 2218) 31 U/L ALT (test code = 2219) 23 U/L LIPID [id number] 00:00:00 Test Item Value Reference Range Interpretation Comments CHOLESTEROL (test code = 2210) 203 MG/DL TRIGLYCERIDES (test code = 2232) 191 MG/DL HDL CHOLESTEROL (test code = 2220) 29 MG/DL CALC LDL CHOL (test code = 2237) 136 MG/DL RISK RATIO LDL/HDL (test code = 4.68 RATIO 2238) [id number] 00:00:00 Test Item Value Reference Range Interpretation Comments TSH, THIRD GENERATION (test code 4.830 UIU/ML = 2821) [id number] 00:00:00 Test Item Value Reference Range Interpretation Comments TSH, THIRD GENERATION (test code 4.830 UIU/ML = 2821) COMPREHENSIVE METABOLIC [id number] 00:00:00 Test Item Value Reference Range Interpretation Comments GLUCOSE (test code = 2217) 98 MG/DL BUN (test code = 2208) 12 MG/DL CREATININE (test code = 2214) 0.69 MG/DL eGFR AMER. (test code 114 ML/MIN/1.73 = 62245) eGFR NON- AMER. (test 98 ML/MIN/1.73 code = 40234) CALC BUN/CREAT (test code = 17 RATIO 2235) SODIUM (test code = 2231) 141 MEQ/L POTASSIUM (test code = 2228) 4.0 MEQ/L CHLORIDE (test code = 2215) 104 MEQ/L CARBON DIOXIDE (test code = 22 MEQ/L 2205) CALCIUM (test code = 2209) 9.8 MG/DL PROTEIN, TOTAL (test code = 8.6 G/DL 2228) ALBUMIN (test code = 2201) 4.4 G/DL CALC GLOBULIN (test code = 4.2 G/DL 2240) CALC A/G RATIO (test code = 1.0 RATIO 2234) BILIRUBIN, TOTAL (test code = 0.3 MG/DL 2206) ALKALINE PHOSPHATASE (test 121 U/L code = 2204) AST (test code = 2218) 31 U/L ALT (test code = 2219) 23 U/L COMPREHENSIVE METABOLIC [id number] 00:00:00 Test Item Value Reference Range Interpretation Comments GLUCOSE (test code = 2217) 98 MG/DL BUN (test code = 2208) 12 MG/DL CREATININE (test code = 2214) 0.69 MG/DL eGFR AMER. (test code 114 ML/MIN/1.73 = 45271) eGFR NON- AMER. (test 98 ML/MIN/1.73 code = 09645) CALC BUN/CREAT (test code = 17 RATIO 2235) SODIUM (test code = 2231) 141 MEQ/L POTASSIUM (test code = 2228) 4.0 MEQ/L CHLORIDE (test code = 2215) 104 MEQ/L CARBON DIOXIDE (test code = 22 MEQ/L 2205) CALCIUM (test code = 2209) 9.8 MG/DL PROTEIN, TOTAL (test code = 8.6 G/DL 2228) ALBUMIN (test code = 2201) 4.4 G/DL CALC GLOBULIN (test code = 4.2 G/DL 2240) CALC A/G RATIO (test code = 1.0 RATIO 4) BILIRUBIN, TOTAL (test code = 0.3 MG/DL 2206) ALKALINE PHOSPHATASE (test 121 U/L code = 2204) AST (test code = 2218) 31 U/L ALT (test code = 2219) 23 U/L LIPID [id number] 00:00:00 Test Item Value Reference Range Interpretation Comments CHOLESTEROL (test code = 2210) 203 MG/DL TRIGLYCERIDES (test code = 2232) 191 MG/DL HDL CHOLESTEROL (test code = 2220) 29 MG/DL CALC LDL CHOL (test code = 2237) 136 MG/DL RISK RATIO LDL/HDL (test code = 4.68 RATIO 2238) LIPID [id number] 00:00:00 Test Item Value Reference Range Interpretation Comments CHOLESTEROL (test code = 2210) 203 MG/DL TRIGLYCERIDES (test code = 2232) 191 MG/DL HDL CHOLESTEROL (test code = 2220) 29 MG/DL CALC LDL CHOL (test code = 2237) 136 MG/DL RISK RATIO LDL/HDL (test code = 4.68 RATIO 2238) [id number] 00:00:00 Test Item Value Reference Range Interpretation Comments TSH, THIRD GENERATION (test code 4.830 UIU/ML = 2821) [id number] 00:00:00 Test Item Value Reference Range Interpretation Comments TSH, THIRD GENERATION (test code 4.830 UIU/ML = 2821) [id number] 00:00:00 Test Item Value Reference Range Interpretation Comments TSH, THIRD GENERATION (test code 4.830 UIU/ML = 2821) CBC W/AUTO [id number] 00:00:00 Test Item Value Reference Range Interpretation Comments WBC (test code = 1001) 6.6 K/UL RBC (test code = 1002) 4.34 M/UL HEMOGLOBIN (test code = 1003) 13.4 G/DL HEMATOCRIT (test code = 1004) 39.7 % MCV (test code = 1005) 91.5 fL MCH (test code = 1006) 30.9 PG MCHC (test code = 1007) 33.8 G/DL RDW (test code = 1038) 12.9 % NEUTROPHILS (test code = 1008) 58.1 % LYMPHOCYTES (test code = 1010) 27.1 % MONOCYTES (test code = 1011) 10.3 % EOSINOPHILS (test code = 1012) 3.9 % BASOPHILS (test code = 1013) 0.6 % PLATELET COUNT (test code = 1015) 307 K/UL CBC W/AUTO [id number] 00:00:00 Test Item Value Reference Range Interpretation Comments WBC (test code = 1001) 6.6 K/UL RBC (test code = 1002) 4.34 M/UL HEMOGLOBIN (test code = 1003) 13.4 G/DL HEMATOCRIT (test code = 1004) 39.7 % MCV (test code = 1005) 91.5 fL MCH (test code = 1006) 30.9 PG MCHC (test code = 1007) 33.8 G/DL RDW (test code = 1038) 12.9 % NEUTROPHILS (test code = 1008) 58.1 % LYMPHOCYTES (test code = 1010) 27.1 % MONOCYTES (test code = 1011) 10.3 % EOSINOPHILS (test code = 1012) 3.9 % BASOPHILS (test code = 1013) 0.6 % PLATELET COUNT (test code = 1015) 307 K/UL HEMOGLOBIN [id number] 00:00:00 Test Item Value Reference Range Interpretation Comments HEMOGLOBIN A1c (test code = 64691) 6.1 % HEMOGLOBIN [id number] 00:00:00 Test Item Value Reference Range Interpretation Comments HEMOGLOBIN A1c (test code = 97877) 6.1 % CBC W/AUTO [id number] 00:00:00 Test Item Value Reference Range Interpretation Comments WBC (test code = 1001) 6.6 K/UL RBC (test code = 1002) 4.34 M/UL HEMOGLOBIN (test code = 1003) 13.4 G/DL HEMATOCRIT (test code = 1004) 39.7 % MCV (test code = 1005) 91.5 fL MCH (test code = 1006) 30.9 PG MCHC (test code = 1007) 33.8 G/DL RDW (test code = 1038) 12.9 % NEUTROPHILS (test code = 1008) 58.1 % LYMPHOCYTES (test code = 1010) 27.1 % MONOCYTES (test code = 1011) 10.3 % EOSINOPHILS (test code = 1012) 3.9 % BASOPHILS (test code = 1013) 0.6 % PLATELET COUNT (test code = 1015) 307 K/UL CBC W/AUTO [id number] 00:00:00 Test Item Value Reference Range Interpretation Comments WBC (test code = 1001) 6.6 K/UL RBC (test code = 1002) 4.34 M/UL HEMOGLOBIN (test code = 1003) 13.4 G/DL HEMATOCRIT (test code = 1004) 39.7 % MCV (test code = 1005) 91.5 fL MCH (test code = 1006) 30.9 PG MCHC (test code = 1007) 33.8 G/DL RDW (test code = 1038) 12.9 % NEUTROPHILS (test code = 1008) 58.1 % LYMPHOCYTES (test code = 1010) 27.1 % MONOCYTES (test code = 1011) 10.3 % EOSINOPHILS (test code = 1012) 3.9 % BASOPHILS (test code = 1013) 0.6 % PLATELET COUNT (test code = 1015) 307 K/UL CBC W/AUTO [id number] 00:00:00 Test Item Value Reference Range Interpretation Comments WBC (test code = 1001) 6.6 K/UL RBC (test code = 1002) 4.34 M/UL HEMOGLOBIN (test code = 1003) 13.4 G/DL HEMATOCRIT (test code = 1004) 39.7 % MCV (test code = 1005) 91.5 fL MCH (test code = 1006) 30.9 PG MCHC (test code = 1007) 33.8 G/DL RDW (test code = 1038) 12.9 % NEUTROPHILS (test code = 1008) 58.1 % LYMPHOCYTES (test code = 1010) 27.1 % MONOCYTES (test code = 1011) 10.3 % EOSINOPHILS (test code = 1012) 3.9 % BASOPHILS (test code = 1013) 0.6 % PLATELET COUNT (test code = 1015) 307 K/UL HEMOGLOBIN [id number] 00:00:00 Test Item Value Reference Range Interpretation Comments HEMOGLOBIN A1c (test code = 01993) 6.1 % HEMOGLOBIN [id number] 00:00:00 Test Item Value Reference Range Interpretation Comments HEMOGLOBIN A1c (test code = 73365) 6.1 % HEMOGLOBIN [id number] 00:00:00 Test Item Value Reference Range Interpretation Comments HEMOGLOBIN A1c (test code = 08086) 6.1 % GC, AMPLIFIED, [id number] 00:00:00 Test Item Value Reference Range Interpretation Comments GONORRHEA, TMA (test code = 96921) NEGATIVE CHLAMYDIA, AMPLIFIED, [id number] 00:00:00 Test Item Value Reference Range Interpretation Comments CHLAMYDIA, TMA (test code = 19426) NEGATIVE GC, AMPLIFIED, [id number] 00:00:00 Test Item Value Reference Range Interpretation Comments GONORRHEA, TMA (test code = 04843) NEGATIVE GC, AMPLIFIED, [id number] 00:00:00 Test Item Value Reference Range Interpretation Comments GONORRHEA, TMA (test code = 33509) NEGATIVE CHLAMYDIA, AMPLIFIED, [id number] 00:00:00 Test Item Value Reference Range Interpretation Comments CHLAMYDIA, TMA (test code = 95078) NEGATIVE CHLAMYDIA, AMPLIFIED, [id number] 00:00:00 Test Item Value Reference Range Interpretation Comments CHLAMYDIA, TMA (test code = 79111) NEGATIVE LIPID [id number] 00:00:00 Test Item Value Reference Range Interpretation Comments CHOLESTEROL (test code = 2210) 217 MG/DL TRIGLYCERIDES (test code = 2232) 409 MG/DL HDL CHOLESTEROL (test code = 2220) 30 MG/DL CALC LDL CHOL (test code = 2237) NOTE MG/DL CBC W/AUTO [id number] 00:00:00 Test Item Value Reference Range Interpretation Comments WBC (test code = 1001) 6.2 K/UL RBC (test code = 1002) 4.25 M/UL HEMOGLOBIN (test code = 1003) 13.4 G/DL HEMATOCRIT (test code = 1004) 39.9 % MCV (test code = 1005) 93.9 fL MCH (test code = 1006) 31.5 PG MCHC (test code = 1007) 33.6 G/DL RDW (test code = 1038) 13.1 % NEUTROPHILS (test code = 1008) 57.6 % LYMPHOCYTES (test code = 1010) 30.6 % MONOCYTES (test code = 1011) 7.7 % EOSINOPHILS (test code = 1012) 3.5 % BASOPHILS (test code = 1013) 0.6 % PLATELET COUNT (test code = 1015) 284 K/UL CBC W/AUTO [id number] 00:00:00 Test Item Value Reference Range Interpretation Comments WBC (test code = 1001) 6.2 K/UL RBC (test code = 1002) 4.25 M/UL HEMOGLOBIN (test code = 1003) 13.4 G/DL HEMATOCRIT (test code = 1004) 39.9 % MCV (test code = 1005) 93.9 fL MCH (test code = 1006) 31.5 PG MCHC (test code = 1007) 33.6 G/DL RDW (test code = 1038) 13.1 % NEUTROPHILS (test code = 1008) 57.6 % LYMPHOCYTES (test code = 1010) 30.6 % MONOCYTES (test code = 1011) 7.7 % EOSINOPHILS (test code = 1012) 3.5 % BASOPHILS (test code = 1013) 0.6 % PLATELET COUNT (test code = 1015) 284 K/UL HEMOGLOBIN [id number] 00:00:00 Test Item Value Reference Range Interpretation Comments HEMOGLOBIN A1c (test code = 85654) 6.1 % HEMOGLOBIN [id number] 00:00:00 Test Item Value Reference Range Interpretation Comments HEMOGLOBIN A1c (test code = 83052) 6.1 % [id number] 00:00:00 Test Item Value Reference Range Interpretation Comments TSH (test code = 2821) 5.9 UIU/ML [id number] 00:00:00 Test Item Value Reference Range Interpretation Comments TSH (test code = 2821) 5.9 UIU/ML HIV AB/AG COMBO RFLX [id number] 00:00:00 Test Item Value Reference Range Interpretation Comments HIV 1/2 4TH GEN, RFLX CONF (test NON-REACTIVE code = 3514) [id number] 00:00:00 Test Item Value Reference Range Interpretation Comments RPR RESULT (test code = NON-REACTIVE 3501) RPR TITER (test code = 3500) NOT INDIC. TITER [id number] 00:00:00 Test Item Value Reference Range Interpretation Comments RPR RESULT (test code = NON-REACTIVE 3501) RPR TITER (test code = 3500) NOT INDIC. TITER ACUTE HEPATITIS [id number] 00:00:00 Test Item Value Reference Range Interpretation Comments HEPATITIS A IgM (test code = NON-REACTIVE 15922) HEPATITIS B CORE IgM (test code NON-REACTIVE = 4644) HEPATITIS B SURF AG (test code = NON-REACTIVE 2739) HEPATITIS C ANTIBODY (test code NON-REACTIVE = 4675) INTERPRETATION HEPATITIS A: (NOTE) (test code = 2552) INTERPRETATION HEPATITIS B: (NOTE) (test code = 43832) INTERPRETATION HEPATITIS C: (NOTE) (test code = 72372) VAGINAL PATHOGENS DNA [id number] 00:00:00 Test Item Value Reference Range Interpretation Comments MARIANA SPECIES (test code = 82503) NEGATIVE G. VAGINALIS (test code = ) POSITIVE T. VAGINALIS (test code = 38072) NEGATIVE LIPID [id number] 00:00:00 Test Item Value Reference Range Interpretation Comments CHOLESTEROL (test code = 2210) 217 MG/DL TRIGLYCERIDES (test code = 2232) 409 MG/DL HDL CHOLESTEROL (test code = 2220) 30 MG/DL CALC LDL CHOL (test code = 2237) NOTE MG/DL LIPID [id number] 00:00:00 Test Item Value Reference Range Interpretation Comments CHOLESTEROL (test code = 2210) 217 MG/DL TRIGLYCERIDES (test code = 2232) 409 MG/DL HDL CHOLESTEROL (test code = 2220) 30 MG/DL CALC LDL CHOL (test code = 2237) NOTE MG/DL CBC W/AUTO [id number] 00:00:00 Test Item Value Reference Range Interpretation Comments WBC (test code = 1001) 6.2 K/UL RBC (test code = 1002) 4.25 M/UL HEMOGLOBIN (test code = 1003) 13.4 G/DL HEMATOCRIT (test code = 1004) 39.9 % MCV (test code = 1005) 93.9 fL MCH (test code = 1006) 31.5 PG MCHC (test code = 1007) 33.6 G/DL RDW (test code = 1038) 13.1 % NEUTROPHILS (test code = 1008) 57.6 % LYMPHOCYTES (test code = 1010) 30.6 % MONOCYTES (test code = 1011) 7.7 % EOSINOPHILS (test code = 1012) 3.5 % BASOPHILS (test code = 1013) 0.6 % PLATELET COUNT (test code = 1015) 284 K/UL CBC W/AUTO [id number] 00:00:00 Test Item Value Reference Range Interpretation Comments WBC (test code = 1001) 6.2 K/UL RBC (test code = 1002) 4.25 M/UL HEMOGLOBIN (test code = 1003) 13.4 G/DL HEMATOCRIT (test code = 1004) 39.9 % MCV (test code = 1005) 93.9 fL MCH (test code = 1006) 31.5 PG MCHC (test code = 1007) 33.6 G/DL RDW (test code = 1038) 13.1 % NEUTROPHILS (test code = 1008) 57.6 % LYMPHOCYTES (test code = 1010) 30.6 % MONOCYTES (test code = 1011) 7.7 % EOSINOPHILS (test code = 1012) 3.5 % BASOPHILS (test code = 1013) 0.6 % PLATELET COUNT (test code = 1015) 284 K/UL CBC W/AUTO [id number] 00:00:00 Test Item Value Reference Range Interpretation Comments WBC (test code = 1001) 6.2 K/UL RBC (test code = 1002) 4.25 M/UL HEMOGLOBIN (test code = 1003) 13.4 G/DL HEMATOCRIT (test code = 1004) 39.9 % MCV (test code = 1005) 93.9 fL MCH (test code = 1006) 31.5 PG MCHC (test code = 1007) 33.6 G/DL RDW (test code = 1038) 13.1 % NEUTROPHILS (test code = 1008) 57.6 % LYMPHOCYTES (test code = 1010) 30.6 % MONOCYTES (test code = 1011) 7.7 % EOSINOPHILS (test code = 1012) 3.5 % BASOPHILS (test code = 1013) 0.6 % PLATELET COUNT (test code = 1015) 284 K/UL HEMOGLOBIN [id number] 00:00:00 Test Item Value Reference Range Interpretation Comments HEMOGLOBIN A1c (test code = 23421) 6.1 % HEMOGLOBIN [id number] 00:00:00 Test Item Value Reference Range Interpretation Comments HEMOGLOBIN A1c (test code = 79035) 6.1 % HEMOGLOBIN [id number] 00:00:00 Test Item Value Reference Range Interpretation Comments HEMOGLOBIN A1c (test code = 86878) 6.1 % [id number] 00:00:00 Test Item Value Reference Range Interpretation Comments TSH (test code = 2821) 5.9 UIU/ML [id number] 00:00:00 Test Item Value Reference Range Interpretation Comments TSH (test code = 2821) 5.9 UIU/ML [id number] 00:00:00 Test Item Value Reference Range Interpretation Comments TSH (test code = 2821) 5.9 UIU/ML HIV AB/AG COMBO RFLX [id number] 00:00:00 Test Item Value Reference Range Interpretation Comments HIV 1/2 4TH GEN, RFLX CONF (test NON-REACTIVE code = 3514) HIV AB/AG COMBO RFLX [id number] 00:00:00 Test Item Value Reference Range Interpretation Comments HIV 1/2 4TH GEN, RFLX CONF (test NON-REACTIVE code = 3514) [id number] 00:00:00 Test Item Value Reference Range Interpretation Comments RPR RESULT (test code = NON-REACTIVE 3501) RPR TITER (test code = 3500) NOT INDIC. TITER [id number] 00:00:00 Test Item Value Reference Range Interpretation Comments RPR RESULT (test code = NON-REACTIVE 3501) RPR TITER (test code = 3500) NOT INDIC. TITER [id number] 00:00:00 Test Item Value Reference Range Interpretation Comments RPR RESULT (test code = NON-REACTIVE 3501) RPR TITER (test code = 3500) NOT INDIC. TITER ACUTE HEPATITIS [id number] 00:00:00 Test Item Value Reference Range Interpretation Comments HEPATITIS A IgM (test code = NON-REACTIVE 74302) HEPATITIS B CORE IgM (test code NON-REACTIVE = 4644) HEPATITIS B SURF AG (test code = NON-REACTIVE 2739) HEPATITIS C ANTIBODY (test code NON-REACTIVE = 4675) INTERPRETATION HEPATITIS A: (NOTE) (test code = 2552) INTERPRETATION HEPATITIS B: (NOTE) (test code = 87393) INTERPRETATION HEPATITIS C: (NOTE) (test code = 54500) ACUTE HEPATITIS [id number] 00:00:00 Test Item Value Reference Range Interpretation Comments HEPATITIS A IgM (test code = NON-REACTIVE 76966) HEPATITIS B CORE IgM (test code NON-REACTIVE = 4644) HEPATITIS B SURF AG (test code = NON-REACTIVE 2739) HEPATITIS C ANTIBODY (test code NON-REACTIVE = 4675) INTERPRETATION HEPATITIS A: (NOTE) (test code = 2552) INTERPRETATION HEPATITIS B: (NOTE) (test code = 01047) INTERPRETATION HEPATITIS C: (NOTE) (test code = 16921) VAGINAL PATHOGENS DNA [id number] 00:00:00 Test Item Value Reference Range Interpretation Comments MARIANA SPECIES (test code = ) NEGATIVE G. VAGINALIS (test code = 80923) POSITIVE T. VAGINALIS (test code = ) NEGATIVE VAGINAL PATHOGENS DNA [id number] 00:00:00 Test Item Value Reference Range Interpretation Comments MARIANA SPECIES (test code = ) NEGATIVE G. VAGINALIS (test code = 41251) POSITIVE T. VAGINALIS (test code = 87991) NEGATIVE CULTURE, URINE [ADDED]2016-05-01 00:00:00 Test Item Value Reference Range Interpretation Comments CULTURE, URINE (test SPECIMEN NUMBER: code = 62924) [id number] CULTURE, URINE [ADDED]2016-05-01 00:00:00 Test Item Value Reference Range Interpretation Comments CULTURE, URINE (test SPECIMEN NUMBER: code = 09258) [id number] CULTURE, URINE [ADDED]2016-05-01 00:00:00 Test Item Value Reference Range Interpretation Comments CULTURE, URINE (test SPECIMEN NUMBER: code = 82941) [id number] NOTE: [ADDED]2016-04-30 00:00:00 Test Item Value Reference Range Interpretation Comments NOTE: (test code = 998) (NOTE) NOTE: [ADDED]2016-04-30 00:00:00 Test Item Value Reference Range Interpretation Comments NOTE: (test code = 998) (NOTE) HEMOGLOBIN [id number] 00:00:00 Test Item Value Reference Range Interpretation Comments HEMOGLOBIN A1c (test code = 04758) 6.2 % HEMOGLOBIN [id number] 00:00:00 Test Item Value Reference Range Interpretation Comments HEMOGLOBIN A1c (test code = 02530) 6.2 % CBC W/AUTO [id number] 00:00:00 Test Item Value Reference Range Interpretation Comments WBC (test code = 1001) 7.6 K/UL RBC (test code = 1002) 4.45 M/UL HEMOGLOBIN (test code = 1003) 13.6 G/DL HEMATOCRIT (test code = 1004) 41.1 % MCV (test code = 1005) 92.4 fL MCH (test code = 1006) 30.6 PG MCHC (test code = 1007) 33.1 G/DL RDW (test code = 1038) 13.2 % NEUTROPHILS (test code = 1008) 57.6 % LYMPHOCYTES (test code = 1010) 30.0 % MONOCYTES (test code = 1011) 7.5 % EOSINOPHILS (test code = 1012) 4.0 % BASOPHILS (test code = 1013) 0.9 % PLATELET COUNT (test code = 1015) 320 K/UL CBC W/AUTO [id number] 00:00:00 Test Item Value Reference Range Interpretation Comments WBC (test code = 1001) 7.6 K/UL RBC (test code = 1002) 4.45 M/UL HEMOGLOBIN (test code = 1003) 13.6 G/DL HEMATOCRIT (test code = 1004) 41.1 % MCV (test code = 1005) 92.4 fL MCH (test code = 1006) 30.6 PG MCHC (test code = 1007) 33.1 G/DL RDW (test code = 1038) 13.2 % NEUTROPHILS (test code = 1008) 57.6 % LYMPHOCYTES (test code = 1010) 30.0 % MONOCYTES (test code = 1011) 7.5 % EOSINOPHILS (test code = 1012) 4.0 % BASOPHILS (test code = 1013) 0.9 % PLATELET COUNT (test code = 1015) 320 K/UL COMPREHENSIVE METABOLIC [id number] 00:00:00 Test Item Value Reference Range Interpretation Comments GLUCOSE (test code = 2217) 105 MG/DL BUN (test code = 2208) 11 MG/DL CREATININE (test code = 2214) 0.74 MG/DL eGFR AMER. (test code 108 ML/MIN/1.73 = 15282) eGFR NON- AMER. (test 93 ML/MIN/1.73 code = 63595) CALC BUN/CREAT (test code = 15 RATIO 2235) SODIUM (test code = 2231) 141 MEQ/L POTASSIUM (test code = 2228) 4.4 MEQ/L CHLORIDE (test code = 2215) 99 MEQ/L CARBON DIOXIDE (test code = 26 MEQ/L 2205) CALCIUM (test code = 2209) 10.3 MG/DL PROTEIN, TOTAL (test code = 9.3 G/DL 2228) ALBUMIN (test code = 220) 4.8 G/DL CALC GLOBULIN (test code = 4.5 G/DL 2239) CALC A/G RATIO (test code = 1.1 RATIO 2233) BILIRUBIN, TOTAL (test code = 0.4 MG/DL 2206) ALKALINE PHOSPHATASE (test 99 U/L code = 2204) AST (test code = 2218) 30 U/L ALT (test code = 2219) 26 U/L LIPID [id number] 00:00:00 Test Item Value Reference Range Interpretation Comments CHOLESTEROL (test code = 2210) 239 MG/DL TRIGLYCERIDES (test code = 2232) 354 MG/DL HDL CHOLESTEROL (test code = 2220) 34 MG/DL CALC LDL CHOL (test code = 2237) 134 MG/DL RISK RATIO LDL/HDL (test code = 3.95 RATIO 2238) THYROID II PROFILE (T3U, T4, T7, TSH)2016-04-29 00:00:00 Test Item Value Reference Range Interpretation Comments T3 UPTAKE (test code = 2817) 25.8 % T4 (THYROXINE) (test code = 2819) 8.7 UG/DL CALCULATED T7 (FTI) (test code = 2.24 2820) TSH (test code = 2821) 5.3 UIU/ML HEMOGLOBIN [id number] 00:00:00 Test Item Value Reference Range Interpretation Comments HEMOGLOBIN A1c (test code = 10981) 6.2 % HEMOGLOBIN [id number] 00:00:00 Test Item Value Reference Range Interpretation Comments HEMOGLOBIN A1c (test code = 06206) 6.2 % HEMOGLOBIN [id number] 00:00:00 Test Item Value Reference Range Interpretation Comments HEMOGLOBIN A1c (test code = 36177) 6.2 % CBC W/AUTO [id number] 00:00:00 Test Item Value Reference Range Interpretation Comments WBC (test code = 1001) 7.6 K/UL RBC (test code = 1002) 4.45 M/UL HEMOGLOBIN (test code = 1003) 13.6 G/DL HEMATOCRIT (test code = 1004) 41.1 % MCV (test code = 1005) 92.4 fL MCH (test code = 1006) 30.6 PG MCHC (test code = 1007) 33.1 G/DL RDW (test code = 1038) 13.2 % NEUTROPHILS (test code = 1008) 57.6 % LYMPHOCYTES (test code = 1010) 30.0 % MONOCYTES (test code = 1011) 7.5 % EOSINOPHILS (test code = 1012) 4.0 % BASOPHILS (test code = 1013) 0.9 % PLATELET COUNT (test code = 1015) 320 K/UL CBC W/AUTO [id number] 00:00:00 Test Item Value Reference Range Interpretation Comments WBC (test code = 1001) 7.6 K/UL RBC (test code = 1002) 4.45 M/UL HEMOGLOBIN (test code = 1003) 13.6 G/DL HEMATOCRIT (test code = 1004) 41.1 % MCV (test code = 1005) 92.4 fL MCH (test code = 1006) 30.6 PG MCHC (test code = 1007) 33.1 G/DL RDW (test code = 1038) 13.2 % NEUTROPHILS (test code = 1008) 57.6 % LYMPHOCYTES (test code = 1010) 30.0 % MONOCYTES (test code = 1011) 7.5 % EOSINOPHILS (test code = 1012) 4.0 % BASOPHILS (test code = 1013) 0.9 % PLATELET COUNT (test code = 1015) 320 K/UL CBC W/AUTO [id number] 00:00:00 Test Item Value Reference Range Interpretation Comments WBC (test code = 1001) 7.6 K/UL RBC (test code = 1002) 4.45 M/UL HEMOGLOBIN (test code = 1003) 13.6 G/DL HEMATOCRIT (test code = 1004) 41.1 % MCV (test code = 1005) 92.4 fL MCH (test code = 1006) 30.6 PG MCHC (test code = 1007) 33.1 G/DL RDW (test code = 1038) 13.2 % NEUTROPHILS (test code = 1008) 57.6 % LYMPHOCYTES (test code = 1010) 30.0 % MONOCYTES (test code = 1011) 7.5 % EOSINOPHILS (test code = 1012) 4.0 % BASOPHILS (test code = 1013) 0.9 % PLATELET COUNT (test code = 1015) 320 K/UL COMPREHENSIVE METABOLIC [id number] 00:00:00 Test Item Value Reference Range Interpretation Comments GLUCOSE (test code = 2217) 105 MG/DL BUN (test code = 2208) 11 MG/DL CREATININE (test code = 2214) 0.74 MG/DL eGFR AMER. (test code 108 ML/MIN/1.73 = 12144) eGFR NON- AMER. (test 93 ML/MIN/1.73 code = 26378) CALC BUN/CREAT (test code = 15 RATIO 2235) SODIUM (test code = 2231) 141 MEQ/L POTASSIUM (test code = 2228) 4.4 MEQ/L CHLORIDE (test code = 2215) 99 MEQ/L CARBON DIOXIDE (test code = 26 MEQ/L 2205) CALCIUM (test code = 2209) 10.3 MG/DL PROTEIN, TOTAL (test code = 9.3 G/DL 2228) ALBUMIN (test code = 2201) 4.8 G/DL CALC GLOBULIN (test code = 4.5 G/DL 2240) CALC A/G RATIO (test code = 1.1 RATIO 2234) BILIRUBIN, TOTAL (test code = 0.4 MG/DL 2206) ALKALINE PHOSPHATASE (test 99 U/L code = 2204) AST (test code = 2218) 30 U/L ALT (test code = 2219) 26 U/L COMPREHENSIVE METABOLIC [id number] 00:00:00 Test Item Value Reference Range Interpretation Comments GLUCOSE (test code = 2217) 105 MG/DL BUN (test code = 2208) 11 MG/DL CREATININE (test code = 2214) 0.74 MG/DL eGFR AMER. (test code 108 ML/MIN/1.73 = 19726) eGFR NON- AMER. (test 93 ML/MIN/1.73 code = 64660) CALC BUN/CREAT (test code = 15 RATIO 2235) SODIUM (test code = 2231) 141 MEQ/L POTASSIUM (test code = 2228) 4.4 MEQ/L CHLORIDE (test code = 2215) 99 MEQ/L CARBON DIOXIDE (test code = 26 MEQ/L 2205) CALCIUM (test code = 2209) 10.3 MG/DL PROTEIN, TOTAL (test code = 9.3 G/DL 2228) ALBUMIN (test code = 2201) 4.8 G/DL CALC GLOBULIN (test code = 4.5 G/DL 2239) CALC A/G RATIO (test code = 1.1 RATIO 4) BILIRUBIN, TOTAL (test code = 0.4 MG/DL 2206) ALKALINE PHOSPHATASE (test 99 U/L code = 2204) AST (test code = 2218) 30 U/L ALT (test code = 2219) 26 U/L LIPID [id number] 00:00:00 Test Item Value Reference Range Interpretation Comments CHOLESTEROL (test code = 2210) 239 MG/DL TRIGLYCERIDES (test code = 2232) 354 MG/DL HDL CHOLESTEROL (test code = 2220) 34 MG/DL CALC LDL CHOL (test code = 2237) 134 MG/DL RISK RATIO LDL/HDL (test code = 3.95 RATIO 2238) LIPID [id number] 00:00:00 Test Item Value Reference Range Interpretation Comments CHOLESTEROL (test code = 2210) 239 MG/DL TRIGLYCERIDES (test code = 2232) 354 MG/DL HDL CHOLESTEROL (test code = 2220) 34 MG/DL CALC LDL CHOL (test code = 2237) 134 MG/DL RISK RATIO LDL/HDL (test code = 3.95 RATIO 2238) THYROID II PROFILE (T3U, T4, T7, TSH)2016-04-29 00:00:00 Test Item Value Reference Range Interpretation Comments T3 UPTAKE (test code = 2817) 25.8 % T4 (THYROXINE) (test code = 2819) 8.7 UG/DL CALCULATED T7 (FTI) (test code = 2.24 2820) TSH (test code = 2821) 5.3 UIU/ML THYROID II PROFILE (T3U, T4, T7, TSH)2016-04-29 00:00:00 Test Item Value Reference Range Interpretation Comments T3 UPTAKE (test code = 2817) 25.8 % T4 (THYROXINE) (test code = 2819) 8.7 UG/DL CALCULATED T7 (FTI) (test code = 2.24 2820) TSH (test code = 2821) 5.3 UIU/ML CBC W/AUTO [id number] 00:00:00 Test Item Value Reference Range Interpretation Comments WBC (test code = 1001) 6.3 K/UL RBC (test code = 1002) 4.18 M/UL HEMOGLOBIN (test code = 1003) 12.9 G/DL HEMATOCRIT (test code = 1004) 39.5 % MCV (test code = 1005) 94.5 fL MCH (test code = 1006) 30.9 PG MCHC (test code = 1007) 32.7 G/DL RDW (test code = 1038) 14.1 % NEUTROPHILS (test code = 1008) 52.9 % LYMPHOCYTES (test code = 1010) 33.0 % MONOCYTES (test code = 1011) 8.5 % EOSINOPHILS (test code = 1012) 5.0 % BASOPHILS (test code = 1013) 0.6 % PLATELET COUNT (test code = 1015) 294 K/UL CBC W/AUTO [id number] 00:00:00 Test Item Value Reference Range Interpretation Comments WBC (test code = 1001) 6.3 K/UL RBC (test code = 1002) 4.18 M/UL HEMOGLOBIN (test code = 1003) 12.9 G/DL HEMATOCRIT (test code = 1004) 39.5 % MCV (test code = 1005) 94.5 fL MCH (test code = 1006) 30.9 PG MCHC (test code = 1007) 32.7 G/DL RDW (test code = 1038) 14.1 % NEUTROPHILS (test code = 1008) 52.9 % LYMPHOCYTES (test code = 1010) 33.0 % MONOCYTES (test code = 1011) 8.5 % EOSINOPHILS (test code = 1012) 5.0 % BASOPHILS (test code = 1013) 0.6 % PLATELET COUNT (test code = 1015) 294 K/UL HEMOGLOBIN [id number] 00:00:00 Test Item Value Reference Range Interpretation Comments HEMOGLOBIN A1c (test code = 74340) 6.0 % HEMOGLOBIN [id number] 00:00:00 Test Item Value Reference Range Interpretation Comments HEMOGLOBIN A1c (test code = 80776) 6.0 % CBC W/AUTO [id number] 00:00:00 Test Item Value Reference Range Interpretation Comments WBC (test code = 1001) 6.3 K/UL RBC (test code = 1002) 4.18 M/UL HEMOGLOBIN (test code = 1003) 12.9 G/DL HEMATOCRIT (test code = 1004) 39.5 % MCV (test code = 1005) 94.5 fL MCH (test code = 1006) 30.9 PG MCHC (test code = 1007) 32.7 G/DL RDW (test code = 1038) 14.1 % NEUTROPHILS (test code = 1008) 52.9 % LYMPHOCYTES (test code = 1010) 33.0 % MONOCYTES (test code = 1011) 8.5 % EOSINOPHILS (test code = 1012) 5.0 % BASOPHILS (test code = 1013) 0.6 % PLATELET COUNT (test code = 1015) 294 K/UL CBC W/AUTO [id number] 00:00:00 Test Item Value Reference Range Interpretation Comments WBC (test code = 1001) 6.3 K/UL RBC (test code = 1002) 4.18 M/UL HEMOGLOBIN (test code = 1003) 12.9 G/DL HEMATOCRIT (test code = 1004) 39.5 % MCV (test code = 1005) 94.5 fL MCH (test code = 1006) 30.9 PG MCHC (test code = 1007) 32.7 G/DL RDW (test code = 1038) 14.1 % NEUTROPHILS (test code = 1008) 52.9 % LYMPHOCYTES (test code = 1010) 33.0 % MONOCYTES (test code = 1011) 8.5 % EOSINOPHILS (test code = 1012) 5.0 % BASOPHILS (test code = 1013) 0.6 % PLATELET COUNT (test code = 1015) 294 K/UL CBC W/AUTO [id number] 00:00:00 Test Item Value Reference Range Interpretation Comments WBC (test code = 1001) 6.3 K/UL RBC (test code = 1002) 4.18 M/UL HEMOGLOBIN (test code = 1003) 12.9 G/DL HEMATOCRIT (test code = 1004) 39.5 % MCV (test code = 1005) 94.5 fL MCH (test code = 1006) 30.9 PG MCHC (test code = 1007) 32.7 G/DL RDW (test code = 1038) 14.1 % NEUTROPHILS (test code = 1008) 52.9 % LYMPHOCYTES (test code = 1010) 33.0 % MONOCYTES (test code = 1011) 8.5 % EOSINOPHILS (test code = 1012) 5.0 % BASOPHILS (test code = 1013) 0.6 % PLATELET COUNT (test code = 1015) 294 K/UL HEMOGLOBIN [id number] 00:00:00 Test Item Value Reference Range Interpretation Comments HEMOGLOBIN A1c (test code = 36983) 6.0 % HEMOGLOBIN [id number] 00:00:00 Test Item Value Reference Range Interpretation Comments HEMOGLOBIN A1c (test code = 33420) 6.0 % HEMOGLOBIN [id number] 00:00:00 Test Item Value Reference Range Interpretation Comments HEMOGLOBIN A1c (test code = 53148) 6.0 % VITAMIN B 12 AND FOLIC [id number] 00:00:00 Test Item Value Reference Range Interpretation Comments VITAMIN B-12 (test code = 2840) >2000 PG/ML FOLIC ACID (test code = 2695) >24.0 NG/ML CBC W/AUTO [id number] 00:00:00 Test Item Value Reference Range Interpretation Comments WBC (test code = 1001) 8.5 K/UL RBC (test code = 1002) 4.39 M/UL HEMOGLOBIN (test code = 1003) 13.9 G/DL HEMATOCRIT (test code = 1004) 40.1 % MCV (test code = 1005) 91.3 fL MCH (test code = 1006) 31.7 PG MCHC (test code = 1007) 34.7 G/DL RDW (test code = 1038) 13.6 % NEUTROPHILS (test code = 1008) 53 % LYMPHOCYTES (test code = 1010) 33 % MONOCYTES (test code = 1011) 10 % EOSINOPHILS (test code = 1012) 3 % BASOPHILS (test code = 1013) 1 % PLATELET COUNT (test code = 1015) 318 K/UL CBC W/AUTO [id number] 00:00:00 Test Item Value Reference Range Interpretation Comments WBC (test code = 1001) 8.5 K/UL RBC (test code = 1002) 4.39 M/UL HEMOGLOBIN (test code = 1003) 13.9 G/DL HEMATOCRIT (test code = 1004) 40.1 % MCV (test code = 1005) 91.3 fL MCH (test code = 1006) 31.7 PG MCHC (test code = 1007) 34.7 G/DL RDW (test code = 1038) 13.6 % NEUTROPHILS (test code = 1008) 53 % LYMPHOCYTES (test code = 1010) 33 % MONOCYTES (test code = 1011) 10 % EOSINOPHILS (test code = 1012) 3 % BASOPHILS (test code = 1013) 1 % PLATELET COUNT (test code = 1015) 318 K/UL VITAMIN B 12 AND FOLIC [id number] 00:00:00 Test Item Value Reference Range Interpretation Comments VITAMIN B-12 (test code = 2840) >2000 PG/ML FOLIC ACID (test code = 2695) >24.0 NG/ML VITAMIN B 12 AND FOLIC [id number] 00:00:00 Test Item Value Reference Range Interpretation Comments VITAMIN B-12 (test code = 2840) >2000 PG/ML FOLIC ACID (test code = 2695) >24.0 NG/ML CBC W/AUTO [id number] 00:00:00 Test Item Value Reference Range Interpretation Comments WBC (test code = 1001) 8.5 K/UL RBC (test code = 1002) 4.39 M/UL HEMOGLOBIN (test code = 1003) 13.9 G/DL HEMATOCRIT (test code = 1004) 40.1 % MCV (test code = 1005) 91.3 fL MCH (test code = 1006) 31.7 PG MCHC (test code = 1007) 34.7 G/DL RDW (test code = 1038) 13.6 % NEUTROPHILS (test code = 1008) 53 % LYMPHOCYTES (test code = 1010) 33 % MONOCYTES (test code = 1011) 10 % EOSINOPHILS (test code = 1012) 3 % BASOPHILS (test code = 1013) 1 % PLATELET COUNT (test code = 1015) 318 K/UL CBC W/AUTO [id number] 00:00:00 Test Item Value Reference Range Interpretation Comments WBC (test code = 1001) 8.5 K/UL RBC (test code = 1002) 4.39 M/UL HEMOGLOBIN (test code = 1003) 13.9 G/DL HEMATOCRIT (test code = 1004) 40.1 % MCV (test code = 1005) 91.3 fL MCH (test code = 1006) 31.7 PG MCHC (test code = 1007) 34.7 G/DL RDW (test code = 1038) 13.6 % NEUTROPHILS (test code = 1008) 53 % LYMPHOCYTES (test code = 1010) 33 % MONOCYTES (test code = 1011) 10 % EOSINOPHILS (test code = 1012) 3 % BASOPHILS (test code = 1013) 1 % PLATELET COUNT (test code = 1015) 318 K/UL CBC W/AUTO [id number] 00:00:00 Test Item Value Reference Range Interpretation Comments WBC (test code = 1001) 8.5 K/UL RBC (test code = 1002) 4.39 M/UL HEMOGLOBIN (test code = 1003) 13.9 G/DL HEMATOCRIT (test code = 1004) 40.1 % MCV (test code = 1005) 91.3 fL MCH (test code = 1006) 31.7 PG MCHC (test code = 1007) 34.7 G/DL RDW (test code = 1038) 13.6 % NEUTROPHILS (test code = 1008) 53 % LYMPHOCYTES (test code = 1010) 33 % MONOCYTES (test code = 1011) 10 % EOSINOPHILS (test code = 1012) 3 % BASOPHILS (test code = 1013) 1 % PLATELET COUNT (test code = 1015) 318 K/UL COMPREHENSIVE METABOLIC [id number] 00:00:00 Test Item Value Reference Range Interpretation Comments GLUCOSE (test code = 2217) 88 MG/DL BUN (test code = 2208) 13 MG/DL CREATININE (test code = 2214) 0.79 MG/DL eGFR AMER. (test code 100 ML/MIN/1.73 = 55427) eGFR NON- AMER. (test 87 ML/MIN/1.73 code = 03776) CALCULATED BUN/CREAT (test 16 RATIO code = 2235) SODIUM (test code = 2231) 139 MEQ/L POTASSIUM (test code = 2228) 4.0 MEQ/L CHLORIDE (test code = 2215) 104 MEQ/L CARBON DIOXIDE (test code = 24 MEQ/L 2206) CALCIUM (test code = 2209) 9.9 MG/DL PROTEIN, TOTAL (test code = 8.5 G/DL 2228) ALBUMIN (test code = 2201) 4.5 G/DL CALCULATED GLOBULIN (test 4.0 G/DL code = 2240) CALCULATED A/G RATIO (test 1.1 RATIO code = 2234) BILIRUBIN, TOTAL (test code = 0.4 MG/DL 2206) ALKALINE PHOSPHATASE (test 95 U/L code = 2204) SGOT (AST) (test code = 2218) 51 U/L SGPT (ALT) (test code = 2219) 49 U/L LIPID [id number] 00:00:00 Test Item Value Reference Range Interpretation Comments CHOLESTEROL (test code = 2210) 211 MG/DL TRIGLYCERIDES (test code = 2232) 174 MG/DL HDL CHOLESTEROL (test code = 2220) 35 MG/DL CALCULATED LDL CHOL (test code = 141 MG/DL 2236) RISK RATIO LDL/HDL (test code = 4.03 RATIO 8) CBC W/AUTO [id number] 00:00:00 Test Item Value Reference Range Interpretation Comments WBC (test code = 1001) 8.7 K/UL RBC (test code = 1002) 4.46 M/UL HEMOGLOBIN (test code = 1003) 14.3 G/DL HEMATOCRIT (test code = 1004) 42.4 % MCV (test code = 1005) 95.1 fL MCH (test code = 1006) 32.1 PG MCHC (test code = 1007) 33.7 G/DL RDW (test code = 1038) 12.9 % NEUTROPHILS (test code = 1008) 66 % LYMPHOCYTES (test code = 1010) 24 % MONOCYTES (test code = 1011) 6 % EOSINOPHILS (test code = 1012) 3 % BASOPHILS (test code = 1013) % PLATELET COUNT (test code = 1015) 354 K/UL CBC W/AUTO [id number] 00:00:00 Test Item Value Reference Range Interpretation Comments WBC (test code = 1001) 8.7 K/UL RBC (test code = 1002) 4.46 M/UL HEMOGLOBIN (test code = 1003) 14.3 G/DL HEMATOCRIT (test code = 1004) 42.4 % MCV (test code = 1005) 95.1 fL MCH (test code = 1006) 32.1 PG MCHC (test code = 1007) 33.7 G/DL RDW (test code = 1038) 12.9 % NEUTROPHILS (test code = 1008) 66 % LYMPHOCYTES (test code = 1010) 24 % MONOCYTES (test code = 1011) 6 % EOSINOPHILS (test code = 1012) 3 % BASOPHILS (test code = 1013) % PLATELET COUNT (test code = 1015) 354 K/UL HEMOGLOBIN [id number] 00:00:00 Test Item Value Reference Range Interpretation Comments HEMOGLOBIN A1c (test code = 83301) 6.9 % HEMOGLOBIN [id number] 00:00:00 Test Item Value Reference Range Interpretation Comments HEMOGLOBIN A1c (test code = 55794) 6.9 % [id number] 00:00:00 Test Item Value Reference Range Interpretation Comments TSH (test code = 2821) 8.7 UIU/ML [id number] 00:00:00 Test Item Value Reference Range Interpretation Comments TSH (test code = 2821) 8.7 UIU/ML COMPREHENSIVE METABOLIC [id number] 00:00:00 Test Item Value Reference Range Interpretation Comments GLUCOSE (test code = 2217) 88 MG/DL BUN (test code = 2208) 13 MG/DL CREATININE (test code = 2214) 0.79 MG/DL eGFR AMER. (test code 100 ML/MIN/1.73 = 04750) eGFR NON- AMER. (test 87 ML/MIN/1.73 code = 16754) CALCULATED BUN/CREAT (test 16 RATIO code = 2235) SODIUM (test code = 2231) 139 MEQ/L POTASSIUM (test code = 2228) 4.0 MEQ/L CHLORIDE (test code = 2215) 104 MEQ/L CARBON DIOXIDE (test code = 24 MEQ/L 2205) CALCIUM (test code = 2209) 9.9 MG/DL PROTEIN, TOTAL (test code = 8.5 G/DL 2228) ALBUMIN (test code = 2201) 4.5 G/DL CALCULATED GLOBULIN (test 4.0 G/DL code = 2240) CALCULATED A/G RATIO (test 1.1 RATIO code = 2234) BILIRUBIN, TOTAL (test code = 0.4 MG/DL 2206) ALKALINE PHOSPHATASE (test 95 U/L code = 2204) SGOT (AST) (test code = 2218) 51 U/L SGPT (ALT) (test code = 2219) 49 U/L COMPREHENSIVE METABOLIC [id number] 00:00:00 Test Item Value Reference Range Interpretation Comments GLUCOSE (test code = 2217) 88 MG/DL BUN (test code = 2208) 13 MG/DL CREATININE (test code = 2214) 0.79 MG/DL eGFR AMER. (test code 100 ML/MIN/1.73 = 23595) eGFR NON- AMER. (test 87 ML/MIN/1.73 code = 78197) CALCULATED BUN/CREAT (test 16 RATIO code = 2235) SODIUM (test code = 2231) 139 MEQ/L POTASSIUM (test code = 2228) 4.0 MEQ/L CHLORIDE (test code = 2215) 104 MEQ/L CARBON DIOXIDE (test code = 24 MEQ/L 2205) CALCIUM (test code = 2209) 9.9 MG/DL PROTEIN, TOTAL (test code = 8.5 G/DL 2228) ALBUMIN (test code = 2201) 4.5 G/DL CALCULATED GLOBULIN (test 4.0 G/DL code = 2240) CALCULATED A/G RATIO (test 1.1 RATIO code = 2234) BILIRUBIN, TOTAL (test code = 0.4 MG/DL 2206) ALKALINE PHOSPHATASE (test 95 U/L code = 2204) SGOT (AST) (test code = 2218) 51 U/L SGPT (ALT) (test code = 2219) 49 U/L LIPID [id number] 00:00:00 Test Item Value Reference Range Interpretation Comments CHOLESTEROL (test code = 2210) 211 MG/DL TRIGLYCERIDES (test code = 2232) 174 MG/DL HDL CHOLESTEROL (test code = 2220) 35 MG/DL CALCULATED LDL CHOL (test code = 141 MG/DL 2236) RISK RATIO LDL/HDL (test code = 4.03 RATIO 2238) LIPID [id number] 00:00:00 Test Item Value Reference Range Interpretation Comments CHOLESTEROL (test code = 2210) 211 MG/DL TRIGLYCERIDES (test code = 2232) 174 MG/DL HDL CHOLESTEROL (test code = 2220) 35 MG/DL CALCULATED LDL CHOL (test code = 141 MG/DL 7) RISK RATIO LDL/HDL (test code = 4.03 RATIO 2238) CBC W/AUTO [id number] 00:00:00 Test Item Value Reference Range Interpretation Comments WBC (test code = 1001) 8.7 K/UL RBC (test code = 1002) 4.46 M/UL HEMOGLOBIN (test code = 1003) 14.3 G/DL HEMATOCRIT (test code = 1004) 42.4 % MCV (test code = 1005) 95.1 fL MCH (test code = 1006) 32.1 PG MCHC (test code = 1007) 33.7 G/DL RDW (test code = 1038) 12.9 % NEUTROPHILS (test code = 1008) 66 % LYMPHOCYTES (test code = 1010) 24 % MONOCYTES (test code = 1011) 6 % EOSINOPHILS (test code = 1012) 3 % BASOPHILS (test code = 1013) % PLATELET COUNT (test code = 1015) 354 K/UL CBC W/AUTO [id number] 00:00:00 Test Item Value Reference Range Interpretation Comments WBC (test code = 1001) 8.7 K/UL RBC (test code = 1002) 4.46 M/UL HEMOGLOBIN (test code = 1003) 14.3 G/DL HEMATOCRIT (test code = 1004) 42.4 % MCV (test code = 1005) 95.1 fL MCH (test code = 1006) 32.1 PG MCHC (test code = 1007) 33.7 G/DL RDW (test code = 1038) 12.9 % NEUTROPHILS (test code = 1008) 66 % LYMPHOCYTES (test code = 1010) 24 % MONOCYTES (test code = 1011) 6 % EOSINOPHILS (test code = 1012) 3 % BASOPHILS (test code = 1013) % PLATELET COUNT (test code = 1015) 354 K/UL CBC W/AUTO [id number] 00:00:00 Test Item Value Reference Range Interpretation Comments WBC (test code = 1001) 8.7 K/UL RBC (test code = 1002) 4.46 M/UL HEMOGLOBIN (test code = 1003) 14.3 G/DL HEMATOCRIT (test code = 1004) 42.4 % MCV (test code = 1005) 95.1 fL MCH (test code = 1006) 32.1 PG MCHC (test code = 1007) 33.7 G/DL RDW (test code = 1038) 12.9 % NEUTROPHILS (test code = 1008) 66 % LYMPHOCYTES (test code = 1010) 24 % MONOCYTES (test code = 1011) 6 % EOSINOPHILS (test code = 1012) 3 % BASOPHILS (test code = 1013) % PLATELET COUNT (test code = 1015) 354 K/UL HEMOGLOBIN [id number] 00:00:00 Test Item Value Reference Range Interpretation Comments HEMOGLOBIN A1c (test code = 62367) 6.9 % HEMOGLOBIN [id number] 00:00:00 Test Item Value Reference Range Interpretation Comments HEMOGLOBIN A1c (test code = 68628) 6.9 % HEMOGLOBIN [id number] 00:00:00 Test Item Value Reference Range Interpretation Comments HEMOGLOBIN A1c (test code = 54711) 6.9 % [id number] 00:00:00 Test Item Value Reference Range Interpretation Comments TSH (test code = 2821) 8.7 UIU/ML [id number] 00:00:00 Test Item Value Reference Range Interpretation Comments TSH (test code = 2821) 8.7 UIU/ML [id number] 00:00:00 Test Item Value Reference Range Interpretation Comments TSH (test code = 2821) 8.7 UIU/ML
[2022-02-28] MEDS ORDERED: MORPHINE 4 MG/ML SYR ONE (15:06)
[2022-02-28] MEDS ORDERED: ONDANSETRON 4 MG/2 ML VIAL ONE (15:06)
--- NOTE | 2022-02-28 15:15 | RAD REPORT ---
EXAM DESCRIPTION: CT - [id number] - 02/28/2022 3:03 pm CLINICAL HISTORY: Trauma, head and neck injury. fall, head injury on Eliquis COMPARISON: No comparisons TECHNIQUE: Axial 5 mm thick images of the head were obtained. Axial 2 mm thick images of the cervical spine were obtained with sagittal and coronal reconstruction images generated and reviewed. All CT scans are performed using dose optimization technique as appropriate and may include automated exposure control or mA/KV adjustment according to patient size. FINDINGS: CT HEAD WITHOUT CONTRAST: No acute hemorrhage, hydrocephalus or extra-axial collection is identified.No areas of brain edema or midline shift. The paranasal sinuses and mastoids are clear.The calvarium is intact. CT CERVICAL SPINE WITHOUT CONTRAST: No fracture or subluxation.No prevertebral soft tissues swelling is identified. IMPRESSION: No acute intracranial or cervical spine findings.
--- NOTE | 2022-02-28 15:44 | RAD REPORT ---
EXAM DESCRIPTION: RAD - Forearm Right - 02/28/2022 3:36 pm CLINICAL HISTORY: PAIN COMPARISON: No comparisons FINDINGS: Distal radius fracture is seen with intra-articular extension. Ulnar styloid avulsion frac ture evident. No dislocation seen. Moderate soft tissue swelling along the dorsum of the wrist.
[2022-02-28 15:55] LABS: Absolute Lymphocytes (CBC) 1.8 K/uL (0.7-4.9); Hematocrit 42.6 % (36.0-45.0); MCV 93.5 fL (80-100); MPV 8.1 fL (7.6-11.3); RBC Red Blood Cell Count 4.56 M/uL (3.86-4.86)
[2022-02-28 16:01] LABS: Protime INR 1.19
[2022-02-28] MEDS ORDERED: POTASSIUM CL SA 10 MEQ TAB PO ONE (16:32)
[2022-02-28] MEDS ORDERED: HYDROCODONE/APAP 5/325 MG TAB ONE (16:37)
--- NOTE | 2022-02-28 17:09 | RAD REPORT ---
EXAM DESCRIPTION: RAD - Lumbar Spine 3 Views - 02/28/2022 5:00 pm CLINICAL HISTORY: LOWER BACK PAIN Radiculopathy COMPARISON: Lumbar Spine 3 Views dated 05/21/2016 FINDINGS: Diffuse osteopenia is present. Vertebral body heights appear maintained. No compression fr acture noted. Mild disc thinning lower lumbar levels. No spondylolysis or spondylolisthesis. IMPRESSION: Mild diffuse osteopenia is seen. No acute lumbar spine finding.
--- NOTE | 2022-02-28 17:34 | ER ---
Nurse's Notes [facility] Name: Constance Daugherty Age: 56 yrs Sex: Female : 1965 Arrival Date: 02/28/2022 Time: 14:28 Bed 3 Private MD: Diagnosis: Closed fracture of right wrist;Closed Head Injury Presentation: 02/28 14:28 Chief complaint: Patient states: Fell back into a bench at work 20 min [employer]. Hematoma to ll1 back of head and R wrist deformity per EMS. Possible LOC. Care prior to arrival: Splint applied. Mechanism of Injury: Fall. Trauma event details: Injury occurred in the [facility]. 14:28 Acuity: JACKIE 2 ll1 14:28 Method Of Arrival: EMS ll1 14:34 Coronavirus screen: Vaccine status: Patient reports receiving the 2nd dose of the covid ll1 vaccine. Client denies travel out of the [place] in the last 14 days. At this time, the client does not indicate any symptoms associated with coronavirus-19. Ebola Screen: Patient denies travel to an Ebola-affected area in the 21 days before illness onset. Initial Sepsis Screen: Does the patient meet any 2 criteria? No. Patient's initial sepsis screen is negative. Does the patient have a suspected source of infection? No. Patient's initial sepsis screen is negative. Risk Assessment: Do you want to hurt yourself or someone else? Patient reports no desire to harm self or others. Onset of symptoms was February 28, 2022. Trauma Activation: Not Applicable Physician: ED Physician; Name: ; Notified At: ; Arrived At: Physician: General Surgeon; Name: ; Notified At: ; Arrived At: Physician: Radiology; Name: ; Notified At: ; Arrived At: Physician: Respiratory; Name: ; Notified At: ; Arrived At: Physician: Lab; Name: ; Notified At: ; Arrived At: Historical: - Allergies: 14:31 No Known Allergies; ll1 - PMHx: 14:31 Depression; Diabetes - NIDDM; Fibromyalgia; Hypothyroidism; blood clot L lung; ll1 - Immunization history:: Client reports receiving the 2nd dose of the Covid vaccine. - Immunization history: Last tetanus immunization: - up to date. - Social history:: Smoking status: Patient denies any tobacco usage or history of. - Social history: Denies using tobacco products. Screenin:33 Abuse screen: Denies threats or abuse. Nutritional screening: No deficits noted. ll1 Tuberculosis screening: No symptoms or risk factors identified. Fall Risk Fall in past 12 months (25 points). IV access (20 points). Total Macias Fall Scale indicates High Risk Score (45 or more points). Fall prevention measures have been instituted. Side Rails Up X 2 Placed Close to Nursing Station Frequent Obs/Assessments Occuring Family Present and informed to notify staff if the need to leave the bedside As available patient and family educated on Fall Prevention Program and Strategies. Primary Survey: 14:31 NO uncontrolled hemorrhage observed. A: The client is awake and alert. The airway is ll1 patent. Breathing/Chest: Spontaneous respiratory effort, equal unlabored respirations, breath sounds clear bilaterally, regular pattern, symmetrical chest rise and fall. Circulation: No external hemorrhage present. Regular and strong central pulse, skin warm/dry/normal color. Disability Exposure/Environment: There is no evidence of uncontrolled external bleeding. 19:14 Reassessment Breathing: Spontaneous respiratory effort, equal unlabored respirations, ll1 breath sounds clear bilaterally, regular pattern with symmetrical chest rise and fall. Secondary Survey: 14:32 HEENT: Head Other hematoma. Musculoskeletal: Circulation, motion, and sensation intact. ll1 Capillary refill < 3 seconds, Reports pain in R wrist. Assessment: 14:30 General: Appears uncomfortable, Behavior is calm, cooperative, appropriate for age. ll1 Pain: Complains of pain in R wrist and head Pain currently is 10 out of 10 on a pain scale. Quality of pain is described as aching, throbbing. Neuro: Level of Consciousness is awake, alert, obeys commands, Oriented to person, place, time, situation, Appropriate for age Moves all extremities. Full function Speech is normal, Facial symmetry appears normal, Pupils are PERRLA, Reports headache hematoma to back of head. Musculoskeletal: Circulation, motion, and sensation intact. Capillary refill < 3 seconds, Reports pain in R wrist. 15:30 Reassessment: No changes from previously documented assessment. Gait steady to ll1 restroom. Low back and and tailbone pain reported after walking from restroom. Dr. Montgomery informed. 15:50 Reassessment: No changes from previously documented assessment. Patient and/or family ll1 updated on plan of care and expected duration. Pain level reassessed. 16:45 Reassessment: No changes from previously documented assessment. Patient and/or family ll1 updated on plan of care and expected duration. Pain level reassessed. 17:45 Reassessment: No changes from previously documented assessment. Patient and/or family ll1 updated on plan of care and expected duration. Pain level reassessed. Patient is alert, oriented x 3, equal unlabored respirations, skin warm/dry/pink. 18:45 Reassessment: No changes from previously documented assessment. Patient and/or family ll1 updated on plan of care and expected duration. Pain level reassessed. 19:15 Musculoskeletal: Circulation, motion, and sensation intact. Capillary refill < 3 ll1 seconds. Vital Signs: 14:32 BP 137 / 83; Pulse 97; Resp 18; Temp 98.4; Pulse Ox 98% ; Pain 10/10; ll1 16:40 BP 159 / 96; Pulse 90; Resp 17; Pulse Ox 98% ; ll1 19:13 BP 132 / 74; Pulse 77; Resp 16; Pulse Ox 98% ; Pain 5/10; ll1 Heidi Coma Score: 14:32 Eye Response: spontaneous(4). Verbal Response: oriented(5). Motor Response: obeys ll1 commands(6). Total: 15. Trauma Score (Adult): 14:32 Eye Response: spontaneous(1); Verbal Response: oriented(1); Motor Response: obeys ll1 commands(2); Systolic BP: > 89 mm Hg(4); Respiratory Rate: 10 to 29 per min(4); Heidi Score: 15; Trauma Score: 12 ED Course: 14:28 Patient arrived in ED. ll1 14:29 Triage completed. ll1 14:33 Patient has correct armband on for positive identification. Bed in low position. Call ll1 light in reach. Side rails up X2. Patient maintains SpO2 saturation greater than 95% on room air. 14:34 Thermoregulation: warm blanket given to patient. ll1 14:39 Pinky Montgomery MD is Attending Physician. sd2 14:40 Inserted saline lock: 22 gauge in left antecubital area, using aseptic technique. Blood ll1 collected. 14:49 Catrina Coppola RN is Primary Nurse. ll1 15:05 CT Head C Spine In Process Unspecified. EDMS 15:38 XRAY Forearm RIGHT In Process Unspecified. EDMS 17:00 XRAY Lumbar Spine (3 Views) In Process Unspecified. EDMS 17:33 Mele Yoder MD is Referral Physician. sd2 18:30 Splint/sling/ice applied as appropriate. Splint applied. Affected limb elevated. ll1 19:14 No provider procedures requiring assistance completed. IV discontinued, intact, ll1 bleeding controlled, No redness/swelling at site. Pressure dressing applied. Administered Medications: 15:49 Drug: Zofran (Ondansetron) 4 mg Route: IVP; Site: left antecubital; ll1 17:54 Follow up: Response: No adverse reaction ll1 15:51 Drug: morphine 4 mg Route: IVP; Infused Over: 4 mins; Site: left antecubital; ll1 17:54 Follow up: Response: No adverse reaction; Pain is decreased; RASS: Alert and Calm (0) ll1 16:38 Drug: Potassium Chloride 40 mEq Route: PO; ll1 17:54 Follow up: Response: No adverse reaction ll1 16:40 Drug: HYDROcodone-acetaminophen 5 mg-325 mg 1 tabs Route: PO; ll1 17:54 Follow up: Response: No adverse reaction ll1 Medication: 14:34 VIS not applicable for this client. ll1 Intake: 19:14 PO: 100ml; Total: 100ml. ll1 Output: 19:14 Urine: 200ml; Total: 200ml. ll1 Outcome: 17:34 Discharge ordered by . sd2 19:14 Discharged to home ambulatory. ll1 19:14 Condition: stable 19:14 Discharge instructions given to patient, Instructed on discharge instructions, follow up and referral plans. no drinking with medication, no driving heavy equipment, medication usage, Demonstrated understanding of instructions, follow-up care, medications, splint care, Prescriptions given X 1. 19:15 Patient left the ED. ll1 Signatures: Dispatcher [employer] Catrina Varner RN RN ll1 Pinky Montgomery MD MD sd2
--- NOTE | 2022-02-28 17:34 | EDPHYS ---
Physician Documentation [facility] Name: Constance Daugherty Age: 56 yrs Sex: Female : 1965 Arrival Date: 02/28/2022 Time: 14:28 Bed 3 Private MD: ED Physician Pinky Montgomery HPI: 02/28 17:18 This 56 yrs old Female presents to ER via EMS with complaints of Fall Injury, sd2 Elbow Injury. 17:18 . sd2 17:29 56-year-old female presents via EMS with chief complaint of fall. She reports she was sd2 at work and fell backwards hitting her head on a bench and braced herself with her left wrist causing pain to that area as well. She states she did have brief loss of consciousness. She denies any neck or back pain, chest pain or abdominal pain. She has been ambulatory since the fall. She is currently on Eliquis for a blood clot that she had recently.. Historical: - Allergies: 14:31 No Known Allergies; ll1 - PMHx: 14:31 Depression; Diabetes - NIDDM; Fibromyalgia; Hypothyroidism; blood clot L lung; ll1 - Immunization history:: Client reports receiving the 2nd dose of the Covid vaccine. - Immunization history: Last tetanus immunization: - up to date. - Social history:: Smoking status: Patient denies any tobacco usage or history of. - Social history: Denies using tobacco products. ROS: 17:29 Constitutional: Negative for fever, chills, and weight loss, Eyes: Negative for injury, sd2 pain, redness, and discharge, Cardiovascular: Negative for chest pain, palpitations, and edema, Respiratory: Negative for shortness of breath, cough, wheezing. Abdomen/GI: Negative for abdominal pain, nausea, vomiting, diarrhea. Back: Positive for injury and pain. (Pt did not initially report but later reported) MS/Extremity: Negative for injury and deformity, Skin: Negative for injury, rash, and discoloration, Neuro: Negative for headache, numbness and tingling. Exam: 17:29 Constitutional: This is a well developed, well nourished patient who is awake, alert, sd2 and in no acute distress. Head/Face: Normocephalic, small scalp hematoma present to R parietal area Eyes: EOMI, normal conjunctiva bilaterally Neck: Trachea midline, no thyromegaly or masses palpated, and no cervical lymphadenopathy. Supple, full range of motion without nuchal rigidity, or vertebral point tenderness. No Meningismus. Chest/axilla: Normal chest wall appearance and motion. Nontender with no deformity. Cardiovascular: Regular rate and rhythm with a normal S1 and S2. No gallops, murmurs, or rubs. 2+ distal pulses. Respiratory: Lungs have equal breath sounds bilaterally, clear to auscultation and percussion. No rales, rhonchi or wheezes noted. No increased work of breathing, no retractions or nasal flaring. Abdomen/GI: Soft, non-tender, with normal bowel sounds. No guarding or rebound. No evidence of tenderness throughout. Skin: Warm, dry with normal turgor. Normal color with no rashes, no lesions, and no evidence of cellulitis. MS/ Extremity: Pulses equal, no cyanosis. Neurovascular intact. Limited ROM to R wrist 2/2 pain. Psych: Awake, alert, with orientation to person, place and time. Behavior, mood, and affect are within normal limits. Vital Signs: 14:32 BP 137 / 83; Pulse 97; Resp 18; Temp 98.4; Pulse Ox 98% ; Pain 10/10; ll1 16:40 BP 159 / 96; Pulse 90; Resp 17; Pulse Ox 98% ; ll1 19:13 BP 132 / 74; Pulse 77; Resp 16; Pulse Ox 98% ; Pain 5/10; ll1 Heidi Coma Score: 14:32 Eye Response: spontaneous(4). Verbal Response: oriented(5). Motor Response: obeys ll1 commands(6). Total: 15. Trauma Score (Adult): 14:32 Eye Response: spontaneous(1); Verbal Response: oriented(1); Motor Response: obeys ll1 commands(2); Systolic BP: > 89 mm Hg(4); Respiratory Rate: 10 to 29 per min(4); [place] Score: 15; Trauma Score: 12 MDM: 14:39 Patient medically screened. sd2 17:29 Differential diagnosis: Differential diagnosis includes but is not limited to: sd2 Fracture, contusion, abrasion, closed head injury, pneumothorax, intra-abdominal injury, intracranial hemorrhage, spinal injury among others. Data reviewed: vital signs, nurses notes, EMS record, radiologic studies. Counseling: I had a detailed discussion with the patient and/or guardian regarding: the historical points, exam findings, and any diagnostic results supporting the discharge/admit diagnosis, radiology results, the need for outpatient follow up, to return to the emergency department if symptoms worsen or persist or if there are any questions or concerns that arise at home. Medical screen evaluation completed. [facility] emergency medical condition absent. ED course: Imaging reviewed and shows a right wrist fracture. The patient is closed and neurovascularly intact. Her pain was controlled in the ER. She was placed in a temporary splint and patient will be follow-up outpatient with orthopedics. She was advised of continued supportive care for her symptoms and need for outpatient follow-up. She verbalizes understanding of discharge plan and strict return precautions.. 02/28 14:52 Order name: CBC with Diff; Complete Time: 16:06 sd2 02/28 14:52 Order name: BMP; Complete Time: 16:27 sd2 02/28 14:52 Order name: XRAY Forearm RIGHT; Complete Time: 15:49 sd2 02/28 14:52 Order name: CT Head C Spine; Complete Time: 15:49 sd2 02/28 14:52 Order name: PT-INR; Complete Time: 16:06 sd2 02/28 14:52 Order name: Ptt, Activated; Complete Time: 16:06 sd2 02/28 15:50 Order name: XRAY Lumbar Spine (3 Views); Complete Time: 17:13 sd2 02/28 16:06 Order name: Splint - Sugar Tong - Forearm; Complete Time: 17:53 sd2 Administered Medications: 15:49 Drug: Zofran (Ondansetron) 4 mg Route: IVP; Site: left antecubital; ll1 17:54 Follow up: Response: No adverse reaction ll1 15:51 Drug: morphine 4 mg Route: IVP; Infused Over: 4 mins; Site: left antecubital; ll1 17:54 Follow up: Response: No adverse reaction; Pain is decreased; RASS: Alert and Calm (0) ll1 16:38 Drug: Potassium Chloride 40 mEq Route: PO; ll1 17:54 Follow up: Response: No adverse reaction ll1 16:40 Drug: HYDROcodone-acetaminophen 5 mg-325 mg 1 tabs Route: PO; ll1 17:54 Follow up: Response: No adverse reaction ll1 Disposition Summary: 02/28/22 17:34 Discharge Ordered Location: Home sd2 Problem: new sd2 Symptoms: have improved sd2 Condition: Stable sd2 Diagnosis - Closed fracture of right wrist sd2 - Closed Head Injury sd2 Followup: sd2 - With: Mele Yoder MD - When: 2 - 3 days - Reason: Recheck today's complaints, Continuance of care, Re-evaluation by your physician Discharge Instructions: - Discharge Summary Sheet sd2 - Head Injury, Adult sd2 - Wrist Fracture Treated With Immobilization sd2 Forms: - Work release form mw2 - Medication Reconciliation Form sd2 - Thank You Letter sd2 - Antibiotic Education sd2 - Prescription Opioid Use sd2 Prescriptions: - Ibuprofen 800 mg Oral Tablet - take 1 tablet by ORAL route every 8 hours As needed take with food; 20 tablet; sd2 Refills: 0, Product Selection Permitted - Tramadol 50 mg Oral Tablet - take 1 tablet by ORAL route every 6 hours As needed as needed; 12 tablet; sd2 Refills: 0, Product Selection Permitted Signatures: Dispatcher [employer] EDCatrina Narvaez RN RN ll1 Pinky Montgomery MD MD sd2 Corrections: (The following items were deleted from the chart) 17:30 17:29 56-year-old female presents via EMS with chief complaint of fall. She reports she sd2 was at work and fell backwards hitting her head on a bench and braced herself with her left wrist causing pain to that area as well. She states she did have brief loss of consciousness. She denies any neck or back pain, chest pain or abdominal pain. She has been ambulatory since the fall.. sd2
[2022-02-28 19:22] VITALS: TEMP 98.4; O2SAT 98
[2022-02-28 19:25] VITALS: BP 132/74
== END 2022-02-28 19:15 | disposition home or self-care (01) ==
LOC: ER 14:16
PROC: 2W3EX1Z Immobilization of Right Hand using Splint (ICD-10-PCS; principal; 2022-02-28)
DX: S62.101A Fracture of unspecified carpal bone, right wrist, initial encounter for closed fracture (principal); W01.198A Fall on same level from slipping, tripping and stumbling with subsequent striking against other object, initial encounter; Y93.9 Activity, unspecified; Y92.9 Unspecified place or not applicable; S09.90XA Unspecified injury of head, initial encounter; E11.9 Type 2 diabetes mellitus without complications; E03.9 Hypothyroidism, unspecified; M79.7 Fibromyalgia; F32.A Depression, unspecified
CPT/HCPCS: 85025; 80048; 36415; 85610; 85730; 70450; 72125; 72100; 73090; 96375; 96374; 99284; 29125; J2405